=== PATIENT | female | born 1935 | race Caucasian/White ===

== ENCOUNTER 2018-10-29 18:55 | Observation (INO) | payer MEDICARE, OTHER, MEDICAID ==
[2018-10-29 19:37] LABS: #Basophils 0.2 thou/uL (0.0-0.2); #Eosinphils 0.7 thou/uL (0.0-0.7); #Lymphocytes 4.6 thou/uL (1.20-3.40); #Monocytes 0.5 thou/uL (0.11-0.59); #Neutrophils 4.2 thou/uL (1.40-6.50); %Basophils 2.2 % (0.0-1.0); %Eosinophils 6.6 % (0.0-10.0); %Monocytes 5.3 % (0.0-10.0); %Neutrophils 40.9 % (42.0-75.0); Hemoglobin 13.7 g/dL (12.0-16.0); Mean Corpuscular HGB CONC 32.5 g/dL (32.0-36.0); Mean Corpuscular Volume 92.5 fL (78.0-98.0); Mean Platelet Volume 7.1 fL (7.4-10.4); Platelet Count 265 thou/uL (130-400); RBC Distribution Width 13.8 % (11.5-14.5); Red Blood Cell (RBC) Count 4.57 mill/uL (4.20-5.40); White Blood Cell (WBC) Count 10.2 thou/uL (4.8-10.8)
--- NOTE | 2018-10-29 19:53 | RAD ---
PORTABLE CHEST: 10/29/18 HISTORY: Chest pain. Cough. Heart size is within normal limits. There are atherosclerotic changes of the aorta. Chronic lung alfaro ges are seen. No acute process demonstrated. IMPRESSION: No active intrathoracic disease. POS: [facility]
[2018-10-29 19:59] LABS: ALT (SGPT) 10 U/L (8-55); AST (SGOT) 16 U/L (5-34); Albumin 4.5 g/dL (3.4-4.8); Alkaline Phosphatase 120 U/L (40-150); Anion Gap 14 mmol/L (10-20); BUN (Urea Nitrogen) 16 mg/dL (9.8-20.1); Bilirubin, Total 0.3 mg/dL (0.2-1.2); Calc. Creatinine Clearance 0 mL/min (70-130); Calcium 11.2 mg/dL (7.8-10.44); Carbon Dioxide 29 mmol/L (23-31); Chloride 100 mmol/L (98-107); Estimated GFR-MDRD 41; Globulin 2.3 g/dL (2.4-3.5); Glucose 102 mg/dL (83-110); Lipase 25 U/L (8-78); Potassium 4.7 mmol/L (3.5-5.1); Protein, Total 6.8 g/dL (6.0-8.3); Sodium 138 mmol/L (136-145)
[2018-10-29] MEDS ORDERED: Aspirin Chewable 81 MG TAB ONE (20:58)
[2018-10-29] MEDS ORDERED: HYDROcodone/Acetaminophen 5/325 mg Tablet ONE (20:58)
[2018-10-29] MEDS ORDERED: Aspirin 325 MG TAB ONE (20:59)
[2018-10-29 23:04] VITALS: BMI 19.8
[2018-10-29] MEDS ORDERED: Acetaminophen 325 MG TAB PO PRN (23:04)
[2018-10-29 23:12] LABS: Troponin I Less than 0.010 ng/mL (< 0.028)
[2018-10-29] MEDS ORDERED: Nitroglycerin 0.4 MG TAB (25 Tab Bottle) PO PRN (23:47)
[2018-10-30] MEDS: levETIRAcetam 500 MG TAB PO SCH ×3 (00:11→20:34)
[2018-10-30] MEDS: diphenhydrAMINE 25 MG CAP PO SCH ×2 (00:11→20:32)
--- NOTE | 2018-10-30 00:42 | HP ---
PRIMARY CARE PHYSICIAN: Dr. Polk. CHIEF COMPLAINT: Chest pain. HISTORY OF PRESENT ILLNESS: Ms. Wilkerson is a pleasant 83-year-old female with past medical history significant for hypertension, hyperlipidemia, atrial flutter, status post CTI ablation with Dr. Morataya last year, and COPD with ongoing tobacco abuse, who presented to the hospital today with complaints of chest discomfort. She describes the discomfort as a pressure. It lasted for about 30 minutes and came on while she was watching TV. She denies any associated symptoms with the discomfort, however, states that she has had intermittent chest discomfort feeling like pressure over the past month or so. On arrival to the ER, workup included an EKG, which shows sinus rhythm with a right bundle-branch block. Her serial troponin has been negative x2. Her chest pain had resolved prior to her arrival at the ER, and she is currently chest pain free. The patient was seen by Dr. Morataya in June of 2017 at this facility, and the patient had ablation of left atrial atypical flutter. To her knowledge, she has had no recurrence of arrhythmia. She was advised to follow up with Cardiology outpatient, however, did not ever see them as an outpatient. REVIEW OF SYSTEMS: A 12-point review of systems performed and is negative except that stated above. She has been in her usual state of health and denies any fever or chills. She has some chronic issues involving her COPD and has a productive cough from time to time, and does suffer from occasional falls and uses a walker. ALLERGIES: AZITHROMYCIN, LEVOFLOXACIN, PENICILLINS, AND SULFA. CURRENT MEDICATIONS: 1. Tylenol No.4 one tablet p.o. b.i.d. 2. Enablex 15 mg p.o. at bedtime. 3. Diltiazem 30 mg p.o. t.i.d. 4. Benadryl 25 mg p.o. at bedtime. 5. Lexapro 20 mg p.o. daily. 6. Mucinex 600 mg p.o. b.i.d. 7. Keppra 500 mg p.o. b.i.d. 8. Losartan 100 mg p.o. daily. 9. Myrbetriq 25 mg p.o. daily. 10. Movantik 25 mg p.o. daily. PAST MEDICAL HISTORY: 1. Hypertension. 2. COPD/chronic respiratory failure requiring intermittent oxygen use with continued tobacco usage. 3. Chronic pain. 4. Anxiety disorder. 5. Seizure disorder, well controlled on Keppra. 6. Hyperlipidemia. 7. Incontinence. 8. Chronic constipation secondary to pain medications. PAST SURGICAL HISTORY: 1. EP study and CTI ablation of left atrial flutter in June 2017. 2. . SOCIAL HISTORY: The patient lives with family. She has smoked one pack per day for many years. She did briefly try to quit with E-cigarettes, but is currently back to smoking. No alcohol or illicit drug use. FAMILY HISTORY: Significant for MIs in her brother, sister, and father. Family history also significant for diabetes mellitus. PHYSICAL EXAMINATION: VITAL SIGNS: Blood pressure 161/86, O2 saturation 98% on 2 L nasal cannula, pulse 81, temperature 97.7. GENERAL: This is a well-nourished elderly female, resting comfortably in bed, in no acute distress. HEENT: Head is atraumatic and normocephalic. Mucous membranes are moist. NECK: Trachea is midline. No JVD. CV: S1 and S2. Regular rate and rhythm. No appreciable murmurs, rubs, or gallops. LUNGS: Regular respiratory rate and pattern, overall decreased vesicular breath sounds throughout. ABDOMEN: Positive bowel sounds. Soft, nontender. EXTREMITIES: No edema, warm, well perfused. NEUROLOGICAL: Cranial nerves 2 through 12 grossly intact. The patient is nonfocal. LABORATORY DATA: White blood cell count 10.2, hemoglobin 13.7, hematocrit 42.2, platelets are 265. Sodium 137, potassium 4.7, carbon dioxide 29, creatinine 1.25, glucose 102, calcium 11.2. Troponin negative x2. ASSESSMENT: 1. Intermittent chest pain, atypical and typical features in a patient with multiple risk factors, acute coronary syndrome ruled out. 2. Abnormal EKG/right bundle branch block. 3. Atrial flutter status post CTI ablation with Dr. Morataya, currently in normal sinus rhythm, CHADS-VASc equals 4. 4. Chronic obstructive pulmonary disease with ongoing tobacco abuse. 5. Hypertension. 6. Hyperlipidemia. 7. Seizure disorder, controlled with Keppra. 8. Elevated creatinine, no history of chronic kidney disease. 9. Chronic constipation. PLAN: Given the patient's risk factors and complaints, we will further risk stratify with nuclear stress test tomorrow morning. We will continue telemetry monitoring. We will get a fasting lipid panel in the morning. We will start 81 mg aspirin daily. Regarding her elevated Cr, the patient was given IV fluids in the ER, and we will recheck a chemistry in the morning. Further recommendations based on findings of noninvasive testing. Job ID: [id number] MTDD
[2018-10-30 01:59] LABS: Cardiac Risk 2.6 (Less than 4.5)
[2018-10-30 02:03] LABS: Anion Gap 14 mmol/L (10-20); BUN (Urea Nitrogen) 15 mg/dL (9.8-20.1); Calc. Creatinine Clearance 36 mL/min (70-130); Calcium 10.2 mg/dL (7.8-10.44); Carbon Dioxide 21 mmol/L (23-31); Chloride 105 mmol/L (98-107); Estimated GFR-MDRD 48; Glucose 102 mg/dL (83-110); Potassium 4.3 mmol/L (3.5-5.1); Sodium 136 mmol/L (136-145)
[2018-10-30 02:09] LABS: Troponin I Less than 0.010 ng/mL (< 0.028)
[2018-10-30] MEDS: Acetaminophen/Codeine 30-300mg Tablet PO SCH ×2 (08:21→20:33)
[2018-10-30] MEDS: guaiFENesin ER 600 MG TAB PO SCH ×2 (08:22→20:33)
[2018-10-30] MEDS: Aspirin 81 mg Enteric Coated Tablet PO SCH (08:22)
[2018-10-30] MEDS: Losartan 25 MG TAB PO SCH (12:55)
[2018-10-30] MEDS: Escitalopram Oxalate 20 mg Tablet PO SCH (12:56)
--- NOTE | 2018-10-30 14:24 | NM ---
MYOCARDIAL PERFUSION SCAN: The patient was given 10 mCi of technetium sestamibi for rest imaging and 30 mCi for stress imaging. Patient was stressed according to Lexiscan protocol. Left ventricle was imaged with SPECT imaging pro jected in three planes. Attenuation correction images obtained. INDICATION: Chest pain. FINDINGS: Decreased activity in the inferior wall corrects with attenuation correction. However, there is persi stent loss of activity in the lateral wall on stress images which appears to be reverse on rest imagi ng. Wall motion appears normal. Ejection fraction is recorded at over 70%. IMPRESSION: Evidence of reversible ischemia in the lateral wall. POS: OFF
[2018-10-30] MEDS ORDERED: Regadenoson 0.4 MG/5 ML SYRINGE ONE (16:55)
--- NOTE | 2018-10-30 18:10 | PDOC.HOSPP ---
- Subjective Encounter Date: 10/30/18 Encounter Time: 18:00 Subjective: f/u for chest pain with abnormal OPTICAL DISPENSER showing lateral wall reversibility. No new CP. - Objective Vital Signs & Weight: Vital Signs (12 hours) Temp Pulse Resp BP Pulse Ox 10/30/18 16:26 97.7 F 77 20 138/66 99 10/30/18 12:50 97.6 F 80 18 151/70 H 100 10/30/18 07:38 98.1 F 94 20 123/71 92 L Weight Weight 123 lb 1.6 oz I&O: 10/29/18 10/30/18 10/31/18 06:59 06:59 06:59 Intake Total 360 Output Total 250 Balance 110 Result Diagrams: 10/29/18 19:30 10/30/18 01:30 Additional Labs: Laboratory Tests 10/30/18 01:37 Triglycerides 73 Cholesterol 179 LDL Cholesterol, Calc 96 HDL Cholesterol 68 Radiology Reviewed by me: Yes (OPTICAL DISPENSER - reversible ischemia lat wall) EKG Reviewed by me: Yes (Tele - SR) Hospitalist ROS - Medication Medications: Active Medications Generic Name Dose Route Start Last Admin Trade Name Freq PRN Reason Stop Dose Admin Acetaminophen/Codeine Phosphate 1 tab 10/30/18 09:00 10/30/18 08:21 Tylenol #3 PO 1 tab BID NICKIE Administration Aspirin 81 mg 10/30/18 09:00 10/30/18 08:22 Ecotrin PO 81 mg DAILY NICKIE Administration Diltiazem HCl 30 mg 10/30/18 09:00 10/30/18 12:55 Cardizem PO 30 mg TID NICKIE Administration Diphenhydramine HCl 25 mg 10/29/18 23:45 10/30/18 00:11 Benadryl PO 10/31/18 01:00 25 mg NOW NICKIE Administration Escitalopram Oxalate 20 mg 10/30/18 09:00 10/30/18 12:56 Lexapro PO 20 mg DAILY NICKIE Administration Guaifenesin 600 mg 10/30/18 09:00 10/30/18 08:22 Mucinex PO 600 mg BID NICKIE Administration Levetiracetam 500 mg 10/30/18 09:00 10/30/18 08:22 Keppra PO 500 mg BID NICKIE Administration Levetiracetam 500 mg 10/29/18 23:45 09/14/19 00:11 Keppra PO 10/31/18 01:00 500 mg NOW NICKIE Administration Losartan Potassium 100 mg 10/30/18 09:00 10/30/18 12:55 Cozaar PO 100 mg DAILY NICKIE Administration Mirabegron 25 mg 10/30/18 09:00 10/30/18 12:56 Myrbetriq Er PO 25 mg DAILY NICKIE Administration Miscellaneous Medication 25 mg 10/30/18 09:00 10/30/18 12:56 Movantik PO Not Given DAILY NICKIE - Exam General Appearance: NAD, awake alert Eye: PERRL, anicteric sclera ENT: normocephalic atraumatic, no oropharyngeal lesions Neck: supple, symmetric, no JVD, no thyromegaly, no lymphadenopathy Heart: RRR, no murmur, no gallops, no rubs, normal peripheral pulses Respiratory: CTAB, no wheezes, no rales, no ronchi Gastrointestinal: soft, non-tender, non-distended, normal bowel sounds, no palpable masses Extremities: no cyanosis, no clubbing, no edema Skin: normal turgor, no lesions Neurological: cranial nerve grossly intact, no focal deficits, no new deficit Musculoskeletal: normal tone, normal strength Psychiatric: A&O x 3 Hosp A/P (1) Chest pain Code(s): R07.9 - CHEST PAIN, UNSPECIFIED Status: Acute Plan: Suspicious for angina with reversible ischemia noted on OPTICAL DISPENSER, consult Cardiology , continue ASA (2) Myocardial ischemia Code(s): I25.9 - CHRONIC ISCHEMIC HEART DISEASE, UNSPECIFIED Status: Acute Plan: Suspected given OPTICAL DISPENSER findings, see above (3) Tobacco abuse Code(s): Z72.0 - TOBACCO USE Status: Chronic Plan: Tobacco cessation resources (4) Chest mass Code(s): R22.2 - LOCALIZED SWELLING, MASS AND LUMP, TRUNK Status: Acute Plan: Suspected given findings on OPTICAL DISPENSER, check CT chest for better visualization - Plan plan discussed w/ family Consult Cardiology Continue ASA CT chest with contrast for ? chest mass Tobacco cessation resources IV NS @ 75ml/h
[2018-10-30] MEDS ORDERED: DARIFENACIN HYDROBROMIDE 15 MG PO SCH (21:00)
[2018-10-30] MEDS: Sodium Chloride 0.9% 1,000 ML IV SCH (21:29)
[2018-10-31] MEDS: diphenhydrAMINE 25 MG CAP PO SCH ×2 (02:02→20:29)
[2018-10-31] MEDS: levETIRAcetam 500 MG TAB PO SCH ×3 (02:03→20:30)
[2018-10-31] MEDS: Acetaminophen/Codeine 30-300mg Tablet PO SCH ×2 (09:04→20:29)
[2018-10-31] MEDS: guaiFENesin ER 600 MG TAB PO SCH ×2 (09:05→20:30)
[2018-10-31] MEDS: Losartan 25 MG TAB PO SCH (09:05)
[2018-10-31] MEDS: Escitalopram Oxalate 20 mg Tablet PO SCH (09:05)
[2018-10-31] MEDS: Aspirin 81 mg Enteric Coated Tablet PO SCH (09:05)
[2018-10-31] MEDS: Sodium Chloride 0.9% 1,000 ML IV SCH ×2 (10:26→11:39)
--- NOTE | 2018-10-31 13:02 | CT ---
CHEST CT WITH CONTRAST: HISTORY: Evaluate for possible mediastinal mass. Tobacco abuse. COMPARISON: None. FINDINGS: MEDIASTINUM: No mass, lymphadenopathy, or hematoma. HEART: Normal heart size. No significant pericardial fluid. There is atherosclerosis of a nonaneurysmal aorta. UPPER ABDOMEN: Visualized upper solid abdominal viscera is grossly unremarkable. TRACHEA AND CENTRAL BRONCHI: Patent. No pleural effusion or pneumothorax. Linear opacities scattered throughout the lung parenchyma likely represent areas of scar and atelecta sis. Emphysematous changes are noted with evidence of hyperinflation. RIGHT LUNG: Scarring in the upper lobe, middle lobe, and lower lobe. Calcified nodule in the lower l obe measuring 1 cm. There is a linear opacity with a nodular component involving the anterior superi or aspect of the right lower lobe. This lesion measures 1.8 cm in the maximum dimension. The nodula r component which is best demonstrated on the coronal reformatted images measures 0.7 cm in the crani ocaudal dimension. This lesion is amenable to PET imaging. LEFT LUNG: Linear opacities in the upper lobe and lower lobe likely representing areas of scarring. There is an irregular marginated opacity in the superior segment of the left lower lobe measuring 0.9 x 0.9 x 0.9 cm. Irregular marginated mass/nodule versus focal area of scarring is a consideration. Based on the size of the lesion, PET imaging is recommended, rather than performing a biopsy which w ill be technically difficult as the lesion abuts the major fissure and is located along the central a spect of the lung. OSSEOUS STRUCTURES: No lytic or blastic lesions. IMPRESSION: Irregular marginated opacities involving the left and right lower lobe which may represent irregular masses versus areas of scarring. Further evaluation with PET imaging is recommended. POS: OFF
[2018-10-31] MEDS ORDERED: Communication Order-Pharmacy FS SCH (13:15)
--- NOTE | 2018-10-31 14:06 | PDOC.HOSPP ---
- Subjective Encounter Date: 10/31/18 Encounter Time: 14:00 Subjective: f/u for CP and abnormal LABORER CHEESEMAKING with suggestion of reversible ischemia of lateral wall. Plan for [facility] 11/01/18. - Objective Vital Signs & Weight: Vital Signs (12 hours) Temp Pulse Resp BP BP Pulse Ox 10/31/18 12:15 97.8 F 72 20 148/68 H 98 10/31/18 07:48 98 F 84 20 142/73 H 97 10/31/18 04:03 75 18 133/65 98 Weight Weight 123 lb 1.6 oz I&O: 10/30/18 10/31/18 11/01/18 06:59 06:59 06:59 Intake Total 1200 1094 Output Total 250 Balance 950 1094 Result Diagrams: 10/29/18 19:30 10/30/18 01:30 Additional Labs: Laboratory Tests 10/30/18 01:37 Triglycerides 73 Cholesterol 179 LDL Cholesterol, Calc 96 HDL Cholesterol 68 Radiology Reviewed by me: Yes (CT chest - ? scarring in bilat bases, no dominant mass) EKG Reviewed by me: Yes (Tele - SR) Hospitalist ROS - Medication Medications: Active Medications Generic Name Dose Route Start Last Admin Trade Name Freq PRN Reason Stop Dose Admin Acetaminophen/Codeine Phosphate 1 tab 10/30/18 09:00 10/31/18 09:04 Tylenol #3 PO 1 tab BID NICKIE Administration Aspirin 81 mg 10/30/18 09:00 10/31/18 09:05 Ecotrin PO 81 mg DAILY NICKIE Administration Diltiazem HCl 30 mg 10/30/18 09:00 10/31/18 09:05 Cardizem PO 30 mg TID NICKIE Administration Diphenhydramine HCl 25 mg 10/30/18 21:00 10/30/18 20:32 Benadryl PO 25 mg HS NICKIE Administration Escitalopram Oxalate 20 mg 10/30/18 09:00 10/31/18 09:05 Lexapro PO 20 mg DAILY NICKIE Administration Guaifenesin 600 mg 10/30/18 09:00 10/31/18 09:05 Mucinex PO 600 mg BID NICKIE Administration Sodium Chloride 1,000 mls @ 75 mls/hr 10/30/18 19:45 10/31/18 11:39 Normal Saline 0.9% IV 1,000 mls .[id number] NICKIE Administration Levetiracetam 500 mg 10/30/18 09:00 10/31/18 09:05 Keppra PO 500 mg BID NICKIE Administration Losartan Potassium 100 mg 10/30/18 09:00 10/31/18 09:05 Cozaar PO 100 mg DAILY NICKIE Administration Mirabegron 25 mg 10/30/18 09:00 10/31/18 09:05 Myrbetriq Er PO 25 mg DAILY NICKIE Administration Miscellaneous Medication 25 mg 10/30/18 09:00 10/31/18 09:05 Movantik PO Not Given DAILY NICKIE - Exam General Appearance: NAD, awake alert Eye: PERRL, anicteric sclera ENT: normocephalic atraumatic, no oropharyngeal lesions Neck: supple, symmetric, no JVD, no thyromegaly, no lymphadenopathy Heart: RRR, no murmur, no gallops, no rubs, normal peripheral pulses Respiratory: CTAB, no wheezes, no rales, no ronchi Gastrointestinal: soft, non-tender, non-distended, normal bowel sounds Extremities: no cyanosis, no clubbing, no edema Skin: normal turgor, no lesions Neurological: cranial nerve grossly intact, no focal deficits, no new deficit Musculoskeletal: normal tone Psychiatric: normal affect, A&O x 3 Hosp A/P (1) Chest pain Code(s): R07.9 - CHEST PAIN, UNSPECIFIED Status: Acute Plan: Concern for angina and suggestion of reversible ischemia on LABORER CHEESEMAKING, plan for [facility] , continue ASA (2) Myocardial ischemia Code(s): I25.9 - CHRONIC ISCHEMIC HEART DISEASE, UNSPECIFIED Status: Acute Plan: See above, Nitrates prn (3) Tobacco abuse Code(s): Z72.0 - TOBACCO USE Status: Chronic Plan: Tobacco cessation resources (4) Chest mass Code(s): R22.2 - LOCALIZED SWELLING, MASS AND LUMP, TRUNK Status: Chronic Plan: Likely scarrring in bilat bases, recommend outpt PET scan on non-emergent basis - Plan plan discussed w/ family, social services counselor, out of bed/ambulate Cardiology consult appreciated Continue ASA Outpt PET scan recommended on non-emergent basis Tobacco cessation resources IV NS @ 100ml/h NPO after MN Plan for [facility] 11/01/18
[2018-11-01] MEDS: Aspirin 81 mg Enteric Coated Tablet PO SCH (05:43)
[2018-11-01] MEDS: Losartan 25 MG TAB PO SCH (05:44)
[2018-11-01] MEDS ORDERED: Sodium Chloride 0.9% 1,000 ML IV SCH (06:00)
[2018-11-01] MEDS ORDERED: Lidocaine 1% (PF) 30 ML VIAL ONE (06:33)
--- NOTE | 2018-11-01 07:21 | CON ---
DATE OF CONSULTATION: REASON FOR CONSULTATION: Chest pain. PRIMARY JEWELRY SETTER: Dr. Ja Olvera. HISTORY OF PRESENT ILLNESS: Ms. Wilkerson is a pleasant 83-year-old woman, who states she has had chest pain over the last month. The pain has been intermittent. The pain is occurring at rest. No other ameliorating, exacerbating, or precipitating factors. She recently underwent a noninvasive stress test that it was felt to be positive for ischemia along the lateral wall. PAST MEDICAL HISTORY: Atrial flutter, status post ablation; hypertension; COPD; anxiety disorder; seizure disorder; hyperlipidemia, incontinence, . SOCIAL HISTORY: Positive tobacco use. HOME MEDICATIONS: Included; 1. Tylenol. 2. Enablex. 3. Diltiazem. 4. Benadryl. 5. Lexapro. 6. Mucinex. 7. Keppra. 8. Losartan. 9. Myrbetriq. 10. Movantik. REVIEW OF SYSTEMS: Reviewed and negative. PHYSICAL EXAMINATION: VITAL SIGNS: Blood pressure 148/68, pulse 72, and temp 97.8. GENERAL: The patient does appear older than stated age and thin. LABORATORY DATA: CK troponin negative. Hemoglobin 13.7, creatinine 1.09. Stress test and myocardial perfusion study as described above. CT scan pending for abnormal uptake on the radiotracer from the stress study. IMPRESSION: 1. Recurrent chest pain. 2. Risk factor for coronary artery disease including tobacco abuse. 3. Abnormal stress study. RECOMMENDATION: Discussed several options with Ms. Wilkerson including medical therapy versus proceeding with coronary angiography. I am concerned that her symptoms have started within the last month with little exertion. The patient has opted for proceeding with coronary angiography, discussed the full detail. Ms. Wilkerson risks included, but not limited to the following: , stroke, [place], need for emergency surgery, loss of limb, bleeding, and infection, as well as a reaction to the dye causing kidney failure and needing long-term dialysis. I also discussed the risks of PCI to include all of the above including coronary dissection and perforation in addition to acute stent thrombosis and restenosis. All questions about the procedure were answered. Given the above, the patient agreed to proceed with procedure. All questions were answered. Also discussed drug-coated versus non-drug coated stent placement. If there is no contraindication, we will proceed with the above procedure. CT results pending. Job ID: [id number]
[2018-11-01] MEDS ORDERED: Heparin 10,000 UNITS/1 ML VIAL ONE (07:24)
[2018-11-01] MEDS ORDERED: Nitroglycerin 100MG/250ML BOT 0 ML ONE (07:24)
[2018-11-01] MEDS ORDERED: Verapamil 5 MG/2 ML VIAL ONE (07:24)
[2018-11-01] MEDS ORDERED: Iopamidol 370 76% 100 ML VIAL ONE (09:43)
[2018-11-01] MEDS ORDERED: Fentanyl 100 MCG/2 ML VIAL ONE (09:56)
[2018-11-01] MEDS ORDERED: Midazolam HCl 2 mg/2 ml Vial ONE (09:56)
[2018-11-01] MEDS ORDERED: Sodium Chloride 0.9% 200 ML IV PRN (10:13)
[2018-11-01] MEDS ORDERED: Sodium Chloride 0.9% 500 ML IV SCH (10:15)
[2018-11-01] MEDS: Acetaminophen/Codeine 30-300mg Tablet PO SCH (11:29)
[2018-11-01] MEDS: Escitalopram Oxalate 20 mg Tablet PO SCH (11:30)
[2018-11-01] MEDS: levETIRAcetam 500 MG TAB PO SCH (11:30)
[2018-11-01] MEDS: guaiFENesin ER 600 MG TAB PO SCH (11:30)
[2018-11-01 16:18] VITALS: BP 149/67; TEMP 98.1
--- NOTE | 2018-11-02 00:32 | DIS ---
DATE OF ADMISSION: 10/29/2018 DATE OF DISCHARGE: 11/01/2018 DISCHARGE DIAGNOSES: 1. Coronary artery disease, mild. Medical management. 2. Chest pain secondary to #1, improved. 3. Tobacco abuse, chronic. 4. Dyslipidemia. 5. Lung nodule versus scarring. CONSULTATIONS: Dr. Woodward and Dr. Olvera with Cardiology Service. PERTINENT LABORATORY AND X-RAY FINDINGS: Creatinine ranged between 1.09 to 1.25. Estimated GFR ranged between 41 to 48. Troponin I negative x3. Total cholesterol 179, triglyceride 73, HDL 68, LDL 96, lipase 25. CBC within normal limits. Portable chest x-ray dated 10/29/2018, showed no acute cardiopulmonary process. Cardiolite stress test dated 10/30/2018, showed reversible ischemia in the lateral wall with calculated ejection fraction of 70%. Cardiac catheterization dated 11/01/2018, showed severe ostial disease 70% involving small vessel. No significant coronary artery disease otherwise noted. Ejection fraction preserved. CT of the chest dated 10/31/2018, showed irregular marginated opacities of the left and right lower lobe, questionable mass versus scarring. Recommending outpatient nonemergent PET scan imaging. HOSPITAL COURSE: The patient was initially admitted after presenting with chest pain with multiple risk factors to include dyslipidemia and tobacco abuse. The patient underwent serial cardiac biomarkers, which were negative x3 proceeding to Cardiolite stress testing showing evidence of reversible ischemia in the lateral wall with preserved ejection fraction of 70%. Cardiology consultation was obtained, at which point, the patient underwent cardiac catheterization on 11/01/2018, showing limited coronary disease of small vessel with ostial lesion in the intermediate ramus with recommendations for medical management. The patient continued on aspirin 81 mg daily with additional Lipitor 40 mg daily. Telemetry monitoring showed sinus mechanism without evidence of acute arrhythmia or dysrhythmia. The patient also underwent evaluation for questionable lung mass including CT of the chest showing irregular areas of opacities in bilateral lung flanagan, potentially representing scar. Current recommendations are for outpatient nonemergent PET scan imaging. Overall, the patient did remain clinically stable during the hospital course. I have examined the patient at time of discharge and discussed followup instructions. The patient verbalized understanding and in agreement, and ready for discharge on 11/01/2018. DISCHARGE MEDICATIONS: 1. Enteric-coated aspirin 81 mg p.o. daily. 2. Isosorbide mononitrate 30 mg p.o. daily. 3. Lipitor 40 mg p.o. daily. 4. Movantik 25 mg p.o. daily. 5. Myrbetriq 25 mg p.o. daily. 6. Losartan 100 mg p.o. daily. 7. Keppra 500 mg p.o. b.i.d. 8. Mucinex ER 600 mg p.o. b.i.d. p.r.n. 9. Lexapro 20 mg p.o. daily. 10. Benadryl 25 mg p.o. at bedtime. 11. Diltiazem 30 mg p.o. t.i.d. 12. Darifenacin hydrobromide 15 mg p.o. at bedtime. 13. Tylenol mg 1 tablet p.o. b.i.d. FOLLOWUP: The patient may follow up with her primary care provider, Dr. Polk within 7 days of discharge. CONDITION ON DISCHARGE: Stable. ACTIVITY: Ad-minal. DIET: Heart healthy. CODE STATUS: Full. DISPOSITION: Home on 11/01/2018. TIME SPENT: Total time preparing and coordinating discharge, 33 minutes. Job ID: [id number]
[2018-11-02] MEDS ORDERED: Isosorbide Mononitrate (ER) 30 MG TAB PO SCH (09:00)
== END 2018-11-01 18:28 | disposition home or self-care (01) ==
LOC: ERS 18:55 → 2SW 20:51 → ERS 22:47
PROVIDERS: ADMIT Internal Medicine; ATTEND Internal Medicine
PROC: 4A023N7 Measurement of Cardiac Sampling and Pressure, Left Heart, Percutaneous Approach (ICD-10-PCS; principal; 2018-10-29)
PROC: B2051ZZ Plain Radiography of Left Heart using Low Osmolar Contrast (ICD-10-PCS; 2018-10-29)
DX: I25.10 Atherosclerotic heart disease of native coronary artery without angina pectoris (principal); E78.5 Hyperlipidemia, unspecified; I10 Essential (primary) hypertension; J44.9 Chronic obstructive pulmonary disease, unspecified; G40.909 Epilepsy, unspecified, not intractable, without status epilepticus; F41.9 Anxiety disorder, unspecified; K59.09 Other constipation; F17.210 Nicotine dependence, cigarettes, uncomplicated; Z79.899 Other long term (current) drug therapy; Z88.0 Allergy status to penicillin; Z88.1 Allergy status to other antibiotic agents; Z88.2 Allergy status to sulfonamides
CPT/HCPCS: 71045; 71260; 78452; 80048; 80053; 80061; 83690; 84484 ×3; 85025; 93005; 93017; 93458; 94760 ×4; 96360; 96361 ×3; 99285; A9500; C1769; G0378 ×5; 36415; 99152; J1644; J2001; J2250; J2785; J3010; Q0163; Q9967

== ENCOUNTER 2019-02-28 14:18 | Observation (INO) | payer MEDICARE, OTHER, MEDICAID ==
--- NOTE | 2019-02-28 14:47 | RAD ---
RADIOGRAPH CHEST 1 VIEW: Date: 02/28/2019 Time: 1443 HOURS HISTORY: 84-year-old female with sudden onset of cough and chest pain. COMPARISON: 10/29/2018. FINDINGS: New finding of silhouetting of the lateral aspect of the left hemidiaphragm with adjacent faint, subt le small area of slightly increased attenuation at the left lateral lung base. No cardiomegaly or pul monary edema. No consolidation. Chronic right apical stranding. IMPRESSION: Subtle new mild change at left lateral lung base. Uncertain whether chronic or acute. Recommend follo w-up with 2 view radiograph in a few days. JN [] POS: OFF
[2019-02-28 14:57] LABS: #Basophils 0.1 thou/uL (0.0-0.2); #Lymphocytes 3.5 thou/uL (1.20-3.40); %Basophils 1.1 % (0.0-1.0); %Eosinophils 0.3 % (0.0-10.0); %Lymphocytes 32.5 % (21.0-51.0); %Monocytes 9.7 % (0.0-10.0); %Neutrophils 56.3 % (42.0-75.0); Hemoglobin 13.2 g/dL (12.0-16.0); Mean Corpuscular HGB CONC 30.8 g/dL (32.0-36.0); Mean Corpuscular Hemoglobin 28.1 pg (27.0-31.0); Mean Corpuscular Volume 91.4 fL (78.0-98.0); Mean Platelet Volume 7.8 fL (7.4-10.4); Platelet Count 271 thou/uL (130-400); RBC Distribution Width 14.5 % (11.5-14.5); Red Blood Cell (RBC) Count 4.71 mill/uL (4.20-5.40); White Blood Cell (WBC) Count 10.7 thou/uL (4.8-10.8)
[2019-02-28 15:03] LABS: ALT (SGPT) 13 U/L (8-55); AST (SGOT) 13 U/L (5-34); Albumin 4.3 g/dL (3.4-4.8); Alkaline Phosphatase 122 U/L (40-110); Anion Gap 10 mmol/L (10-20); BUN (Urea Nitrogen) 29 mg/dL (9.8-20.1); Bilirubin, Total 0.5 mg/dL (0.2-1.2); CK (CPK) 25 U/L (29-168); Calc. Creatinine Clearance 0 mL/min (70-130); Calcium 11.1 mg/dL (7.8-10.44); Carbon Dioxide 32 mmol/L (23-31); Chloride 99 mmol/L (98-107); Estimated GFR-MDRD 49; Globulin 2.7 g/dL (2.4-3.5); Glucose 97 mg/dL (83-110); Potassium 3.8 mmol/L (3.5-5.1); Sodium 137 mmol/L (136-145)
[2019-02-28 18:10] LABS: Troponin I 0.027 ng/mL (< 0.028)
[2019-02-28] MEDS ORDERED: Ondansetron ODT 4 MG TAB SL PRN (18:15)
[2019-02-28] MEDS ORDERED: Acetaminophen 325 MG TAB PO PRN (18:15)
[2019-02-28] MEDS ORDERED: Ondansetron PF 4 MG/2 ML Vial IVP PRN (18:15)
[2019-02-28 18:28] VITALS: BMI 17.2
[2019-02-28] MEDS ORDERED: ADVIL PM PO PRN (19:16)
[2019-02-28] MEDS: Trospium 20 MG TAB PO SCH (19:57)
[2019-02-28] MEDS: guaiFENesin ER 600 MG TAB PO SCH (19:57)
[2019-02-28] MEDS: levETIRAcetam 500 MG TAB PO SCH (19:57)
[2019-02-28] MEDS ORDERED: TYLENOL #4 PATIENT'S HOME MEDICATION PO SCH (21:00)
[2019-02-28] MEDS ORDERED: Atorvastatin Calcium 40 MG TAB PO SCH (21:00)
[2019-02-28] MEDS ORDERED: diphenhydrAMINE 25 MG CAP PO SCH (21:00)
[2019-02-28 21:05] LABS: Troponin I 0.026 ng/mL (< 0.028)
[2019-03-01] MEDS: levETIRAcetam 500 MG TAB PO SCH (08:32)
[2019-03-01] MEDS: guaiFENesin ER 600 MG TAB PO SCH (08:33)
[2019-03-01] MEDS: Trospium 20 MG TAB PO SCH ×2 (08:41→08:43)
[2019-03-01] MEDS ORDERED: Losartan 25 MG TAB PO SCH (09:00)
[2019-03-01] MEDS ORDERED: Loratadine 10 MG TAB PO SCH (09:00)
[2019-03-01] MEDS ORDERED: Isosorbide Mononitrate (ER) 30 MG TAB PO SCH ×2 (09:00→12:45)
[2019-03-01] MEDS ORDERED: Escitalopram Oxalate 20 mg Tablet PO SCH (09:00)
--- NOTE | 2019-03-01 10:26 | HP ---
CHIEF COMPLAINT: Chest pain. HISTORY OF PRESENT ILLNESS: Ms. Wilkerson is an 84-year-old female with past medical history of hypertension, COPD, mild CAD, came because of onset of chest pain in the morning. The patient states she had a sharp pain in the chest, lasted only just few minutes and not associated with any diaphoresis. No nausea or vomiting. No shortness of breath. No dizziness. The pain went away after few minutes, but came back, so it was on and off, lasted only just 2 to 3 minutes. It does not radiate, stays in the chest. It is the substernal area. She does have some cough, but not productive. No fever. The patient decided to come to the hospital because of this pain. By the time she came to the ER, her pain has gone and in the ER the patient was evaluated and found to have normal cardiac enzymes and a normal EKG. She is being admitted to rule out [place] in view of her risk factors. PAST MEDICAL HISTORY: 1. COPD. 2. Hypertension. 3. Chronic back pain. 4. Anxiety disorder. 5. Seizure disorder. 6. Urinary incontinence. 7. Hyperlipidemia. PAST SURGICAL HISTORY: Status post . CURRENT MEDICATIONS: 1. Diltiazem 30 mg t.i.d. 2. Lipitor 40 mg at bedtime. 3. Lexapro 20 mg daily. 4. Mucinex 600 b.i.d. 5. Imdur 30 mg daily. 6. Keppra 500 b.i.d. 7. Claritin 10 mg daily. 8. Losartan 100 mg daily. 9. Myrbetriq 25 mg daily. 10. Movantik 25 mg daily p.r.n. 11. Tylenol No. 4 q.i.d. t.i.d. p.r.n. ALLERGIES: AZITHROMYCIN, LEVOFLOXACIN, PENICILLIN, SULFA. FAMILY HISTORY: Nothing contributory. SOCIAL HISTORY: The patient lives with family. No history of alcohol, continues to smoke half a pack a day. REVIEW OF SYSTEMS: CARDIOVASCULAR: Has chest pain. No shortness of breath. RESPIRATORY: No fever, has some cough. GASTROINTESTINAL: No nausea or vomiting, no abdominal pain. CENTRAL NERVOUS SYSTEM: No headache, no dizziness. PHYSICAL EXAMINATION: GENERAL: The patient is alert, awake, oriented x3. VITAL SIGNS: Temperature 98, pulse 82, respirations 20, blood pressure 170/80. HEENT: Head is normocephalic, atraumatic. Pupils are equal and reactive. Nasopharynx is pale and dry. NECK: Supple. No JVD. LUNGS: Bilateral air entry present. No rales, no rhonchi. HEART: S1 and S2, regular. ABDOMEN: Soft. No distention. No tenderness. No abnormal bowel sounds. RECTAL: Deferred. CENTRAL NERVOUS SYSTEMS: No focal deficits. LABORATORY DATA: CBC shows WBC 10, hemoglobin 13, hematocrit 43, platelets 271. Metabolic panel: Sodium 137, potassium 3.8, chloride 99, CO2 of 32, BUN 29, creatinine 1, glucose 97. Troponin I 0.026. Alkaline phosphatase 122. EKG shows sinus tachycardia with heart rate of 81, no acute ST-T changes seen. ASSESSMENT: 1. Chest pain, atypical, rule out myocardial infarction. 2. Recent coronary angiogram showed mild coronary artery disease in October 2018. 3. Hypertension. 4. Chronic obstructive pulmonary disease. 5. Hyperlipidemia. 6. Chronic back pain. 7. Urinary incontinence. PLAN: 1. Vital signs q.4 hours. 2. Activities, as tolerated. 3. Allergies, azithromycin, sulfa, Levaquin. 4. Hep-Lock. 5. Troponin I q.6 hours x2. 6. Continue home medications. 7. DuoNeb q.i.d. p.r.n. 8. Cardiology consult. Job ID: [id number]
--- NOTE | 2019-03-01 13:15 | CON ---
DATE OF CONSULTATION: 03/01/2019 REASON FOR CONSULTATION: Chest pain. HISTORY OF PRESENT ILLNESS: Mrs. Wilkerson is a pleasant 84-year-old white female who comes to the hospital for chest pain. She was seen in the hospital back in October. She had a stress test and eventually underwent heart catheterization that showed severe intermediate ramus disease, too small for any intervention and she was treated medically for this. She was started on Imdur and sent home. She comes back today as she states that she has had a different type of pain, which is worse when she takes a deep breath. She otherwise denies pain that she has had in the past. She denies any shortness of breath. She continues to smoke almost a pack a day. PAST MEDICAL HISTORY: 1. History of atrial flutter, status post ablation. 2. Hypertension. 3. COPD. 4. Anxiety disorder. 5. Seizure disorder. 6. Hyperlipidemia. 7. Incontinence. 8. . SOCIAL HISTORY: Positive for tobacco use pack a day. FAMILY HISTORY: Noncontributory. OUTPATIENT MEDICATIONS: 1. Tylenol. 2. Advil. 3. Zyrtec. 4. Movantik. 5. Imdur 30 mg a day. 6. Lipitor 40 at bedtime. 7. Lexapro. 8. Keppra. 9. Mucinex. 10. Benadryl. 11. Losartan 100 mg a day. 12. Enablex. 13. Diltiazem 30 mg t.i.d. 14. Myrbetriq. ALLERGIES: AZITHROMYCIN, LEVOFLOXACIN, PENICILLINS, AND SULFA DRUGS. REVIEW OF SYSTEMS: A 12-point review of systems was done and was all negative unless stated in the history of present illness. PHYSICAL EXAMINATION: VITAL SIGNS: Temperature 98.4, pulse 89, respiratory rate 18, saturating 96% on 2 L, and blood pressure 155/76. GENERAL: Awake, alert, and oriented x3, in no distress. HEENT: Normocephalic and atraumatic. NECK: Supple. LUNGS: Clear. CARDIOVASCULAR: S1 and S2. No S3 or S4. No murmurs. ABDOMEN: Soft. Positive bowel sounds. EXTREMITIES: No edema. SKIN: Warm and dry. LABORATORY DATA: Laboratory work was reviewed. CBC unremarkable. Chemistries unremarkable. Troponin is negative x3. BNP was 74. ASSESSMENT AND PLAN: 1. Chest pain, likely noncardiac in nature. Looking back, she had a CAT scan of her chest back in October, which showed an irregular marginated opacity involving the left and right lower lobe, which was thought to be either irregular masses versus areas of scarring. Further evaluation with PET imaging was recommended, I am not sure if this has happened. I would probably either repeat the CT with contrast to make sure these are stable before sending her out. 2. We will increase her Imdur to 60 mg daily to control her blood pressure better and hopefully if there is any component of angina, this will also improved with this. Thank you for letting us to participate in the care of your patient. We will follow. Job ID: [id number]
[2019-03-01] MEDS ORDERED: Iopamidol 370 76% 100 ML VIAL ONE (13:34)
--- NOTE | 2019-03-01 13:43 | CT ---
EXAM: CT of the chest with contrast HISTORY: Chest pain with possible intrathoracic mass COMPARISON: CT chest 10/31/2018 and chest x-ray 02/28/2019 TECHNIQUE: Multiple contiguous axial images were obtained in a CT the chest with contrast. Coronal an d sagittal reformats were performed. FINDINGS: HEART: Normal in size without focal cardiac abnormality MEDIASTINUM: No hilar or mediastinal lymphadenopathy. LUNGS: Atelectasis is seen in the left lower lobe. No central mass is seen. Bronchiectasis is seen in the right middle lobe. Emphysematous changes are seen throughout the lungs. A calcified granuloma is seen in the right lung base. PLEURAL SPACE: No pneumothorax or pleural effusion. CHEST WALL SOFT TISSUES: Unremarkable OSSEOUS STRUCTURES: Degenerative changes in the spine. VISUALIZED SUBDIAPHRAGMATIC STRUCTURES: Cysts in the left kidney. IMPRESSION: Left basilar atelectasis
[2019-03-01 15:27] VITALS: BP 147/67; TEMP 97.8
[2019-03-02] MEDS ORDERED: Isosorbide Mononitrate (ER) 30 MG TAB PO SCH (09:00)
--- NOTE | 2019-03-02 12:57 | DIS ---
DATE OF ADMISSION: 02/28/2019 DATE OF DISCHARGE: 03/01/2019 ADMITTING DIAGNOSES: 1. Chest pain, atypical, rule out myocardial infarction. 2. Recent coronary angiogram showed mild coronary artery disease. 3. Hypertension. 4. Chronic obstructive pulmonary disease. 5. Hyperlipidemia. 6. Chronic back pain. 7. Urinary incontinence. FINAL DIAGNOSES: 1. Chest pain, atypical. No evidence of acute myocardial infarction. 2. Hypertension. 3. Chronic obstructive pulmonary disease. 4. Hyperlipidemia. 5. Chronic back pain. BRIEF SUMMARY OF HOSPITAL COURSE: Ms. Wilkerson is an 84-year-old female admitted because of chest pain, which is atypical, sharp in nature, not associated with any diaphoresis. No nausea or vomiting. No shortness of breath. Pain does not radiate and the patient admitted to rule out myocardial infarction in view of risk factors. Serial cardiac enzymes were done. The second troponin I was 0.27, next troponin I was 0.26. The patient did not have any more chest pain. The patient had an angiogram done few months ago. So, in view of improvement, the patient is discharged home. At the time of discharge, she was stable. Her vital signs are stable. Lungs, clear, heart sounds regular. Abdomen is soft and nontender. Bowel sounds present. DISCHARGE MEDICATIONS: Include, 1. Tylenol with codeine No.4 q.i.d. 2. Movantik 25 mg daily. 3. Myrbetriq 25 mg daily. 4. Losartan 100 mg daily. 5. Enablex 15 mg daily. 6. Mucinex 600 b.i.d. 7. Lexapro 20 mg daily. 8. Diltiazem 30 mg t.i.d. 9. Benadryl 25 mg at bedtime. 10. Keppra 500 b.i.d. 11. Isosorbide mononitrate (Imdur) increased to 60 mg daily. FOLLOWUP: The patient will come for followup in 2 weeks. Job ID: [id number]
--- NOTE | 2019-03-05 14:20 | EKG ---
Test Reason : Blood Pressure : / mmHG Vent. Rate : 081 BPM Atrial Rate : 081 BPM P-R Int : 184 ms QRS Dur : 136 ms QT Int : 418 ms P-R-T Axes : 078 066 074 degrees QTc Int : 485 ms Sinus rhythm with marked sinus arrhythmia Right bundle branch block Abnormal ECG Confirmed by JOSELUIS SEGUNDO DO ([id number]), editorial clerk ALISHA MALIK ([id number]) on 03/05/2019 2:20:35 PM Referred By: Confirmed By:JOSELUIS SEGUNDO DO
== END 2019-03-01 19:13 | disposition home or self-care (01) ==
LOC: ERS 14:18 → 2SW 17:10
PROVIDERS: ADMIT Internal Medicine; ATTEND Internal Medicine
DX: R07.89 Other chest pain (principal); J44.9 Chronic obstructive pulmonary disease, unspecified; I10 Essential (primary) hypertension; I25.10 Atherosclerotic heart disease of native coronary artery without angina pectoris; E78.5 Hyperlipidemia, unspecified; F41.9 Anxiety disorder, unspecified; G40.909 Epilepsy, unspecified, not intractable, without status epilepticus; G89.29 Other chronic pain; M54.9 Dorsalgia, unspecified; F17.210 Nicotine dependence, cigarettes, uncomplicated; R32 Unspecified urinary incontinence; Z79.899 Other long term (current) drug therapy; Z88.0 Allergy status to penicillin; Z88.1 Allergy status to other antibiotic agents; Z88.2 Allergy status to sulfonamides
CPT/HCPCS: 71045; 71260; 80053; 82550; 83880; 84484 ×2; 85025; 93005; 94760; 99285; G0378 ×3; 36415; Q0163; Q9967

== ENCOUNTER 2019-04-19 15:31 | Emergency (ER) | payer MEDICARE, OTHER, MEDICAID ==
--- NOTE | 2019-04-19 16:16 | RAD ---
FRONTAL RADIOGRAPH CHEST: 04/19/19 COMPARISON: 02/28/19 HISTORY: Shortness of breath with left lower quadrant hernia and dental pain/dyspnea. FINDINGS: There is atherosclerotic calcification of the aortic arch. No pneumothorax or pleural fluid is seen a nd there is no focal consolidation or alveolar edema. There is mild increased linear density in the l sheri bases which suggests scar and/or volume loss. No lobar consolidation or alveolar edema. IMPRESSION: Chronic findings as detailed above. No focal consolidation or alveolar edema. If symptoms persists, t wo view examination of the chest may be beneficial. POS: EMELY
[2019-04-19 16:38] LABS: #Basophils 0.1 thou/uL (0.0-0.2); #Eosinphils 0.4 thou/uL (0.0-0.7); #Lymphocytes 2.1 thou/uL (1.20-3.40); #Monocytes 0.8 thou/uL (0.11-0.59); #Neutrophils 11.3 thou/uL (1.40-6.50); %Basophils 0.7 % (0.0-1.0); %Eosinophils 2.5 % (0.0-10.0); %Lymphocytes 14.4 % (21.0-51.0); %Monocytes 5.7 % (0.0-10.0); %Neutrophils 76.7 % (42.0-75.0); Hemoglobin 13.3 g/dL (12.0-16.0); Mean Corpuscular HGB CONC 32.9 g/dL (32.0-36.0); Mean Corpuscular Hemoglobin 29.7 pg (27.0-31.0); Mean Corpuscular Volume 90.5 fL (78.0-98.0); Mean Platelet Volume 6.7 fL (7.4-10.4); Platelet Count 360 thou/uL (130-400); RBC Distribution Width 14.6 % (11.5-14.5); Red Blood Cell (RBC) Count 4.48 mill/uL (4.20-5.40); White Blood Cell (WBC) Count 14.8 thou/uL (4.8-10.8)
[2019-04-19 17:06] LABS: ALT (SGPT) 8 U/L (8-55); AST (SGOT) 19 U/L (5-34); Albumin 3.7 g/dL (3.4-4.8); Alkaline Phosphatase 130 U/L (40-110); Anion Gap 13 mmol/L (10-20); BUN (Urea Nitrogen) 16 mg/dL (9.8-20.1); Bilirubin, Total 0.3 mg/dL (0.2-1.2); Calc. Creatinine Clearance 0 mL/min (70-130); Calcium 10.7 mg/dL (7.8-10.44); Carbon Dioxide 25 mmol/L (23-31); Chloride 98 mmol/L (98-107); Estimated GFR-MDRD 46; Globulin 3.6 g/dL (2.4-3.5); Glucose 109 mg/dL (83-110); Lipase 20 U/L (8-78); Potassium 5.3 mmol/L (3.5-5.1); Protein, Total 7.3 g/dL (6.0-8.3); Sodium 131 mmol/L (136-145)
[2019-04-19] MEDS ORDERED: predniSONE 20 MG TAB ONE ×2 (19:34)
== END 2019-04-19 21:08 | disposition home or self-care (01) ==
LOC: ERS 15:31
DX: J44.1 Chronic obstructive pulmonary disease with (acute) exacerbation (principal); K40.90 Unilateral inguinal hernia, without obstruction or gangrene, not specified as recurrent; I10 Essential (primary) hypertension; I48.91 Unspecified atrial fibrillation; F32.9 Major depressive disorder, single episode, unspecified; F17.210 Nicotine dependence, cigarettes, uncomplicated
CPT/HCPCS: 36415; 71045; 80053; 83605; 83690; 83880; 84484; 85025; 87040; 93005; 94640; 94760; J7512; J7620

== ENCOUNTER 2019-05-02 13:09 | Inpatient (IN) | payer MEDICARE, OTHER, MEDICAID ==
[2019-05-02 14:22] LABS: Bacteria/HPF 2+ HPF (None Seen); Bilirubin Negative (Negative); Blood, Urine 1+ (Negative); Clarity Clear (Clear); Glucose, Urine (Dipstick) Normal (Negative); Leukocyte 500 Leu/uL (Negative); Nitrite 2+ (Negative); Protein, Urine (Dipstick) Negative (Neg-Trace); Squamous Epithelial None Seen HPF (0-3); Urobilinogen Normal mg/dL (Less than 2); WBC/HPF 21-50 HPF (0-3)
[2019-05-02 15:10] LABS: #Basophils 0.1 thou/uL (0.0-0.2); #Eosinphils 0.5 thou/uL (0.0-0.7); #Lymphocytes 1.5 thou/uL (1.20-3.40); #Monocytes 0.6 thou/uL (0.11-0.59); #Neutrophils 16.5 thou/uL (1.40-6.50); %Basophils 0.5 % (0.0-1.0); %Eosinophils 2.8 % (0.0-10.0); %Lymphocytes 7.8 % (21.0-51.0); %Neutrophils 85.9 % (42.0-75.0); Hemoglobin 12.2 g/dL (12.0-16.0); Mean Corpuscular HGB CONC 32.5 g/dL (32.0-36.0); Mean Corpuscular Hemoglobin 29.9 pg (27.0-31.0); Mean Corpuscular Volume 91.9 fL (78.0-98.0); Mean Platelet Volume 6.2 fL (7.4-10.4); Platelet Count 398 thou/uL (130-400); RBC Distribution Width 15.2 % (11.5-14.5); Red Blood Cell (RBC) Count 4.09 mill/uL (4.20-5.40); White Blood Cell (WBC) Count 19.2 thou/uL (4.8-10.8)
[2019-05-02] MEDS ORDERED: cefTRIAXone\\ROCEPHIN 1 GM VIAL ONE (15:10)
[2019-05-02 15:31] LABS: ALT (SGPT) 10 U/L (8-55); AST (SGOT) 12 U/L (5-34); Albumin 3.7 g/dL (3.4-4.8); Alkaline Phosphatase 115 U/L (40-110); Anion Gap 11 mmol/L (10-20); BUN (Urea Nitrogen) 24 mg/dL (9.8-20.1); Bilirubin, Total 0.5 mg/dL (0.2-1.2); Calc. Creatinine Clearance 0 mL/min (70-130); Calcium 10.2 mg/dL (7.8-10.44); Carbon Dioxide 26 mmol/L (23-31); Chloride 102 mmol/L (98-107); Estimated GFR-MDRD 47; Globulin 2.5 g/dL (2.4-3.5); Glucose 80 mg/dL (83-110); Potassium 4.8 mmol/L (3.5-5.1); Protein, Total 6.2 g/dL (6.0-8.3); Sodium 134 mmol/L (136-145)
--- NOTE | 2019-05-02 15:39 | ULT ---
At pelvic sonogram transabdominal and transvaginal imaging HISTORY: Pelvic pain. FINDINGS: Urinary bladder is decompressed. No free fluid is apparent within the pelvis. Uterus is atr ophied with a heterogeneous echotexture. 5.9 cm length. No endometrial thickening is evident. Right ovary shows no focal abnormalities. Left ovary not visualized. No fluid collections or masses evident. IMPRESSION: No abnormalities are demonstrated.
[2019-05-02] MEDS ORDERED: Ondansetron ODT 4 MG TAB SL PRN (18:08)
[2019-05-02] MEDS ORDERED: Ondansetron PF 4 MG/2 ML Vial IVP PRN (18:08)
[2019-05-02] MEDS ORDERED: Acetaminophen 325 MG TAB PO PRN (18:08)
[2019-05-02] MEDS ORDERED: Sodium Chloride 0.9% 1,000 ML IV SCH (18:15)
[2019-05-02 18:24] VITALS: BMI 18.0
[2019-05-02] MEDS ORDERED: ADVIL PM PO PRN (18:50)
[2019-05-02] MEDS ORDERED: TYLENOL WITH CODEINE PO SCH (21:00)
[2019-05-02] MEDS: Acetaminophen/Codeine 30-300mg Tablet PO PRN (21:13)
[2019-05-02] MEDS: guaiFENesin ER 600 MG TAB PO SCH (21:14)
[2019-05-02] MEDS: Atorvastatin Calcium 40 MG TAB PO SCH (21:14)
[2019-05-02] MEDS: Trospium 20 MG TAB PO SCH (21:14)
[2019-05-02] MEDS: levETIRAcetam 500 MG TAB PO SCH (21:14)
[2019-05-02] MEDS: diphenhydrAMINE 25 MG CAP PO SCH (21:14)
--- NOTE | 2019-05-02 21:15 | HP ---
REASON FOR ADMISSION/CHIEF COMPLAINT: Vaginal bleeding. HISTORY OF PRESENT ILLNESS: Ms. Wilkerson is an 84-year-old female with past medical history of COPD, hypertension, urinary incontinence, came because of sudden acute onset of vaginal bleeding last night. The patient had cramping of her abdomen for a few days prior to that and noticed bleeding. She had this problem few years ago, but could not see the clinical cytogenetics director back. The patient was recently seen in the ER, found to have COPD exacerbation, was given steroids and antibiotics, which she just finished a week ago. The patient did not have any chest pain or shortness of breath. No nausea or vomiting. No fever. In the ER, the patient was evaluated and found to have urinary tract infection as well, so the patient is admitted for further evaluation of vaginal bleeding. PAST MEDICAL HISTORY: 1. Hypertension. 2. End-stage COPD. 3. Hyperlipidemia. 4. Chronic back pain. 5. Anxiety disorder. 6. Seizure disorder. 7. Urinary incontinence. PAST SURGICAL HISTORY: Status post . CURRENT MEDICATIONS: The patient is on: 1. Diltiazem 30 mg t.i.d. 2. Lipitor 40 mg at bedtime. 3. Lexapro 20 mg daily. 4. Mucinex 600 b.i.d. 5. Imdur 30 mg daily. 6. Keppra 500 b.i.d. 7. Claritin 10 mg daily. 8. Losartan 100 mg daily. 9. Myrbetriq 25 mg daily. 10. Movantik 25 mg daily. 11. Tylenol No.4 q.i.d. p.r.n. ALLERGIES: 1. AZITHROMYCIN. 2. LEVOFLOXACIN. 3. PENICILLIN. 4. SULFA. FAMILY HISTORY: Nothing contributory. SOCIAL HISTORY: The patient lives with family. No history of alcohol. Continues to smoke half a pack a day. REVIEW OF SYSTEMS: CARDIOVASCULAR: No chest pain. No shortness of breath. RESPIRATORY: No fever or cough. GASTROINTESTINAL: No nausea or vomiting. Has abdominal pain, cramping. CENTRAL NERVOUS SYSTEM: No headache. No dizziness. GENITOURINARY: Has vaginal bleeding. PHYSICAL EXAMINATION: GENERAL: The patient is alert, awake, oriented x3. VITAL SIGNS: Temperature 98, pulse 73, respirations 20, blood pressure 120/60. HEENT: Head is normocephalic, atraumatic. Pupils equal and reactive. Nasopharynx is pale and dry. NECK: Supple. No JVD. LUNGS: Breath sounds diminished bilaterally. No rales. No rhonchi. HEART: S1 and S2, regular. ABDOMEN: Soft. No distention. No tenderness. No organomegaly. Bowel sounds present. RECTAL: Deferred. CENTRAL NERVOUS SYSTEM: Nonfocal. LABORATORY DATA: CBC shows WBC 19, hemoglobin 12, hematocrit 37, platelets 398. Metabolic panel; sodium 134, potassium 4.8, chloride 102, CO2 26, urine nitrogen 24, creatinine 1.1, glucose 80. Urinalysis revealed wbc 21-50, bacteria 2+. Ultrasound of the pelvis unremarkable. ASSESSMENT: 1. Vaginal bleeding. 2. Urinary tract infection. 3. Chronic obstructive pulmonary disease. 4. Hypertension. 5. Urinary incontinence. 6. Chronic pain. 7. Seizure disorder. PLAN: 1. Vital signs q.4 hours. 2. Activity, as tolerated. 3. Allergies, multiple. 4. Hep-Lock. 5. Rocephin 2 g IV piggyback daily. 6. INTERPRETIVE PROGRAM COORDINATOR consult for vaginal bleeding. 7. Leukocytosis. 8. Continue her home medications. 9. We will repeat labs. Job ID: [id number]
[2019-05-03] MEDS: Acetaminophen/Codeine 30-300mg Tablet PO PRN ×3 (05:05→21:07)
[2019-05-03 06:16] LABS: #Basophils 0.1 thou/uL (0.0-0.2); #Eosinphils 0.2 thou/uL (0.0-0.7); #Lymphocytes 1.1 thou/uL (1.20-3.40); #Monocytes 0.9 thou/uL (0.11-0.59); #Neutrophils 11.8 thou/uL (1.40-6.50); %Basophils 0.5 % (0.0-1.0); %Eosinophils 1.1 % (0.0-10.0); %Lymphocytes 7.8 % (21.0-51.0); %Monocytes 6.2 % (0.0-10.0); %Neutrophils 84.4 % (42.0-75.0); Hemoglobin 11.3 g/dL (12.0-16.0); Mean Corpuscular HGB CONC 32.1 g/dL (32.0-36.0); Mean Corpuscular Hemoglobin 29.2 pg (27.0-31.0); Mean Platelet Volume 6.6 fL (7.4-10.4); Platelet Count 319 thou/uL (130-400); RBC Distribution Width 15.1 % (11.5-14.5); Red Blood Cell (RBC) Count 3.86 mill/uL (4.20-5.40)
[2019-05-03 06:27] LABS: ALT (SGPT) Less than 7 U/L (8-55); AST (SGOT) 12 U/L (5-34); Albumin 3.4 g/dL (3.4-4.8); Alkaline Phosphatase 108 U/L (40-110); Anion Gap 13 mmol/L (10-20); BUN (Urea Nitrogen) 20 mg/dL (9.8-20.1); Bilirubin, Total 0.4 mg/dL (0.2-1.2); Calc. Creatinine Clearance 41 mL/min (70-130); Calcium 10.1 mg/dL (7.8-10.44); Carbon Dioxide 23 mmol/L (23-31); Chloride 101 mmol/L (98-107); Estimated GFR-MDRD 62; Globulin 2.5 g/dL (2.4-3.5); Glucose 93 mg/dL (83-110); Potassium 4.7 mmol/L (3.5-5.1); Protein, Total 5.9 g/dL (6.0-8.3); Sodium 132 mmol/L (136-145)
[2019-05-03] MEDS: Loratadine 10 MG TAB PO SCH (08:36)
[2019-05-03] MEDS: Trospium 20 MG TAB PO SCH ×2 (08:36→21:01)
[2019-05-03] MEDS: guaiFENesin ER 600 MG TAB PO SCH ×2 (08:36→21:01)
[2019-05-03] MEDS: Escitalopram Oxalate 20 mg Tablet PO SCH (08:36)
[2019-05-03] MEDS: Losartan 25 MG TAB PO SCH (08:36)
[2019-05-03] MEDS: Isosorbide Mononitrate (ER) 30 MG TAB PO SCH (08:36)
[2019-05-03] MEDS: levETIRAcetam 500 MG TAB PO SCH ×2 (08:36→21:01)
--- NOTE | 2019-05-03 12:54 | CON ---
DATE OF CONSULTATION: 05/03/2019 REQUESTING PHYSICIAN: Dr. Polk. EVALUATING PHYSICIAN: Manuel Carrion MD. REASON FOR CONSULTATION: Suspected vaginal bleeding. HISTORY OF PRESENT ILLNESS: Ms. Wilkerson is an 84-year-old white female, who was admitted overnight with a complaint of vaginal bleeding. She states that she has noticed this over the last 24 to 48 hours. She states that she had a similar problem years ago, but did not see a canal lock tender chief operator. Consultation was requested for evaluation. PAST MEDICAL HISTORY: Includes hypertension, COPD, hyperlipidemia, seizure disorder, and anxiety. PAST SURGICAL HISTORY: History of section. CURRENT MEDICATIONS: Multiple and are listed in her chart. ALLERGIES: AZITHROMYCIN, LEVAQUIN, PENICILLIN, AND SULFA. FAMILY HISTORY: Denies gynecologic malignancy. SOCIAL HISTORY: She denies alcohol use, but smokes half a package of cigarettes per day. REVIEW OF SYSTEMS: Denies pelvic pain. She does believe the bleeding is coming from the vagina. She also reports dark colored stools over the last several weeks. PHYSICAL EXAMINATION: VITAL SIGNS: Blood pressure 133/67, pulse 77, respirations 22, O2 saturation 96 % on nasal cannula, and temperature is 98.2. GENERAL: She is pleasant and is easily able to be communicated with. ABDOMEN: Soft and nontender. PELVIC: Externally, there are no lesions. Speculum exam of the vagina shows no blood or significant discharge. The cervix is small and shows no lesions. Bimanual exam shows the uterus to be small and there are no adnexal masses. Rectovaginal exam confirms and there is no gross blood on my glove with rectal exam. IMAGING: Ultrasound of the pelvis done yesterday afternoon demonstrates a small uterus with an endometrial thickness of 0.2 cm. ASSESSMENT: 1. No evidence of postmenopausal bleeding. 2. History suspicious for rectal bleeding. PLAN: At this point, I would recommend GI consultation for potential GI source. We will sign off at this time. Job ID: [id number] MTDD
[2019-05-03] MEDS: cefTRIAXone\\ROCEPHIN 2 GM in Sodium Chloride 0.9% 100 ML IVPB SCH (15:48)
[2019-05-03] MEDS ORDERED: GoLYTELY 4,000 ml Bottle PO SCH (17:30)
--- NOTE | 2019-05-03 19:03 | CON ---
DATE OF CONSULTATION: 05/03/2019 CHIEF COMPLAINT: Blood in the toilet. HISTORY OF PRESENT ILLNESS: Ms. Wilkerson is an 84-year-old woman who two evenings ago sat down on the toilet and passed a significant amount of red blood and turn the water red. She thought this was coming from the vagina. She had passed black mushy stools earlier in the day and normally passes black mushy stools 2 or 3 times a day at baseline for months. She has a history of chronic opioid induced constipation and takes Movantik daily and MiraLAX daily. She does get some urgency and sometimes trouble making it to the bathroom on time. She has had no nausea or vomiting or abdominal pain. No other visible red blood in the stool. She was hospitalized back in 2018 with fecal impaction at that time and required disimpaction. Her last colonoscopy was in [address] Omalley, which was normal. PAST MEDICAL HISTORY: Hypertension, COPD, hyperlipidemia, chronic back pain, seizure disorder, and hyponatremia. PAST SURGICAL HISTORY: and colonoscopy. FAMILY HISTORY: Negative for GI malignancies. SOCIAL HISTORY: She smokes half a pack a day still. No alcohol. No drugs. ALLERGIES: MULTIPLE INCLUDED AZITHROMYCIN, LEVOFLOXACIN, PENICILLIN, AND SULFA. CURRENT MEDICATIONS: Include: 1. Tylenol No. 3. 2. Ceftriaxone. 3. Atorvastatin. 4. Diltiazem. 5. Celexa. 6. Lexapro. 7. Isosorbide mononitrate. 8. Levetiracetam. 9. Loratadine. 10. Losartan. 11. Mirabegron. 12. Trospium. REVIEW OF SYSTEMS: Negative x10 systems reviewed except as stated in history of present illness. PHYSICAL EXAMINATION: VITAL SIGNS: Temperature 98.2, pulse 77, and blood pressure 133/67. GENERAL: She is in no acute distress. Alert and oriented x3. HEENT: Eyes, have no scleral icterus. Oropharynx is clear without lesions. No cervical or supraclavicular lymphadenopathy. LUNGS: Clear to auscultation bilaterally. HEART: Regular rate and rhythm without murmur. ABDOMEN: Soft, nontender, and nondistended. Bowel sounds are present. EXTREMITIES: No lower extremity edema. RECTAL: Reveals a scant amount of light brown stool in the rectal vault and no fecal impaction at this time. EXTREMITIES: No lower extremity edema. IMPRESSION: 1. Hematochezia. She passed blood into the toilet and is unclear if this came from the vagina or from the rectum. She has had no further evidence of overt gastrointestinal bleeding. This could have been hemorrhoidal. She had gynecologic exam today by Dr. Carrion and no evidence of uterine or vaginal bleeding was seen. Her last colonoscopy was in [address] Omalley and was normal. 2. Chronic opioid induced constipation, which she has been on Movantik and MiraLAX. She has had loose stools 2 or 3 times per day sometimes with urgency and possibly loss of continence. It would be reasonable to back her MiraLAX to one half dose daily instead. RECOMMENDATIONS: 1. Colonoscopy. We will plan a clear liquid diet now and bowel prep tomorrow for colonoscopy on . She has had regular diet all day today. 2. Continue Movantik. 3. She should be able to reduce her MiraLAX to one half dose daily at baseline and then this can be adjusted based on response as an outpatient. Job ID: [id number]
[2019-05-03] MEDS: diphenhydrAMINE 25 MG CAP PO SCH (21:01)
[2019-05-03] MEDS: Atorvastatin Calcium 40 MG TAB PO SCH (21:01)
[2019-05-04] MEDS: Trospium 20 MG TAB PO SCH ×2 (08:20→19:49)
[2019-05-04] MEDS: Escitalopram Oxalate 20 mg Tablet PO SCH (08:20)
[2019-05-04] MEDS: Losartan 25 MG TAB PO SCH (08:20)
[2019-05-04] MEDS: levETIRAcetam 500 MG TAB PO SCH ×2 (08:20→19:50)
[2019-05-04] MEDS: Loratadine 10 MG TAB PO SCH (08:20)
[2019-05-04] MEDS: guaiFENesin ER 600 MG TAB PO SCH ×2 (08:20→19:50)
[2019-05-04] MEDS: Isosorbide Mononitrate (ER) 30 MG TAB PO SCH (08:20)
[2019-05-04] MEDS: Acetaminophen/Codeine 30-300mg Tablet PO PRN ×2 (08:26→21:49)
[2019-05-04] MEDS ORDERED: GoLYTELY 4,000 ml Bottle PO SCH (13:00)
[2019-05-04] MEDS: cefTRIAXone\\ROCEPHIN 2 GM in Sodium Chloride 0.9% 100 ML IVPB SCH (15:45)
--- NOTE | 2019-05-04 16:11 | PQF ---
HOLLAND GUZMAN, SHAKEEL Galicia MD [phone] [id number] CLINICAL DOCUMENTATION IMPROVEMENT CLARIFICATION FORM: ICD-10 Updated PLEASE DO AN ADDENDUM TO THE PROGRESS NOTE WITH ANY DOCUMENTATION UPDATES OR ADDITIONS AND CARRY THROUGH TO DC SUMMARY. THANK YOU. Date: 05/04/2019 ATTN: DR. Aba ZENG Please exercise your independent, professional judgment in responding to the clarification form. Clinical indicators are provided on the bottom of this form for your review. Please check appropriate box(s): [y ] Protein Calorie Malnutrition: [ ] Mild [ y] Moderate [ ] Severe [ ] Other Malnutrition (please specify) __ [ ] Cachexia [ ] Other diagnosis [ ] Unable to determine In addition, please specify: Present on Admission (POA): [y ] Yes [ ] No [ ] Unable to determine CLINICAL INDICATORS - SIGNS / SYMPTOMS / LABS / RESULTS AND LOCATION IN MR 05/01 H&P ([facility]) :THE PATIENT HAS CRAMPING OF HER ABDOMEN FOR A FEW DAYS PRIOR TO THAT AND NOTICED BLEEDING. 05/02 ASSESSMENT -- BMI 18.0 -- PER PT, NEEDING TO HAVE LOWER TEETH REMOVED SOON, SO SHE STRUGGLES TO CHEW HARDER FOODS. -- EVIDENCE OF MODERATE ORBITAL AND BUCCAL FAT LOSS, MODERATE DORSAL INTEROSSEOUS MUSCLE WASTING SUGGESTING SEVERE MALNUTRITION. RISK: ADVANCED AGE (84), HX COPD, DX UTI (H&P/[facility]) 05/01 TREATMENTS: DIETARY CONSULT (05/02) CHET CHU Moderate Malnutrition (in acute illness) Energy Intake: <75% of estimated energy requirement for > 7 days Weight Loss: 1-2%/1 week; 5%/ 1 month; 7.5%/3 months Other: mild body fat loss; mild muscle mass loss; mild fluid accumulation; Severe Malnutrition (in acute illness) Energy Intake: < 50% of estimated energy requirement for > 5 days Weight Loss: >1-2%/1 week; >5%/1 month; >7.5%/3 months Other: moderate body fat loss; moderate muscle mass loss; moderate- severe fluid accumulation; measurably reduced quality assurance group leader strength Moderate Malnutrition (in chronic illness) Energy Intake: <75% of estimated energy requirement for >1 month Weight Loss: 5%/1 month; 7.5%/3 months; 10%/6 months; 20%/1 year Other: mild body fat loss; mild muscle mass loss; mild fluid accumulation Severe Malnutrition (in chronic illness) Energy Intake: <75% of estimated energy requirement for >1 month Weight Loss: >5%/1 month; >7.5%/3 months; >10%/6 months; >20%/1 year Other: severe body fat loss; severe muscle mass loss; severe fluid accumulation ; measurably reduced quality assurance group leader strength THANK YOU! JEREMY (This form is maintained as a part of the permanent medical record) 2015 [employer] All Rights Reserved [email or web address] [phone] MTDD
--- NOTE | 2019-05-04 17:33 | PRG ---
DATE OF SERVICE: 05/04/2019 SUBJECTIVE: Ms. Wilkerson is working on drinking her bowel prep today. She has had no bowel movement so far, it is not quite alf through it yet. OBJECTIVE: VITAL SIGNS: Temperature is 98.1, pulse 88, blood pressure 154/74. GENERAL: She is in no acute distress. Alert and oriented x3. LUNGS: Clear to auscultation bilaterally. HEART: Regular rate and rhythm without murmur. ABDOMEN: Soft, nontender, mildly distended as she has been taking a bowel prep. Bowel sounds are present. EXTREMITIES: No lower extremity edema. IMPRESSION: 1. Hematochezia. 2. Opioid-induced constipation. RECOMMENDATIONS: 1. Colonoscopy tomorrow. 2. Movantik. 3. She has had runny stools lately, and after the colonoscopy, if she restarts her MiraLAX, it can be restarted at a lower dose. Job ID: [id number]
[2019-05-04] MEDS: methylPREDNISolone Sod Succ 40 MG VIAL IVP SCH ×3 (19:46→23:56)
[2019-05-04] MEDS: diphenhydrAMINE 25 MG CAP PO SCH (19:49)
[2019-05-04] MEDS: Atorvastatin Calcium 40 MG TAB PO SCH (19:50)
[2019-05-04] MEDS: Guaifenesin DM 100-10/5 ML UDCUP PO SCH (19:50)
[2019-05-05] MEDS: methylPREDNISolone Sod Succ 40 MG VIAL IVP SCH ×4 (06:04→23:38)
[2019-05-05] MEDS ORDERED: Ketamine 50 MG/ML (10ML VIAL) ONE (08:31)
[2019-05-05] MEDS: Guaifenesin DM 100-10/5 ML UDCUP PO SCH ×4 (10:48→20:09)
[2019-05-05] MEDS: Escitalopram Oxalate 20 mg Tablet PO SCH (10:49)
[2019-05-05] MEDS: Trospium 20 MG TAB PO SCH ×2 (10:49→20:09)
[2019-05-05] MEDS: Isosorbide Mononitrate (ER) 30 MG TAB PO SCH (10:49)
[2019-05-05] MEDS: levETIRAcetam 500 MG TAB PO SCH ×2 (10:49→20:09)
[2019-05-05] MEDS: Loratadine 10 MG TAB PO SCH (10:49)
[2019-05-05] MEDS: guaiFENesin ER 600 MG TAB PO SCH ×2 (10:49→20:08)
[2019-05-05] MEDS ORDERED: Glycopyrrolate 0.2 MG/ML 5 ML SYRINGE ONE ×2 (10:53→10:56)
[2019-05-05] MEDS ORDERED: Esmolol 100 MG/10 ML VIAL ONE ×2 (10:55→10:56)
[2019-05-05] MEDS ORDERED: PROPOFOL 200 MG/20 ML VIAL ONE (10:56)
--- NOTE | 2019-05-05 11:16 | OP ---
DATE OF PROCEDURE: 05/05/2019 PROCEDURE PERFORMED: Colonoscopy with polypectomy, incomplete colonoscopy. INDICATION: hematochezia. DESCRIPTION OF PROCEDURE: After the risks and benefits of the procedure were explained to the patient including risks of bleeding, infection, perforation, reactions to anesthesia, aspiration and/or pain, informed consent was obtained. The patient was then taken to the endoscopy suite, where deep sedation was administered via propofol and anesthesia support. Once adequate sedation was achieved, a digital rectal examination was performed followed by introduction of the standard colonoscope, which was then advanced to the distal ascending colon with further progress impeded due to significant tortuosity of the colon, looping of the scope, and diverticular disease in the left colon that was not amenable to abdominal pressure and reduction of the scope to facilitate passage of the scope. The quality of the prep was fair. The patient tolerated the procedure well with no immediate perioperative complications. Upon conclusion of the procedure, all equipment was removed from the patient and she was transferred to PACU in satisfactory condition. FINDINGS: Digital rectal exam; medium to large external hemorrhoids were seen on external examination, one of which had a small blood clot contained within the hemorrhoid itself. Otherwise, normal sphincter tone and no masses palpated. Colon findings: Initially the colon had a significant amount of retained semi- solid liquid stool that was amenable to aggressive irrigation and suctioning and converted to a good prep with adequate visualization. However, the colon exhibited significant tortuosity and dilation of the colon and diverticular disease on the left colon making it difficult to achieve cecal intubation despite reduction of the colonoscope and application of abdominal pressure, cecal intubation could not be achieved. The maximum extent for progress was approximately the distal ascending colon of the mucosa seen, scattered diverticula were seen in the transverse, descending, and sigmoid colon with a higher degree of concentration in the sigmoid colon; however, there was no evidence of surrounding mucosal erythema, colonic narrowing, or evidence of active/recent bleeding from any of the diverticula. Otherwise, normal-appearing mucosa was seen in the distal ascending and transverse colons. In the mid descending colon, an 8 mm polyp was seen and completely removed with snare cautery polypectomy; however, the polyp was unable to be retrieved. Normal-appearing mucosa was then seen in the sigmoid colon and rectum with non-bleeding internal hemorrhoids seen on rectal retroflexion. IMPRESSION: 1. Incomplete colonoscopy due to significant tortuosity of the colon, looping of the colonoscope, and severe left-sided diverticular disease with maximum extent of progression to the distal ascending colon. 2. Severe diverticular disease seen in the transverse, descending, and sigmoid colon. 3. 8 mm descending colon polyp status post snare cautery polypectomy, but unable to be retrieved. 4. Small internal hemorrhoids. 5. Medium to large inch external hemorrhoids with evidence of recent bleed (more likely source of the patient's recent hematochezia). RECOMMENDATIONS: 1. Would continue to trend the patient's hemoglobin and hematocrit and transfuse as necessary to maintain an hemoglobin and hematocrit of 7/21. 2. Continue to monitor clinically for signs of active GI bleeding. 3. Recommend a higher fiber diet given the presence of internal and external hemorrhoids in addition to diverticular disease. 4. We will consider obtaining an air-contrast barium enema for evaluation of the right colon and ruling out any possible neoplasm in the region of the colon. 5. Would recommend a repeat colonoscopy based on the polyp removed today within the next 3 years. Given the patient's relatively stable hemoglobin and hematocrit, lack of iron deficiency anemia findings on labs and relatively negative colonoscopy today. The patient could be potentially discharged to home with air-contrast barium enema performed as an outpatient for completion colonoscopy for screening purposes. We will sign off at this time. Please call with any questions. Job ID: [id number] [facility]ITALJeronimo
[2019-05-05] MEDS: Losartan 25 MG TAB PO SCH (12:34)
[2019-05-05] MEDS: cefTRIAXone\\ROCEPHIN 2 GM in Sodium Chloride 0.9% 100 ML IVPB SCH (15:32)
[2019-05-05] MEDS: diphenhydrAMINE 25 MG CAP PO SCH (20:09)
[2019-05-05] MEDS: Atorvastatin Calcium 40 MG TAB PO SCH (20:09)
[2019-05-06 05:23] LABS: #Lymphocytes 0.8 thou/uL (1.20-3.40); #Monocytes 0.1 thou/uL (0.11-0.59); #Neutrophils 14.6 thou/uL (1.40-6.50); %Basophils 0.2 % (0.0-1.0); %Eosinophils 0.1 % (0.0-10.0); %Lymphocytes 5.2 % (21.0-51.0); %Monocytes 0.9 % (0.0-10.0); %Neutrophils 93.6 % (42.0-75.0); Hemoglobin 10.9 g/dL (12.0-16.0); Mean Corpuscular HGB CONC 32.2 g/dL (32.0-36.0); Mean Corpuscular Hemoglobin 28.9 pg (27.0-31.0); Mean Corpuscular Volume 89.7 fL (78.0-98.0); Mean Platelet Volume 6.9 fL (7.4-10.4); Platelet Count 256 thou/uL (130-400); RBC Distribution Width 14.9 % (11.5-14.5); Red Blood Cell (RBC) Count 3.78 mill/uL (4.20-5.40); White Blood Cell (WBC) Count 15.6 thou/uL (4.8-10.8)
[2019-05-06 05:44] LABS: Anion Gap 10 mmol/L (10-20); BUN (Urea Nitrogen) 24 mg/dL (9.8-20.1); Calc. Creatinine Clearance 41 mL/min (70-130); Calcium 10.2 mg/dL (7.8-10.44); Carbon Dioxide 31 mmol/L (23-31); Chloride 96 mmol/L (98-107); Estimated GFR-MDRD 62; Glucose 177 mg/dL (83-110); Potassium 3.9 mmol/L (3.5-5.1); Sodium 133 mmol/L (136-145)
[2019-05-06] MEDS: methylPREDNISolone Sod Succ 40 MG VIAL IVP SCH ×4 (05:49→23:27)
[2019-05-06] MEDS: Guaifenesin DM 100-10/5 ML UDCUP PO SCH ×4 (08:46→19:57)
[2019-05-06] MEDS: levETIRAcetam 500 MG TAB PO SCH ×2 (08:46→19:58)
[2019-05-06] MEDS: guaiFENesin ER 600 MG TAB PO SCH ×2 (08:46→19:57)
[2019-05-06] MEDS: Escitalopram Oxalate 20 mg Tablet PO SCH (08:46)
[2019-05-06] MEDS: Loratadine 10 MG TAB PO SCH (08:46)
[2019-05-06] MEDS: Trospium 20 MG TAB PO SCH ×2 (08:46→19:58)
[2019-05-06] MEDS: Isosorbide Mononitrate (ER) 30 MG TAB PO SCH (08:46)
[2019-05-06] MEDS: Losartan 25 MG TAB PO SCH (08:54)
[2019-05-06] MEDS: cefTRIAXone\\ROCEPHIN 2 GM in Sodium Chloride 0.9% 100 ML IVPB SCH (16:17)
[2019-05-06] MEDS: Atorvastatin Calcium 40 MG TAB PO SCH (19:57)
[2019-05-06] MEDS: diphenhydrAMINE 25 MG CAP PO SCH (19:57)
[2019-05-06] MEDS: Acetaminophen/Codeine 30-300mg Tablet PO PRN (23:21)
[2019-05-07] MEDS: methylPREDNISolone Sod Succ 40 MG VIAL IVP SCH (05:55)
[2019-05-07] MEDS: Guaifenesin DM 100-10/5 ML UDCUP PO SCH ×4 (07:49→22:00)
[2019-05-07] MEDS: Isosorbide Mononitrate (ER) 30 MG TAB PO SCH (07:49)
[2019-05-07] MEDS: guaiFENesin ER 600 MG TAB PO SCH ×2 (07:49→22:01)
[2019-05-07] MEDS: levETIRAcetam 500 MG TAB PO SCH ×2 (07:49→22:01)
[2019-05-07] MEDS: Loratadine 10 MG TAB PO SCH (07:49)
[2019-05-07] MEDS: Trospium 20 MG TAB PO SCH ×2 (07:49→22:01)
[2019-05-07] MEDS: Losartan 25 MG TAB PO SCH (07:50)
[2019-05-07] MEDS: Escitalopram Oxalate 20 mg Tablet PO SCH (07:50)
[2019-05-07] MEDS: predniSONE 20 MG TAB PO SCH (07:50)
[2019-05-07] MEDS: Acetaminophen/Codeine 30-300mg Tablet PO PRN ×2 (07:54→17:41)
[2019-05-07] MEDS: cefTRIAXone\\ROCEPHIN 2 GM in Sodium Chloride 0.9% 100 ML IVPB SCH (16:21)
[2019-05-07] MEDS: Atorvastatin Calcium 40 MG TAB PO SCH (22:01)
[2019-05-07] MEDS: diphenhydrAMINE 25 MG CAP PO SCH (22:01)
[2019-05-08] MEDS: Guaifenesin DM 100-10/5 ML UDCUP PO SCH (09:45)
[2019-05-08] MEDS: Losartan 25 MG TAB PO SCH (09:45)
[2019-05-08] MEDS: guaiFENesin ER 600 MG TAB PO SCH (09:46)
[2019-05-08] MEDS: Isosorbide Mononitrate (ER) 30 MG TAB PO SCH (09:47)
[2019-05-08] MEDS: Loratadine 10 MG TAB PO SCH (09:48)
[2019-05-08] MEDS: predniSONE 20 MG TAB PO SCH (09:48)
[2019-05-08] MEDS: levETIRAcetam 500 MG TAB PO SCH (09:53)
[2019-05-08] MEDS: Trospium 20 MG TAB PO SCH (09:58)
[2019-05-08] MEDS: Escitalopram Oxalate 20 mg Tablet PO SCH (09:59)
[2019-05-08 18:15] VITALS: BP 143/82; TEMP 97.5
--- NOTE | 2019-05-09 08:08 | PQF ---
SAP Logger Driving Horses Crystal Reports Winform Viewer HOLLAND GUZMAN JASMIN ELVIN [id number] [id number] CLINICAL DOCUMENTATION CLARIFICATION FORM: POST DISCHARGE Addendum to original discharge summary date: ____ Late entry note date: __ DATE: 05/09/19 ATTN: Elvin Newton Please exercise your independent, professional judgment in responding to the clarification form. Clinical indicators are provided on the bottom of this form for your review Can you please further clarify the etiology of hematochezia? Please check appropriate box(s): [ ] Internal Hemorrhoids [ X ] External Hemorrhoids [ ] Diverticular Disease [ ] Opioid induced constipation [ ] Other diagnosis please specify [ ] Unable to determine As per the operative note dated 05/05/19, there were no intraluminal abnormalities that would contribute to her hematochezia. However, there were hemorrhoids with "evidence of recent bleed" making this the most likely etiology for her bleeding. In addition, please specify: Present on Admission (POA): [ X ] Yes [ ] No [ ] Unable to determine For continuity of documentation, please document condition throughout progress notes and discharge summary. Thank You. CLINICAL INDICATORS - SIGNS / SYMPTOMS / LABS ED Provide pg.3- UTI, GI Bleed leukocytosis H and P pg.1- vaginal bleeding Consult pg.2- no evidence of postmenopausal bleeding OP report pg.1- hematochezia OP Report pg.2- external hemorrhoids with evidence of recent bleed (more likely source of the patient's recent hematochezia Consult pg.2 Dr. Francois- this could have been hemorrhoidal RISK FACTORS 84 years old- H ad P pg.1 UTI- H and P pg.2 WBC 19H- H and P pg.2 Chronic opioid constipation- Consult Dr. Francois pg.1 Internal and external hemorrhoids- OP report pg.2 Diverticular disease- OP report pg.2 TREATMENTS: Urology Consult Dr. Carrion 05/02 Pelvic/transvag US Colonoscopy with polypectomy-OP report pg.[address] Alessandro Laurent- APR (This form is maintained as a part of the permanent medical record) 2014 [employer]. All Rights Reserved [email or web address]
--- NOTE | 2019-05-09 13:48 | DIS ---
DATE OF ADMISSION: 05/02/2019 DATE OF DISCHARGE: 05/08/2019 ADMITTING DIAGNOSES: 1. Vaginal bleeding. 2. Urinary tract infection. 3. Chronic obstructive pulmonary disease. 4. Hypertension. 5. Urine incontinence. 6. Chronic pain. 7. Seizure disorder. FINAL DIAGNOSES: 1. Gastrointestinal bleeding, status post colonoscopy, gastrointestinal bleeding possibly due to her hemorrhoids. 2. Anemia, stable. 3. Chronic obstructive pulmonary disease with acute exacerbation, improved. 4. Wwwbb-hl-rdfxbta respiratory failure, improved. 5. Urinary tract infection. 6. Hypertension. 7. Urinary incontinence. 8. Chronic pain. 9. Seizure disorder. BRIEF SUMMARY OF HOSPITAL COURSE: Ms. Wilkerson is an 84-year-old female with past medical history of COPD, hypertension, came because of sudden onset of vaginal bleeding. That is what the patient thought and the ER physician felt too.. A consultation was done with set up and lay out inspector. The patient wasseen by Dr. Carrion. He felt after examination, the patient does not have any vaginal bleeding, most likely patient has rectal bleeding. Her ultrasound of the abdomen was also normal. A GI consult was done. The patient was seen by Dr. Francois. He felt the patient possibly has hematochezia and chronic opioid-induced constipation, suggested colonoscopy. The patient was prepared and the patient underwent colonoscopy on the 04 of May. Colonoscopy revealed severe diverticular disease in the transverse, descending and sigmoid colon. Also there was a polyp in the descending colon. Also noticed a xjfobh-rm-dkzha size external hemorrhoids with evidence of recent bleed, which is probably likely source of the patient recent hematochezia. The patient was started on high fiber diet and monitored. Her H and H remained stable around 10.9. The patient was also in COPD exacerbation, chest wheezing and shortness of breath. She was started on nebulizer and continue nebulizer treatments, started on IV steroid and her shortness of breath improved. Her cough improved. The patient was started on diet and she has tolerated diet very well. In view of improvement, the patient is being discharged home. At the time of discharge, she was stable. Her vital signs stable. Lungs clear. Heart sounds regular. Abdomen is soft and nontender. Bowel sounds present. DISCHARGE MEDICATIONS: Include: 1. Tylenol with Codeine No. 4 t.i.d. 2. Movantik 25 mg daily. 3. Myrbetriq 25 mg daily. 4. Losartan 100 mg daily. 5. Enablex 15 mg daily. 6. Mucinex 600 b.i.d. 7. Lexapro 20 mg daily. 8. Diltiazem 30 mg t.i.d. 9. Benadryl 25 mg at bedtime. 10. Keppra 500 mg b.i.d. 11. Lipitor 40 mg daily. 12. Vasotec 10 mg daily. 13. Isosorbide mononitrate 60 mg daily. 14. DuoNeb q.i.d. 15. Prednisone tapering dose. The patient will come for followup in 2 weeks. Job ID: [id number] MTDD
== END 2019-05-08 12:47 | disposition home or self-care (01) | DRG 393 ==
LOC: ERS 13:09 → T4-B 16:00
PROVIDERS: ADMIT Internal Medicine; ATTEND Internal Medicine
PROC: 0DBM8ZZ Excision of Descending Colon, Via Natural or Artificial Opening Endoscopic (ICD-10-PCS; principal; 2019-05-05)
DX: K64.4 Residual hemorrhoidal skin tags (principal); J96.20 Acute and chronic respiratory failure, unspecified whether with hypoxia or hypercapnia; J44.1 Chronic obstructive pulmonary disease with (acute) exacerbation; K92.1 Melena; N39.0 Urinary tract infection, site not specified; K51.90 Ulcerative colitis, unspecified, without complications; E44.0 Moderate protein-calorie malnutrition; Z68.1 Body mass index [BMI] 19.9 or less, adult; K59.03 Drug induced constipation; I10 Essential (primary) hypertension; I48.91 Unspecified atrial fibrillation; M48.00 Spinal stenosis, site unspecified; R32 Unspecified urinary incontinence; F32.9 Major depressive disorder, single episode, unspecified; E78.5 Hyperlipidemia, unspecified; M54.5 Low back pain; G89.29 Other chronic pain; F41.9 Anxiety disorder, unspecified; G40.909 Epilepsy, unspecified, not intractable, without status epilepticus; F17.210 Nicotine dependence, cigarettes, uncomplicated; T40.2X5A Adverse effect of other opioids, initial encounter; K64.8 Other hemorrhoids; K57.30 Diverticulosis of large intestine without perforation or abscess without bleeding; K63.5 Polyp of colon; Z88.8 Allergy status to other drugs, medicaments and biological substances; Z88.0 Allergy status to penicillin; Z88.2 Allergy status to sulfonamides; Z88.1 Allergy status to other antibiotic agents; Z79.899 Other long term (current) drug therapy
CPT/HCPCS: 36415; 51701; 76856; 80048; 80053; 81003; 81015; 85025; 86850; 86900; 86901; 94640; 96365; 96366; A4353; J0696; J2704; J2920; J3490; J7512; J7620; Q0163

== ENCOUNTER 2019-06-01 12:54 | Emergency (ER) | payer MEDICARE, OTHER, MEDICAID ==
[2019-06-01 13:35] LABS: #Basophils 0.1 thou/uL (0.0-0.2); #Eosinphils 0.1 thou/uL (0.0-0.7); #Lymphocytes 2.4 thou/uL (1.20-3.40); #Monocytes 0.9 thou/uL (0.11-0.59); #Neutrophils 4.9 thou/uL (1.40-6.50); %Basophils 1.4 % (0.0-1.0); %Eosinophils 1.7 % (0.0-10.0); %Lymphocytes 27.9 % (21.0-51.0); %Monocytes 10.4 % (0.0-10.0); %Neutrophils 58.6 % (42.0-75.0); Hemoglobin 12.2 g/dL (12.0-16.0); Mean Corpuscular HGB CONC 32.4 g/dL (32.0-36.0); Mean Corpuscular Volume 92.4 fL (78.0-98.0); Mean Platelet Volume 6.5 fL (7.4-10.4); Platelet Count 310 thou/uL (130-400); RBC Distribution Width 15.2 % (11.5-14.5); Red Blood Cell (RBC) Count 4.07 mill/uL (4.20-5.40); White Blood Cell (WBC) Count 8.4 thou/uL (4.8-10.8)
[2019-06-01 13:58] LABS: ALT (SGPT) 11 U/L (8-55); AST (SGOT) 12 U/L (5-34); Albumin 3.9 g/dL (3.4-4.8); Alkaline Phosphatase 136 U/L (40-110); Anion Gap 10 mmol/L (10-20); BUN (Urea Nitrogen) 17 mg/dL (9.8-20.1); Bilirubin, Total 0.4 mg/dL (0.2-1.2); Calc. Creatinine Clearance 0 mL/min (70-130); Calcium 10.7 mg/dL (7.8-10.44); Carbon Dioxide 27 mmol/L (23-31); Chloride 97 mmol/L (98-107); Estimated GFR-MDRD 58; Globulin 2.3 g/dL (2.4-3.5); Glucose 91 mg/dL (83-110); Potassium 4.8 mmol/L (3.5-5.1); Protein, Total 6.2 g/dL (6.0-8.3); Sodium 129 mmol/L (136-145)
--- NOTE | 2019-06-01 14:22 | RAD ---
PORTABLE CHEST 1 VIEW: Date: 06/01/2019 Time: 1328 hours HISTORY: Cough. COMPARISON: 04/19/2019. FINDINGS: The heart size is borderline. The aorta is tortuous. The lungs are expanded without lobar consolidati on, pneumothoraces, or pleural effusions. Mild chronic changes are again seen. IMPRESSION: No radiographic evidence of acute cardiopulmonary process. POS: MZA
[2019-06-01] MEDS ORDERED: Cefepime 2 GM VIAL ONE (14:25)
[2019-06-01 15:42] LABS: Bilirubin Negative (Negative); Blood, Urine Trace (Negative); Clarity Turbid (Clear); Glucose, Urine (Dipstick) Normal (Negative); Leukocyte 500 Leu/uL (Negative); Nitrite 2+ (Negative); Protein, Urine (Dipstick) Negative (Neg-Trace); Squamous Epithelial 0-3 HPF (0-3); Urobilinogen Normal mg/dL (Less than 2); WBC/HPF Greater than 50 HPF (0-3)
[2019-06-01 15:43] LABS: Bacteria/HPF 2+ HPF (None Seen)
== END 2019-06-01 17:15 | disposition home or self-care (01) ==
LOC: ERS 12:54
DX: N39.0 Urinary tract infection, site not specified (principal); J44.9 Chronic obstructive pulmonary disease, unspecified; I10 Essential (primary) hypertension; G40.909 Epilepsy, unspecified, not intractable, without status epilepticus; I48.91 Unspecified atrial fibrillation; F32.9 Major depressive disorder, single episode, unspecified; F17.210 Nicotine dependence, cigarettes, uncomplicated; Z79.899 Other long term (current) drug therapy
CPT/HCPCS: 71045; 80053; 85025; 87077; 87086; 87186; 96365; 99283; J0692; 36415; 81003; 81015

== ENCOUNTER 2019-08-05 09:17 | Outpatient (CLI) | payer MEDICARE, OTHER, MEDICAID ==
[2019-08-05] MEDS ORDERED: Iopamidol 370 76% 100 ML VIAL ONE (09:28)
[2019-08-05] MEDS ORDERED: Iopamidol 370 76% 50 ML VIAL FS ONE (09:28)
--- NOTE | 2019-08-05 14:27 | CT ---
EXAM: CT ABDOMEN AND PELVIS HISTORY: Left-sided hernia. Pancreatic cyst. COMPARISON: None. Procedure: Multiple contiguous axial images were obtained and a CT of the abdomen and pelvis with IV contrast. C oronal reformats were performed. FINDINGS: Lower Chest: Presumed chronic changes in the lung bases. Calcified granuloma in the right lower lobe. Vessels: Scattered atherosclerosis of a nonaneurysmal aorta. Heart: Normal heart size. No significant pericardial fluid. Abdomen: Portal vein:Patent. Gallbladder: No calcified gallstones. Normal caliber wall. Liver: within normal limits. Pancreas: within normal limits. Spleen: within normal limits. Adrenals: within normal limits. Kidneys: Symmetric enhancement of the kidneys. No obstructive uropathy. There are bilateral subcentim eter renal cortical hypodensities which cannot be further characterize. There is an exophytic hypodensity in the mid left renal cortex measuring 1.8 x 2.0 cm, incompletely characterized. Peritoneum: No ascites or free air, no fluid collection. Bowel: Limited evaluation due to the lack of oral contrast administration. No evidence of bowel obstr uction. Ileocecal junction is unremarkable. Normal caliber appendix. Scattered fecal material in a nondistended, nondilated colon. Oral contrast opacifies the majority the colon, down to the level of the rectum. Mesentery and Retroperitoneum: No enlarged mesenteric or retroperitoneal lymph nodes. Abdominal Wall: within normal limits. Pelvis: Reproductive Organs: No acute abnormality. Pelvis: No mass, lymphadenopathy, free air or free fluid. There is a left inguinal hernia containing a segment of distal descending colon/proximal sigmoid colon which extends through the defect. No associated bowel incarceration or obstruction. The neck of the hernia measures approximately 2.4 cm. Urinary bladder: No mucosal abnormality. Bones: No acute abnormality. Incidental hemangioma at the L3 level. IMPRESSION: 1. Left inguinal hernia containing a segment of left colon extending through the defect. There is no associated bowel incarceration or obstruction. 2. Chronic changes in the lung bases. 3. Normal caliber appendix. 4. No evidence of a pancreatic cyst or pseudocyst. There are no inflammatory changes at the level of the pancreas. 5. Indeterminate left renal mass. Follow-up renal ultrasound is recommended. CODE T Transcribed Date/Time: 08/05/2019 2:53 PM
--- NOTE | 2019-08-05 14:31 | RAD ---
Radiograph abdomen one view: 08/05/2019 HISTORY: 84-year-old female with K 64.8 internal hemorrhoid and K 41.90, left femoral hernia without obstructi on or gangrene FINDINGS: There is a large amount of dense oral contrast material throughout nondilated small intestine and non dilated colon from CT performed several minutes ago. There is herniation of a partially contrast-filled loop of bowel into the left groin. This is probably a loop of large intestine. There is a large amount of bowel gas throughout the colon. No evidence of small bowel obstruction. IMPRESSION: Herniation of a loop of colon into left inguinal hernia.
== END 2019-08-05 09:18 | disposition home or self-care (01) ==
LOC: RAD 09:17
PROVIDERS: ATTEND Specialist
DX: K41.90 Unilateral femoral hernia, without obstruction or gangrene, not specified as recurrent (principal); K64.8 Other hemorrhoids; N28.89 Other specified disorders of kidney and ureter; K40.90 Unilateral inguinal hernia, without obstruction or gangrene, not specified as recurrent
CPT/HCPCS: 74018; 74177; 82565; Q9967

== ENCOUNTER 2019-08-16 08:45 | Outpatient (CLI) | payer MEDICARE, OTHER, MEDICAID ==
--- NOTE | 2019-08-16 11:00 | RAD ---
BARIUM ENEMA WITH AIR CONTRAST: HISTORY: Tortuous colon. Incomplete colonoscopy. COMPARISON: None. FINDINGS: Initial metal work duct installer radiograph demonstrates a nonspecific bowel gas pattern. Colon was opacified in a retrograde fashion. Contrast was drained and insufflation was performed. Extensive diverticula involving the left hemicolon. No evidence of obstruction. No obvious mucosal ba sed mass or abnormality. Contrast opacifies the left hemicolon but does not reflux into the appendix or distal ileum. Visualized colon does not demonstrate any acute abnormality. On the posteva cuation images, residual contrast is noted. No obvious abnormality in the rectum. IMPRESSION: Diverticulosis. No evidence of obstruction or intraluminal mass. Transcribed Date/Time: 08/16/2019 11:12 AM
== END 2019-08-16 08:46 | disposition home or self-care (01) ==
LOC: RAD 08:45
PROVIDERS: ATTEND Specialist
DX: K64.8 Other hemorrhoids (principal); K57.50 Diverticulosis of both small and large intestine without perforation or abscess without bleeding
CPT/HCPCS: 74280

== ENCOUNTER 2019-08-19 13:55 | Emergency (ER) | payer MEDICARE, OTHER, MEDICAID ==
[2019-08-19 15:00] LABS: Bacteria/HPF 4+ HPF (None Seen); Bilirubin Negative (Negative); Blood, Urine Negative (Negative); Clarity Clear (Clear); Glucose, Urine (Dipstick) Normal (Negative); Ketone, Urine Negative (Negative); Leukocyte 500 Leu/uL (Negative); Nitrite Negative (Negative); Protein, Urine (Dipstick) Negative (Neg-Trace); RBC/HPF 0-3 HPF (0-3); Squamous Epithelial 0-3 HPF (0-3); Urobilinogen Normal mg/dL (Less than 2); WBC/HPF Greater than 50 HPF (0-3); pH, Urine 6.5 (5.0-9.0)
--- NOTE | 2019-08-19 15:28 | RAD ---
KUB: 08/19/19 PROVIDED CLINICAL HISTORY: Constipation. FINDINGS: Comparison 08/05/19. Contrast material is seen throughout the colon from recent barium enema. The abdominal bowel gas araceli mono is nonspecific. There is no evidence for pneumoperitoneum. The visualized lung bases appear clear . No radiographically apparent urinary tract calculi. IMPRESSION: Nonspecific bowel gas pattern. POS: TANA
== END 2019-08-19 17:30 | disposition home or self-care (01) ==
LOC: ERS 13:55
DX: N39.0 Urinary tract infection, site not specified (principal); J44.9 Chronic obstructive pulmonary disease, unspecified; I10 Essential (primary) hypertension; G40.909 Epilepsy, unspecified, not intractable, without status epilepticus; I48.91 Unspecified atrial fibrillation; F32.9 Major depressive disorder, single episode, unspecified; F17.210 Nicotine dependence, cigarettes, uncomplicated; Z79.899 Other long term (current) drug therapy
CPT/HCPCS: 74018; 81003; 81015; 87077; 87086; 87186

== ENCOUNTER 2019-09-16 05:18 | Outpatient (CLI) | payer MEDICARE, OTHER ==
--- NOTE | 2019-09-16 09:58 | RAD ---
EXAM: Chest PA and lateral: HISTORY: Preoperative exam. COMPARISON: 06/01/2019 FINDINGS: Heart: Normal cardiac silhouette Aorta: Atherosclerosis Pulmonary vessels: Normal Costophrenic angles: Costophrenic angles are clear. Lungs: Hyperinflation. Chronic lung parenchymal changes. Chronic calcified granuloma in the right low er lobe. Pneumothorax: No pneumothorax Osseous structures: No osseous abnormalities IMPRESSION: No acute cardiopulmonary process.
[2019-09-16 11:27] LABS: #Basophils 0.1 thou/uL (0.0-0.2); #Eosinphils 0.6 thou/uL (0.0-0.7); #Lymphocytes 2.6 thou/uL (1.20-3.40); #Monocytes 0.7 thou/uL (0.11-0.59); #Neutrophils 6.2 thou/uL (1.40-6.50); %Basophils 0.8 % (0.0-1.0); %Eosinophils 6.1 % (0.0-10.0); %Lymphocytes 25.8 % (21.0-51.0); %Monocytes 6.5 % (0.0-10.0); %Neutrophils 60.8 % (42.0-75.0); Hemoglobin 13.1 g/dL (12.0-16.0); Mean Corpuscular Hemoglobin 29.4 pg (27.0-31.0); Mean Corpuscular Volume 94.7 fL (78.0-98.0); Mean Platelet Volume 7.3 fL (7.4-10.4); Platelet Count 268 thou/uL (130-400); Red Blood Cell (RBC) Count 4.45 mill/uL (4.20-5.40); White Blood Cell (WBC) Count 10.1 thou/uL (4.8-10.8)
[2019-09-16 12:27] LABS: Anion Gap 17 mmol/L (10-20); BUN (Urea Nitrogen) 17 mg/dL (9.8-20.1); Calc. Creatinine Clearance 0 mL/min (70-130); Calcium 11.1 mg/dL (7.8-10.44); Carbon Dioxide 21 mmol/L (23-31); Chloride 102 mmol/L (98-107); Estimated GFR-MDRD 44; Glucose 100 mg/dL (83-110); Potassium 5.3 mmol/L (3.5-5.1); Sodium 135 mmol/L (136-145)
[2019-09-16 17:20] LABS: SARS-CoV-2 MS2 Positive; SARS-CoV-2 N Gene Negative; SARS-CoV-2 S Gene Negative; SARS-CoV-2 by NAA Not Detected (NotDetected); SARS-CoV-2 orf1ab Negative
== END 2019-09-16 05:19 | disposition home or self-care (01) ==
LOC: LABBT 05:18 → SCSLAB 05:19
PROVIDERS: ATTEND Specialist
DX: Z01.818 Encounter for other preprocedural examination (principal); Z11.59 Encounter for screening for other viral diseases; K41.90 Unilateral femoral hernia, without obstruction or gangrene, not specified as recurrent; K64.4 Residual hemorrhoidal skin tags; K64.8 Other hemorrhoids
CPT/HCPCS: 71046; 80048; 85025; 87635; 93005; 93010; U0003

== ENCOUNTER → 2019-09-20 | Day surgery (SDC) | payer MEDICARE, OTHER ==
[2019-09-14 09:20] VITALS: BMI 17.7
[~2019-09-20] MED LIST: Acetaminophen 500 MG TAB ONE; Bupivacaine 0.25% HCL 30 ML VIAL ONE; Ketorolac Tromethamine 30 MG/ML VIAL ONE; Lidocaine 1% w/Epinephrine 1:100K 20 ML VIAL ONE; Lidocaine 2% Jelly 5 ML TUBE ONE
--- NOTE | 2019-09-21 02:59 | TCOM ---
DATE OF STUDY: 09/20/2019 Ms. Wilkerson is an 84-year-old white female who was scheduled to have a bulging femoral hernia repaired today along with a stapled hemorrhoidectomy. She had been hospitalized in early August with a Klebsiella urinary tract infection, which had resolved. I saw her back in my office a couple of weeks ago. She was without symptoms and was scheduled for surgery. Unbeknownst to me, a week ago today, she presented to the emergency room for a uterine/vaginal prolapse. At that time, she tells me that she was without urinary symptoms; however, urinalysis was obtained. This revealed turbid urine with 50 white blood cells per field and culture revealing over 100,000 E coli. She received no antibiotics at that time and has received none since. I was not aware of this until today, shortly before her surgery when she mentioned this to me. When I reviewed her records and discern that she did in fact have an untreated urinary tract infection, I canceled her surgery. I explained that implantation of mesh with a peripheral/nearby infection is not contraindicated and told her that we would need to treat her urinary tract infection and do her surgery when this was resolved. She was initially given a prescription for Suprax. I was later called and told her this was not covered by her insurance and her prescription was then changed to Ceftin. She will be treated for 10 days. I will see her back in 2 weeks. If she is without symptoms and apparently has resolved infection at that time, then I would plan on go and ahead with the same surgery. She is discharged home today without surgery. Job ID: [id number]
== END ==
LOC: SDC 06:58
PROVIDERS: ATTEND Specialist
DX: K41.90 Unilateral femoral hernia, without obstruction or gangrene, not specified as recurrent (principal); K64.4 Residual hemorrhoidal skin tags; K64.8 Other hemorrhoids; N39.0 Urinary tract infection, site not specified; B96.20 Unspecified Escherichia coli [E. coli] as the cause of diseases classified elsewhere; K57.50 Diverticulosis of both small and large intestine without perforation or abscess without bleeding; K86.2 Cyst of pancreas; I10 Essential (primary) hypertension; J44.9 Chronic obstructive pulmonary disease, unspecified; F32.9 Major depressive disorder, single episode, unspecified; G40.909 Epilepsy, unspecified, not intractable, without status epilepticus; Z53.8 Procedure and treatment not carried out for other reasons; Z87.891 Personal history of nicotine dependence; Z79.899 Other long term (current) drug therapy; Z88.0 Allergy status to penicillin; Z88.1 Allergy status to other antibiotic agents; Z88.2 Allergy status to sulfonamides; Z88.8 Allergy status to other drugs, medicaments and biological substances
CPT/HCPCS: 94640; J0694; J1885; J7620; S0020

== ENCOUNTER 2019-10-07 07:34 | Outpatient (CLI) | payer MEDICARE, OTHER ==
--- NOTE | 2019-10-07 13:41 | RAD ---
EXAM: Two views chest PROVIDED CLINICAL HISTORY: Preoperative evaluation. Atrial fibrillation. Leaking bowel. COMPARISON: 09/16/2019 FINDINGS: Cardiac silhouette and pulmonary vasculature are within normal limits. . Scattered linear densities are seen greater in the left lung base with slightly greater patchy density seen on lateral view likely within the region of the lingula. Reticulonodular densities were seen at the lung bases bilate rally on recent CT abdomen on 08/05/2019, and findings may be related to residual densities at each lung base suggesting infectious or inflammatory process. There is no consolidation or pleural fluid s een. Calcified granuloma is seen at the right lung base. Symmetric biapical pleural thickening is present. Vascular calcifications are seen in the thoracic aorta. No other interval change. IMPRESSION: Interstitial densities at each lung base with slightly greater patchy density at the left lung base. CT scan abdomen on 08/05/2019 demonstrated reticulonodular and patchy parenchymal densities at each lung base. Findings may be related to residual infectious or inflammatory process. Atypical infectiou s process is a possibility.
[2019-10-07 16:29] LABS: #Basophils 0.1 thou/uL (0.0-0.2); #Eosinphils 0.3 thou/uL (0.0-0.7); #Lymphocytes 1.3 thou/uL (1.20-3.40); #Monocytes 0.5 thou/uL (0.11-0.59); #Neutrophils 7.1 thou/uL (1.40-6.50); %Eosinophils 2.7 % (0.0-10.0); %Lymphocytes 13.8 % (21.0-51.0); %Monocytes 5.5 % (0.0-10.0); Hemoglobin 11.9 g/dL (12.0-16.0); Mean Corpuscular HGB CONC 30.8 g/dL (32.0-36.0); Mean Corpuscular Hemoglobin 28.8 pg (27.0-31.0); Mean Corpuscular Volume 93.4 fL (78.0-98.0); Mean Platelet Volume 6.9 fL (7.4-10.4); Platelet Count 379 thou/uL (130-400); RBC Distribution Width 14.2 % (11.5-14.5); Red Blood Cell (RBC) Count 4.14 mill/uL (4.20-5.40); White Blood Cell (WBC) Count 9.2 thou/uL (4.8-10.8)
--- NOTE | 2019-10-07 16:49 | EKG ---
Test Reason : SURGERY Blood Pressure : / mmHG Vent. Rate : 074 BPM Atrial Rate : 074 BPM P-R Int : 202 ms QRS Dur : 124 ms QT Int : 390 ms P-R-T Axes : 084 071 070 degrees QTc Int : 432 ms Normal sinus rhythm Possible Left atrial enlargement RSR' or QR pattern in V1 suggests right ventricular conduction delay Borderline ECG Confirmed by DR. Salinas RUVALCABA ([id number]) on 10/07/2019 4:48:53 PM Referred By: axel Confirmed By:DR. Salinas RUVALCABA
[2019-10-07 17:33] LABS: Anion Gap 13 mmol/L (10-20); BUN (Urea Nitrogen) 20 mg/dL (9.8-20.1); Calc. Creatinine Clearance 0 mL/min (70-130); Calcium 10.8 mg/dL (7.8-10.44); Carbon Dioxide 23 mmol/L (23-31); Chloride 96 mmol/L (98-107); Estimated GFR-MDRD 55; Glucose 117 mg/dL (83-110); Potassium 5.2 mmol/L (3.5-5.1); Sodium 127 mmol/L (136-145)
[2019-10-08 14:02] LABS: SARS-CoV-2 MS2 Positive; SARS-CoV-2 N Gene Negative; SARS-CoV-2 S Gene Negative; SARS-CoV-2 by NAA Not Detected (NotDetected); SARS-CoV-2 orf1ab Negative
== END 2019-10-07 07:35 | disposition home or self-care (01) ==
LOC: LABBT 07:34 → SCSRAD 07:35
PROVIDERS: ATTEND Specialist
DX: Z01.818 Encounter for other preprocedural examination (principal); Z20.828 Contact with and (suspected) exposure to other viral communicable diseases; K41.90 Unilateral femoral hernia, without obstruction or gangrene, not specified as recurrent; K64.4 Residual hemorrhoidal skin tags; K64.8 Other hemorrhoids
CPT/HCPCS: 71046; 80048; 85025; 87635; 93005; 93010; U0003

== ENCOUNTER 2020-02-04 16:54 | Inpatient (IN) | payer MEDICARE, OTHER ==
[2020-02-04] MEDS ORDERED: Magnesium 2 GM/50 ML BAG (IN WATER) ONE (17:23)
[2020-02-04] MEDS ORDERED: methylPREDNISolone Sod Succ/PF 125 MG/2 ML VIAL ONE (17:23)
[2020-02-04 17:29] LABS: #Basophils 0.1 thou/uL (0.0-0.2); #Eosinphils 0.1 thou/uL (0.0-0.7); #Lymphocytes 1.3 thou/uL (1.20-3.40); #Monocytes 0.8 thou/uL (0.11-0.59); #Neutrophils 10.1 thou/uL (1.40-6.50); %Basophils 0.5 % (0.0-1.0); %Eosinophils 1.1 % (0.0-10.0); %Lymphocytes 10.8 % (21.0-51.0); %Monocytes 6.2 % (0.0-10.0); %Neutrophils 81.4 % (42.0-75.0); Hemoglobin 13.1 g/dL (12.0-16.0); Mean Corpuscular HGB CONC 32.6 g/dL (32.0-36.0); Mean Corpuscular Hemoglobin 30.1 pg (27.0-31.0); Mean Corpuscular Volume 92.3 fL (78.0-98.0); Mean Platelet Volume 8.3 fL (7.4-10.4); Platelet Count 204 thou/uL (130-400); RBC Distribution Width 14.2 % (11.5-14.5); Red Blood Cell (RBC) Count 4.36 mill/uL (4.20-5.40); White Blood Cell (WBC) Count 12.4 thou/uL (4.8-10.8)
[2020-02-04 17:50] LABS: ALT (SGPT) 15 U/L (8-55); AST (SGOT) 22 U/L (5-34); Albumin 3.8 g/dL (3.4-4.8); Alkaline Phosphatase 112 U/L (40-110); Anion Gap 16 mmol/L (10-20); BUN (Urea Nitrogen) 22 mg/dL (9.8-20.1); Bilirubin, Total 0.4 mg/dL (0.2-1.2); Calc. Creatinine Clearance 0 mL/min (70-130); Calcium 11.1 mg/dL (7.8-10.44); Carbon Dioxide 26 mmol/L (23-31); Chloride 95 mmol/L (98-107); Globulin 3.7 g/dL (2.4-3.5); Glucose 93 mg/dL (83-110); Lipase 15 U/L (8-78); Protein, Total 7.5 g/dL (6.0-8.3); Sodium 132 mmol/L (136-145)
--- NOTE | 2020-02-04 18:31 | RAD ---
CHEST ONE VIEW: History: Chest pain Comparison: 10-07-2019 FINDINGS: There are new peripheral opacities in the lungs. Background and hyperinflation. Heart size is mildly enlarged. No pneumothorax. IMPRESSION: Peripheral opacities may reflect scar or atypical infectious process. POS: HOME
[2020-02-04] MEDS ORDERED: Albuterol 200 PUFF (6.7GM INHALER) ONE (19:15)
--- NOTE | 2020-02-04 20:40 | CT ---
CT ANGIOGRAM THORAX WITH IV CONTRAST AND 3-D RECONSTRUCTIONS CLINICAL INDICATION: Chest pain. Hypoxia. COMPARISON: CT thorax on 02/04/2020 FINDINGS: Pulmonary arteries: No filling defects are seen in the pulmonary arteries to suggest a pulmonary embo magno. Aorta: Vascular calcifications are seen in thoracic aorta. Thoracic aorta is normal in caliber withou t evidence of an aortic dissection. Lungs: Consolidation left lower lobe persists. There is been interval increase in reticular nodular d ensities in the right lower lobe with interval development of reticulonodular densities in the right upper lobe and right middle lobe compared to prior study. Findings are worrisome for infectious process and possibly atypical infectious process. Filling defects are seen in a few left lower lobe bronchioles. Remainder of the visualized large airw ays do appear patent. Mild emphysematous changes are seen in the lungs with scattered areas of scarring including areas of scarring at each lung apex and anteromedial right upper lobe. Nodular density in the right lower lobe near the major fissure is again seen and unchanged. There is a new pleural-based nodular density lateral aspect right lower lobe measuring 1.2 cm. The large coarse calcification and adjacent parenchymal density posterior right lung base is again present. Mediastinum: Soft tissue density is seen in each hilar region more prominent on the left which measur es 1.6 cm in short axis dimension. Findings may related to reactive lymphadenopathy Thyroid gland: Not well assessed on this exam. Osseous structures: Degenerative changes seen in the spine. There is trace retrolisthesis of T11 on T 12. Chest wall: No abnormality visualized. Upper abdomen: There is nonspecific inflammatory stranding seen adjacent to the superior pole of each kidney. IMPRESSION: 1. Persistent consolidation in the left lower lobe now with reticulonodular densities within the lung s bilaterally which have increased compared to prior exam. Findings are worrisome for infectious process and possibly atypical infectious process. Follow-up to resolution is recommended. 2. Nodular densities in the right lower lobe. This could also be secondary to infectious process and follow-up evaluation is recommended. 3. Filling defects are seen in a few left lower lobe bronchi which could be related to either aspirat ion or mucous plugging. 4. Probable reactive bilateral hilar lymphadenopathy. 5. No CT evidence of a pulmonary embolus. 6. Nonspecific stranding adjacent to superior pole of each kidney.
[2020-02-04 21:04] LABS: SARS-CoV-2 NAA Rapid Test Not Detected (NotDetected)
[2020-02-04] MEDS ORDERED: metroNIDAZOLE 500 MG/100 ML BAG ONE (22:01)
[2020-02-04] MEDS ORDERED: Aspirin Chewable 81 MG TAB ONE (22:47)
[2020-02-04] MEDS ORDERED: Ondansetron PF 4 MG/2 ML Vial IVP PRN (23:47)
[2020-02-04] MEDS ORDERED: Ondansetron ODT 4 MG TAB PO PRN (23:47)
--- NOTE | 2020-02-05 01:57 | PDOC.HHP ---
Hospitalist HPI - History of Present Illness Shortness of breath History of Present Illness: This is an 85-year-old female patient with a history of COPD on 2 L home oxygen, Hypertension, ulcerative colitis, epilepsy and spinal stenosis who presents with worsening shortness of breath and cough for over a week. She notes having had symptoms for a while now and has been on antibiotics however she cannot recollect the names. Due to worsening shortness of breath, EMS was activated, she was noted to be hyp oxic in the 80s. On presentation her blood pressures were 110/62, respiratory rate 20, temperature 98.0 with saturation at 96 on 2 L to 4 L oxygen. She had a leukocytosis of 12.4, neutrophils 81.4 no bands. Chemistry showed mild hyponatremia of 132, otherwise generally within normal limits. Covid PCR and influenza a and B RNA were negative. Chest x-ray showed peripheral opacities concerning for atypical infectious process and CTA noted persistent consolidation in left lower lobe concerning for infection. Concerns for nodular densities in right lobe also concerning for infection. Filling defect was noted in the left liver bronchi concerning for possible aspiration or mucous plugging. She has multiple antibiotic allergiesrestriction choice of antibiotics. She was started on doxycycline and Flagyl. Hospitalist team consulted for admission. Hospitalist ROS - Medication Medications: Refer to ambulatory order list for medications Allergy: multi antibiotic allergies Hospitalist History - Past Medical History Cardiac: reports: HTN Pulmonary: reports: COPD Renal/: reports: UTI - Past Surgical History Past Surgical History: reports: - Family History Family History: reports: no pertinent history - Social History Smoking Status: Never smoker Alcohol: reports: None Drugs: reports: none Living Situation: With Family - Exam General Appearance: awake alert Eye: PERRL, anicteric sclera ENT: normocephalic atraumatic, no oropharyngeal lesions Neck: supple, symmetric, no JVD, no thyromegaly Heart: RRR, no murmur, no gallops, no rubs Respiratory - other findings: Reduced air entry bilaterally, scattered wheeze. Gastrointestinal: soft, non-tender, non-distended, normal bowel sounds Extremities: no cyanosis, no clubbing, no edema Neurological: cranial nerve grossly intact, no focal deficits Psychiatric: normal affect, A&O x 3 Hospitalist Results - Labs Result Diagrams: 02/05/20 03:55 02/05/20 03:55 Lab results: WBC 12.4 thou/uL (4.8-10.8) H 02/04/20 16:40 Hgb 13.1 g/dL (12.0-16.0) 02/04/20 16:40 Hct 40.3 % (36.0-47.0) 02/04/20 16:40 MCV 92.3 fL (78.0-98.0) 02/04/20 16:40 Plt Count 204 thou/uL (130-400) 02/04/20 16:40 Neutrophils % 81.4 % (42.0-75.0) H 02/04/20 16:40 Sodium 132 mmol/L (136-145) L 02/04/20 16:40 Potassium 5.0 mmol/L (3.5-5.1) 02/04/20 16:40 Chloride 95 mmol/L (98-107) L 02/04/20 16:40 Carbon Dioxide 26 mmol/L (23-31) 02/04/20 16:40 BUN 22 mg/dL (9.8-20.1) H 02/04/20 16:40 Creatinine 1.00 mg/dL (0.6-1.1) 02/04/20 16:40 Glucose 93 mg/dL (83-110) 02/04/20 16:40 Lactic Acid 0.9 mmol/L (0.5-2.2) 02/04/20 17:31 Calcium 11.1 mg/dL (7.8-10.44) H 02/04/20 16:40 Total Bilirubin 0.4 mg/dL (0.2-1.2) 02/04/20 16:40 AST 22 U/L (5-34) 02/04/20 16:40 ALT 15 U/L (8-55) 02/04/20 16:40 Alkaline Phosphatase 112 U/L (40-110) H 02/04/20 16:40 Troponin I 0.012 ng/mL (< 0.028) 02/04/20 21:20 B-Natriuretic Peptide 36.3 pg/mL (0-100) 02/04/20 16:40 Serum Total Protein 7.5 g/dL (6.0-8.3) 02/04/20 16:40 Albumin 3.8 g/dL (3.4-4.8) 02/04/20 16:40 Lipase 15 U/L (8-78) 02/04/20 16:40 Hospitalist H&P A/P - Plan Plan: This is a 85-year-old female patient history of COPD on home oxygen, CAD, hypertension spinal stenosis presented on account of worsening shortness of breath for the past couple of weeks. Acute hypoxic respiratory failure In the setting of pneumonia/COPD exacerbation Covid test pending Continue oxygen therapy Pulmonary consult if deteriorates Bilateral pneumonia Possibly atypical versus aspiration Started on doxycycline and metronidazolehas multiple antibiotic allergies. We will continue duo nebs Swallow screen/dysphagia evaluation given concerns for aspirationspeech therapy to evaluate if indicated Follow-up blood cultures Possible COPD exacerbation Continue steroids antibiotics as above Oxygen therapy/DuoNeb as needed. Hypertension Blood pressure is currently controlled Resume home meds once verified. Chronic back pain As needed Tylenol Lidocaine patch as needed VT prophylaxisLovenox CODE STATUSfull code
[2020-02-05 02:00] LABS: Troponin I 0.015 ng/mL (< 0.028)
[2020-02-05 04:40] LABS: #Lymphocytes 0.4 thou/uL (1.20-3.40); #Monocytes 0.1 thou/uL (0.11-0.59); #Neutrophils 6.4 thou/uL (1.40-6.50); %Basophils 0.1 % (0.0-1.0); %Eosinophils 0.1 % (0.0-10.0); %Lymphocytes 6.5 % (21.0-51.0); %Monocytes 0.8 % (0.0-10.0); %Neutrophils 92.5 % (42.0-75.0); Hemoglobin 11.8 g/dL (12.0-16.0); Mean Corpuscular HGB CONC 31.9 g/dL (32.0-36.0); Mean Corpuscular Volume 94.1 fL (78.0-98.0); Mean Platelet Volume 8.1 fL (7.4-10.4); Platelet Count 196 thou/uL (130-400); RBC Distribution Width 13.9 % (11.5-14.5); Red Blood Cell (RBC) Count 3.94 mill/uL (4.20-5.40); White Blood Cell (WBC) Count 6.9 thou/uL (4.8-10.8)
[2020-02-05 04:57] LABS: Anion Gap 13 mmol/L (10-20); BUN (Urea Nitrogen) 27 mg/dL (9.8-20.1); Calc. Creatinine Clearance 26 mL/min (70-130); Calcium 10.3 mg/dL (7.8-10.44); Carbon Dioxide 26 mmol/L (23-31); Chloride 100 mmol/L (98-107); Glucose 239 mg/dL (83-110); Potassium 4.9 mmol/L (3.5-5.1); Sodium 134 mmol/L (136-145)
[2020-02-05 05:01] LABS: Troponin I 0.011 ng/mL (< 0.028)
[2020-02-05] MEDS: metroNIDAZOLE 500 MG in Premix Bag 1 BAG IVPB SCH ×3 (05:33→21:52)
[2020-02-05] MEDS: Lidocaine 5% Patch TD SCH (09:00)
[2020-02-05] MEDS ORDERED: methylPREDNISolone Sod Succ 40 MG VIAL IVP SCH (09:00)
[2020-02-05] MEDS ORDERED: Doxycycline 100 MG in Syringe 0 ML IVPB SCH (09:00)
[2020-02-05] MEDS ORDERED: Enoxaparin Sodium 40 MG/0.4 ML SYRINGE SC SCH (09:00)
--- NOTE | 2020-02-05 16:21 | PDOC.HOSPP ---
- Subjective Encounter Date: 02/05/20 Encounter Time: 14:00 Subjective: F/u: pneumonia THe patient states she feels much better. She had left sided back pain which has completely resolved now. She is still coughing a lot, states that it is mildly productive and occasionally juanjo in color. She has no chest pain. She is on 2L nasal cannula at home. The patient ambulated with the nurse who felt she was very unsteady and the patient almost fell. She does use a walker at home - Objective Vital Signs & Weight: Vital Signs (12 hours) Temp Pulse Resp BP Pulse Ox 02/05/20 16:00 98.6 F 102 H 19 172/59 H 95 02/05/20 14:25 108 H 16 02/05/20 12:00 98.6 F 102 H 18 168/74 H 94 L 02/05/20 10:45 109 H 19 02/05/20 08:18 84 18 02/05/20 08:00 96.1 F L 80 17 171/74 H 96 Weight Weight 94 lb 12.78 oz I&O: 02/04/20 02/05/20 02/06/20 06:59 06:59 06:59 Intake Total 30 Output Total 0 Balance 30 Result Diagrams: 02/05/20 03:55 02/05/20 03:55 Hospitalist ROS - Review of Systems Constitutional: denies: fever, chills - Medication Medications: Active Medications Generic Name Dose Route Start Last Admin Trade Name Freq PRN Reason Stop Dose Admin Albuterol/Ipratropium 3 ml 02/05/20 02:30 02/05/20 14:25 Ipratropium/Albuterol Sulfate 3 Ml Neb NEB 3 ml [id number] NICKIE Administration Metronidazole 500 mg/ Device 100 mls @ 100 mls/hr 02/05/20 06:00 02/05/20 14:31 IVPB 100 mls Q8HR NICKIE Administration Lidocaine 1 patch 02/05/20 09:00 02/05/20 09:00 Lidocaine 5% Patch TD 1 patch DAILY NICKIE Administration Methylprednisolone Sodium Succinate 40 mg 02/05/20 09:00 02/05/20 09:00 Methylprednisolone Sod Succ 40 Mg Vial IVP 40 mg DAILY NICKIE Administration - Exam General Appearance: NAD, awake alert General - other findings: significant cough noted at the bedside Eye: PERRL, anicteric sclera ENT: normocephalic atraumatic, no oropharyngeal lesions Neck: no JVD Heart: RRR, no murmur, no gallops, no rubs Respiratory: CTAB, no wheezes, no rales, no ronchi Gastrointestinal: soft, non-tender, non-distended, normal bowel sounds Extremities: no cyanosis, no clubbing, no edema Skin: normal turgor, no lesions, no rashes Neurological: cranial nerve grossly intact, normal sensation to touch, no weakness Musculoskeletal: normal tone, normal strength, no muscle wasting Psychiatric: normal affect, normal behavior, A&O x 3, oriented to person Hosp A/P - Plan CTA chest: LLL consolidation with reticulonodular densities in lungs bilaterally. Nodular densities right lower lobe. Filling defects left lower lobe bronchi aspiration or mucous plugging. Bilateral hilar adenopathy This is an 85 year old female who presented with left sided chest pain and was incidentally found to have a pneumonia #Acute bilateral pneumonia #Chronic respiratory failure - CTA shows LLL consolidation and nodular densities in the right lower lobe and reticulonodular densities bilaterally. The patient was started on IV doxycycline and flagyl. She is on her baseline oxygen. Her WBC has resolved - will add tessalon pearls for cough. Switch IV steroids to oral and give one dose of pepcid in case reflux is aggravating her cough - continue duonebs Weakness - patient very unsteady with walking. PT evaluation pending Chest pain - resolved - appeared to be pleuritic with coughing. Troponins negative -
[2020-02-05] MEDS ORDERED: Famotidine/PF 20 mg/2ml Vial SLOW IVP SCH (16:30)
[2020-02-05] MEDS: guaiFENesin ER 600 MG TAB PO SCH (17:35)
[2020-02-05] MEDS ORDERED: Venlafaxine HCl XR 75 MG CAP PO SCH (18:25)
[2020-02-05] MEDS ORDERED: Venlafaxine XR 37.5 MG CAP PO SCH (18:30)
[2020-02-05] MEDS: Venlafaxine XR 37.5 MG CAP PO SCH (18:42)
[2020-02-05] MEDS: Venlafaxine HCl XR 75 MG CAP PO SCH (18:42)
[2020-02-05] MEDS: Acetaminophen 325 MG TAB PO PRN (19:30)
[2020-02-05] MEDS: Lidocaine Patch Removal 1 EACH TOP SCH (21:51)
[2020-02-05] MEDS ORDERED: Non-Formulary Item 1 EACH (Acetaminophen With Codeine [Acetaminophen/Codeine #4] 300 MG/6 PO PRN (22:43)
[2020-02-05] MEDS ORDERED: levETIRAcetam 500 MG TAB PO SCH (23:00)
[2020-02-06] MEDS: Acetaminophen 325 MG TAB PO PRN (00:09)
[2020-02-06 04:00] LABS: #Lymphocytes 0.5 thou/uL (1.20-3.40); #Monocytes 0.5 thou/uL (0.11-0.59); #Neutrophils 16.2 thou/uL (1.40-6.50); %Basophils 0.1 % (0.0-1.0); %Eosinophils 0.1 % (0.0-10.0); %Lymphocytes 3.1 % (21.0-51.0); %Neutrophils 93.8 % (42.0-75.0); Hemoglobin 12.1 g/dL (12.0-16.0); Mean Corpuscular HGB CONC 32.6 g/dL (32.0-36.0); Mean Corpuscular Hemoglobin 30.3 pg (27.0-31.0); Mean Corpuscular Volume 93.1 fL (78.0-98.0); Platelet Count 205 thou/uL (130-400); RBC Distribution Width 13.9 % (11.5-14.5); Red Blood Cell (RBC) Count 3.99 mill/uL (4.20-5.40); White Blood Cell (WBC) Count 17.2 thou/uL (4.8-10.8)
[2020-02-06 04:14] LABS: Anion Gap 14 mmol/L (10-20); BUN (Urea Nitrogen) 33 mg/dL (9.8-20.1); Calc. Creatinine Clearance 26 mL/min (70-130); Calcium 10.3 mg/dL (7.8-10.44); Carbon Dioxide 25 mmol/L (23-31); Chloride 101 mmol/L (98-107); Glucose 129 mg/dL (83-110); Potassium 4.2 mmol/L (3.5-5.1); Sodium 136 mmol/L (136-145)
--- NOTE | 2020-02-06 06:12 | PDOC.BPN ---
- Brief Progress Note Encounter Date: 02/06/20 My attention to patient being allergy to doxycycline. She has not received since admission. Cephalic been on metronidazole Decided to discontinue metronidazole and doxycycline Start on clindamycin for more general broad coverage This can be further reviewed by day team/ID if necessary.
[2020-02-06] MEDS: Acetaminophen/Codeine 30-300mg Tablet PO PRN ×2 (06:22→20:25)
[2020-02-06] MEDS: guaiFENesin ER 600 MG TAB PO SCH ×2 (06:22→16:36)
[2020-02-06] MEDS: metroNIDAZOLE 500 MG in Premix Bag 1 BAG IVPB SCH (06:25)
[2020-02-06] MEDS ORDERED: Clindamycin/D5W 600 MG in Premix Bag 1 BAG IVPB SCH (08:00)
[2020-02-06] MEDS: levETIRAcetam 500 MG TAB PO SCH ×2 (09:10→20:25)
[2020-02-06] MEDS: Venlafaxine XR 37.5 MG CAP PO SCH (09:11)
[2020-02-06] MEDS: Enoxaparin Sodium 30 MG/0.3 ML SYRINGE SC SCH (09:11)
[2020-02-06] MEDS: Venlafaxine HCl XR 75 MG CAP PO SCH (09:11)
[2020-02-06] MEDS: Lidocaine 5% Patch TD SCH (09:12)
[2020-02-06] MEDS: Losartan 25 MG TAB PO SCH (09:12)
[2020-02-06] MEDS ORDERED: predniSONE 20 MG TAB PO SCH (10:15)
[2020-02-06] MEDS ORDERED: Doxycycline 100 MG in Syringe 0 ML IVPB SCH (13:40)
[2020-02-06] MEDS ORDERED: metroNIDAZOLE 500 MG TAB PO SCH (15:00)
[2020-02-06] MEDS ORDERED: Vancomycin 1 GM in Premix Bag 1 BAG IVPB SCH (15:00)
--- NOTE | 2020-02-06 16:12 | PDOC.HOSPP ---
- Subjective Encounter Date: 02/06/20 Encounter Time: 16:10 Subjective: F/u: pneumonia The patient says she still has an excessive amount of coughing. On chart review, she only received flagyl and never received any other antibiotic due to concern for allergy. Discussed with the patient and her [id number] who are agreeable to trying one of her antibiotics she is supposedly allergic to to monitor for any reactions Patient states she had seizures with cipro and levaquin. She repots hives with penicillin. She states clindamycin she tolerated at first, but then after a few days she had to stop it and doesn't remember why. Doxycycline she can't remember what her reaction was. Her PCP was Dr. Polk who is retired so unable to reach, however daughter in law states records were transferred to Dr. Kenney at [facility] - Objective Vital Signs & Weight: Vital Signs (12 hours) Temp Pulse Pulse Pulse Pulse Resp BP 02/06/20 14:58 98 20 02/06/20 11:49 98.4 F 92 20 02/06/20 10:44 88 20 02/06/20 09:20 85 86 89 174/77 H 02/06/20 08:50 97.4 F L 87 21 H 02/06/20 06:51 02/06/20 06:48 83 20 BP BP BP Pulse Ox Pulse Ox Pulse Ox 02/06/20 14:58 96 02/06/20 11:49 172/75 H 96 02/06/20 10:44 98 02/06/20 09:20 207/93 H 176/77 H 97 98 02/06/20 08:50 155/70 H 96 02/06/20 06:51 98 02/06/20 06:48 98 Weight Admit Weight 94 lb 12.78 oz Weight 94 lb 12.78 oz I&O: 02/05/20 02/06/20 02/07/20 06:59 06:59 06:59 Intake Total 30 1160 Output Total 0 1000 Balance 30 160 Result Diagrams: 02/06/20 03:32 02/06/20 03:32 Hospitalist ROS - Review of Systems Constitutional: denies: fever, chills - Medication Medications: Active Medications Generic Name Dose Route Start Last Admin Trade Name Freq PRN Reason Stop Dose Admin Acetaminophen 650 mg 02/04/20 23:47 02/06/20 00:09 Acetaminophen 325 Mg Tab PO 650 mg Q4H PRN Administration Headache/Fever/Mild Pain (1-3) Acetaminophen/Codeine Phosphate 1 tab 02/05/20 23:06 02/06/20 06:22 Acetaminophen/Codeine 30-300mg Tablet PO 1 tab Q6H PRN Administration Moderate Pain (4-6) Albuterol/Ipratropium 3 ml 02/05/20 02:30 02/06/20 14:58 Ipratropium/Albuterol Sulfate 3 Ml Neb NEB 3 ml [id number] NICKIE Administration Enoxaparin Sodium 30 mg 02/06/20 09:00 02/06/20 09:11 Enoxaparin Sodium 30 Mg/0.3 Ml Syringe SC 30 mg 0900 NICKIE Administration Guaifenesin 600 mg 02/05/20 18:00 02/06/20 06:22 Guaifenesin Er 600 Mg Tab PO 600 mg 0600,1800 NICKIE Administration Vancomycin HCl 1 gm/ Device 200 mls @ 200 mls/hr 02/06/20 15:00 02/06/20 15:06 IVPB 02/06/20 17:00 200 mls 1500 NICKIE Administration Levetiracetam 500 mg 02/06/20 09:00 02/06/20 09:10 Levetiracetam 500 Mg Tab PO 500 mg BID NICKIE Administration Lidocaine 1 patch 02/05/20 09:00 02/06/20 09:12 Lidocaine 5% Patch TD 1 patch DAILY NICKIE Administration Losartan Potassium 100 mg 02/06/20 09:00 02/06/20 09:12 Losartan 25 Mg Tab PO 100 mg DAILY NICKIE Administration Mirabegron 50 mg 02/06/20 09:00 02/06/20 09:13 Mirabegron Er 25 Mg Tab PO 50 mg DAILY NICKIE Administration Miscellaneous Medication 1 each 02/05/20 21:00 02/05/20 21:51 Lidocaine Patch Removal 1 Each TOP 1 each 2099 NICKIE Administration Quetiapine Fumarate 25 mg 02/05/20 21:00 02/05/20 21:51 Quetiapine Fumarate 25 Mg Tab PO 25 mg HS NICKIE Administration Ranolazine 500 mg 02/05/20 21:00 02/06/20 09:10 Ranolazine 500 Mg Tab PO 500 mg BID NICKIE Administration Sodium Chloride 10 ml 02/06/20 09:00 02/06/20 09:12 Flush - Normal Saline 10 Ml Syringe IVF 10 ml Q12HR NICKIE Administration Venlafaxine HCl 37.5 mg 02/05/20 09:00 02/06/20 09:11 Venlafaxine Xr 37.5 Mg Cap PO 37.5 mg DAILY NICKIE Administration Venlafaxine HCl 75 mg 02/05/20 09:00 02/06/20 09:11 Venlafaxine Hcl Xr 75 Mg Cap PO 75 mg DAILY NICKIE Administration - Exam General Appearance: NAD, awake alert, ill appearing General - other findings: very cachectic and malnourished Eye: PERRL, anicteric sclera ENT: normocephalic atraumatic, no oropharyngeal lesions Neck: no JVD Heart: RRR, no murmur, no gallops, no rubs Respiratory: CTAB, no wheezes, no rales, no ronchi Gastrointestinal: soft, non-tender, non-distended, normal bowel sounds Extremities: no cyanosis, no clubbing, no edema Skin: normal turgor, no lesions, no rashes Neurological: cranial nerve grossly intact, normal sensation to touch, no weakness, no focal deficits Hosp A/P - Plan CTA chest: LLL consolidation with reticulonodular densities in lungs bilaterally. Nodular densities right lower lobe. Filling defects left lower lobe bronchi aspiration or mucous plugging. Bilateral hilar adenopathy This is an 85 year old female who presented with left sided chest pain and was incidentally found to have a pneumonia #Acute bilateral pneumonia #Chronic respiratory failure - CTA shows LLL consolidation and nodular densities in the right lower lobe and reticulonodular densities bilaterally. The patient was only received IV flagyl due to patient's concerns for antibiotic allegies - WBC is up to 17. Patient is in agreement to starting IV vancomycin and cefepime and will monitor for any adverse reactions - continue tessalon pearls and duonebs Weakness - patient very unsteady with walking. PT evaluation is recommending home with home health. Case management has been consulted Chest pain - resolved - appeared to be pleuritic with coughing. Troponins negative -
[2020-02-06] MEDS: Cefepime 2 GM in Sodium Chloride 0.9% 100 ML IVPB SCH (16:36)
[2020-02-06] MEDS: Lidocaine Patch Removal 1 EACH TOP SCH (20:26)
[2020-02-07] MEDS: Cefepime 2 GM in Sodium Chloride 0.9% 100 ML IVPB SCH ×3 (01:19→17:33)
[2020-02-07] MEDS: guaiFENesin ER 600 MG TAB PO SCH ×2 (05:22→17:34)
[2020-02-07 06:46] LABS: #Lymphocytes 0.8 thou/uL (1.20-3.40); #Neutrophils 15.6 thou/uL (1.40-6.50); %Eosinophils 0.1 % (0.0-10.0); %Lymphocytes 4.4 % (21.0-51.0); %Monocytes 5.5 % (0.0-10.0); Hemoglobin 11.4 g/dL (12.0-16.0); Mean Corpuscular Hemoglobin 30.7 pg (27.0-31.0); Mean Platelet Volume 7.6 fL (7.4-10.4); Platelet Count 262 thou/uL (130-400); RBC Distribution Width 14.2 % (11.5-14.5); Red Blood Cell (RBC) Count 3.72 mill/uL (4.20-5.40); White Blood Cell (WBC) Count 17.4 thou/uL (4.8-10.8)
[2020-02-07 06:57] LABS: Anion Gap 13 mmol/L (10-20); BUN (Urea Nitrogen) 31 mg/dL (9.8-20.1); Calc. Creatinine Clearance 31 mL/min (70-130); Calcium 10.3 mg/dL (7.8-10.44); Carbon Dioxide 28 mmol/L (23-31); Chloride 99 mmol/L (98-107); Glucose 123 mg/dL (83-110); Potassium 4.3 mmol/L (3.5-5.1); Sodium 136 mmol/L (136-145)
[2020-02-07] MEDS: levETIRAcetam 500 MG TAB PO SCH ×2 (08:39→20:04)
[2020-02-07] MEDS: Venlafaxine HCl XR 75 MG CAP PO SCH (08:39)
[2020-02-07] MEDS: Venlafaxine XR 37.5 MG CAP PO SCH (08:39)
[2020-02-07] MEDS: Losartan 25 MG TAB PO SCH (08:39)
[2020-02-07] MEDS: Enoxaparin Sodium 30 MG/0.3 ML SYRINGE SC SCH (08:40)
[2020-02-07] MEDS: Lidocaine 5% Patch TD SCH (08:40)
[2020-02-07] MEDS: Acetaminophen/Codeine 30-300mg Tablet PO PRN ×2 (11:46→17:33)
--- NOTE | 2020-02-07 14:37 | PDOC.HOSPP ---
- Subjective Encounter Date: 02/07/20 Encounter Time: 09:00 Subjective: F/u; pneumonia The patient says her cough has significantly improved. She is still very weak and not able to get up. Yesterday PT only stood her up because her blood pressure went up to 200 while standing. Home antihypertensives were then resumed. She has not had any rashes with the current antibiotics - Objective Vital Signs & Weight: Vital Signs (12 hours) Temp Pulse Resp BP Pulse Ox 02/07/20 11:39 97.6 F 86 18 188/89 H 94 L 02/07/20 10:31 79 20 93 L 02/07/20 07:40 97.9 F 80 18 178/89 H 95 02/07/20 07:22 97 02/07/20 07:21 88 16 97 02/07/20 05:25 166/77 H 02/07/20 04:00 97.4 F L 74 18 189/85 H 99 Weight Admit Weight 94 lb 12.78 oz Weight 94 lb 12.78 oz I&O: 02/06/20 02/07/20 02/08/20 06:59 06:59 06:59 Intake Total 1160 1880 Output Total 1000 525 Balance 160 1355 Result Diagrams: 02/07/20 06:16 02/07/20 06:16 Hospitalist ROS - Review of Systems Constitutional: denies: fever, chills - Medication Medications: Active Medications Generic Name Dose Route Start Last Admin Trade Name Freq PRN Reason Stop Dose Admin Acetaminophen 650 mg 02/04/20 23:47 02/06/20 00:09 Acetaminophen 325 Mg Tab PO 650 mg Q4H PRN Administration Headache/Fever/Mild Pain (1-3) Acetaminophen/Codeine Phosphate 1 tab 02/05/20 23:06 02/07/20 11:46 Acetaminophen/Codeine 30-300mg Tablet PO 1 tab Q6H PRN Administration Moderate Pain (4-6) Albuterol/Ipratropium 3 ml 02/05/20 02:30 02/07/20 10:31 Ipratropium/Albuterol Sulfate 3 Ml Neb NEB 3 ml [id number] NICKIE Administration Enoxaparin Sodium 30 mg 02/06/20 09:00 02/07/20 08:40 Enoxaparin Sodium 30 Mg/0.3 Ml Syringe SC 30 mg 0900 NICKIE Administration Guaifenesin 600 mg 02/05/20 18:00 02/07/20 05:22 Guaifenesin Er 600 Mg Tab PO 600 mg 0600,1800 NICKIE Administration Cefepime HCl 2 gm/ Sodium 100 mls @ 200 mls/hr 02/06/20 17:00 02/07/20 08:38 Chloride IVPB 100 mls 0100,0900,1700 NICKIE Administration Isosorbide Mononitrate 60 mg 02/07/20 09:00 02/07/20 08:39 Isosorbide Mononitrate Er 60 Mg Tab PO 60 mg QAM NICKIE Administration Levetiracetam 500 mg 02/06/20 09:00 02/07/20 08:39 Levetiracetam 500 Mg Tab PO 500 mg BID NICKIE Administration Lidocaine 1 patch 02/05/20 09:00 02/07/20 08:40 Lidocaine 5% Patch TD 1 patch DAILY NICKIE Administration Losartan Potassium 100 mg 02/06/20 09:00 02/07/20 08:39 Losartan 25 Mg Tab PO 100 mg DAILY NICKIE Administration Mirabegron 50 mg 02/06/20 09:00 02/07/20 08:39 Mirabegron Er 25 Mg Tab PO 50 mg DAILY NICKIE Administration Miscellaneous Medication 1 each 02/05/20 21:00 02/06/20 20:26 Lidocaine Patch Removal 1 Each TOP 1 each 2100 NICKIE Administration Quetiapine Fumarate 25 mg 02/05/20 21:00 02/06/20 20:25 Quetiapine Fumarate 25 Mg Tab PO 25 mg HS NICKIE Administration Ranolazine 500 mg 02/05/20 21:00 02/07/20 08:39 Ranolazine 500 Mg Tab PO 500 mg BID NICKIE Administration Sodium Chloride 10 ml 02/06/20 09:00 02/07/20 08:40 Flush - Normal Saline 10 Ml Syringe IVF 10 ml Q12HR NICKIE Administration Sodium Chloride 10 ml 02/06/20 06:15 02/07/20 01:20 Flush - Normal Saline 10 Ml Syringe IVF 10 ml PRN PRN Administration Saline Flush Venlafaxine HCl 37.5 mg 02/05/20 09:00 02/07/20 08:39 Venlafaxine Xr 37.5 Mg Cap PO 37.5 mg DAILY NICKIE Administration Venlafaxine HCl 75 mg 02/05/20 09:00 12/22/20 08:39 Venlafaxine Hcl Xr 75 Mg Cap PO 75 mg DAILY NICKIE Administration - Exam General Appearance: NAD, awake alert Eye: PERRL, anicteric sclera ENT: normocephalic atraumatic, no oropharyngeal lesions Neck: no JVD Heart: RRR, no murmur, no gallops, no rubs Respiratory: CTAB, no wheezes, no rales, no ronchi Gastrointestinal: soft, non-tender, non-distended, normal bowel sounds Extremities: no cyanosis, no clubbing, no edema Skin: normal turgor, no lesions, no rashes Neurological: cranial nerve grossly intact, normal sensation to touch, no weakness Hosp A/P - Plan CTA chest: LLL consolidation with reticulonodular densities in lungs bilaterally. Nodular densities right lower lobe. Filling defects left lower lobe bronchi aspiration or mucous plugging. Bilateral hilar adenopathy This is an 85 year old female who presented with left sided chest pain and was incidentally found to have a pneumonia #Acute bilateral pneumonia #Chronic respiratory failure - CTA shows LLL consolidation and nodular densities in the right lower lobe and reticulonodular densities bilaterally. The patient was only received IV flagyl due to patient's concerns for antibiotic allegies - WBC is still 17.6. Continue IV vancomycin and cefepime for another day before switching to oral. - continue tessalon pearls and duonebs Hypertension - BP 188 today. Continue imdur 60 mg. Will add amlodipine 5 mg Weakness - patient very unsteady with walking. PT evaluation is recommending home with home health. Case management has been consulted Chest pain - resolved
[2020-02-07] MEDS ORDERED: Amlodipine 5 MG TAB PO SCH (14:45)
[2020-02-07 16:19] LABS: Vancomycin, Random Less than 1.1 ug/mL (See Comment)
[2020-02-07] MEDS: Vancomycin HCl 750 MG in Sodium Chloride 0.9% 250 ML 250 ML IVPB SCH (17:34)
[2020-02-07] MEDS: Benzonatate 100 MG CAP PO PRN (20:04)
[2020-02-07] MEDS: Lidocaine Patch Removal 1 EACH TOP SCH (20:05)
[2020-02-08] MEDS: Cefepime 2 GM in Sodium Chloride 0.9% 100 ML IVPB SCH ×3 (00:02→16:29)
[2020-02-08] MEDS: Acetaminophen/Codeine 30-300mg Tablet PO PRN ×2 (00:42→11:45)
[2020-02-08 04:48] LABS: Hemoglobin 12.4 g/dL (12.0-16.0); Mean Corpuscular HGB CONC 31.4 g/dL (32.0-36.0); Mean Corpuscular Hemoglobin 28.7 pg (27.0-31.0); Mean Corpuscular Volume 91.2 fL (78.0-98.0); Mean Platelet Volume 7.3 fL (7.4-10.4); Platelet Count 270 thou/uL (130-400); RBC Distribution Width 14.3 % (11.5-14.5); Red Blood Cell (RBC) Count 4.33 mill/uL (4.20-5.40); White Blood Cell (WBC) Count 21.6 thou/uL (4.8-10.8)
[2020-02-08] MEDS: guaiFENesin ER 600 MG TAB PO SCH ×2 (05:31→18:37)
[2020-02-08] MEDS: Venlafaxine XR 37.5 MG CAP PO SCH (08:30)
[2020-02-08] MEDS: Venlafaxine HCl XR 75 MG CAP PO SCH (08:30)
[2020-02-08] MEDS: levETIRAcetam 500 MG TAB PO SCH ×2 (08:30→20:45)
[2020-02-08] MEDS: Amlodipine 5 MG TAB PO SCH (08:30)
[2020-02-08] MEDS: Losartan 25 MG TAB PO SCH (08:30)
[2020-02-08] MEDS: Lidocaine 5% Patch TD SCH (08:31)
[2020-02-08] MEDS: Enoxaparin Sodium 30 MG/0.3 ML SYRINGE SC SCH (08:31)
[2020-02-08] MEDS ORDERED: diphenhydrAMINE 12.5 MG/5 ML UDCUP PO PRN (09:54)
--- NOTE | 2020-02-08 10:09 | RAD ---
EXAM: XR Chest 1 View Portable PROVIDED CLINICAL HISTORY: Leukocytosis, pneumonia COMPARISON: 02/04/2020 FINDINGS: Cardiac and mediastinal silhouette is unchanged in appearance. Vascular calcification is again seen. Emphysematous changes are redemonstrated. Bibasilar patchy parenchymal opacity appears similar. No pleural fluid or pneumothorax evident. IMPRESSION: Stable radiographic appearance of the chest.
[2020-02-08] MEDS ORDERED: hydrALAZINE 25 MG TAB PO SCH (10:30)
[2020-02-08] MEDS ORDERED: Doxycycline 100 MG CAP PO SCH (10:30)
[2020-02-08] MEDS: Lorazepam 0.5 MG TAB PO PRN ×2 (11:37→16:38)
--- NOTE | 2020-02-08 16:02 | PDOC.HOSPP ---
- Subjective Encounter Date: 02/08/20 Encounter Time: 09:00 Subjective: F/u: pneumonia The patient says her cough has significantly improved. She is still short of breath on exertion . She has not really ambulated with PT yet She reports dysuria. She says Dr. Parada prescribed her a pill and then told her she was resistant and needs IV medicine. Last urine culture was 08/19/2019, I do not see any other urine cultures She has decreased appetite still and is not sure why. The patient reports significant weight loss even with a good appetite. 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 and is concerned about a spot on her left ankle - Objective Vital Signs & Weight: Vital Signs (12 hours) Temp Pulse Pulse Pulse Resp BP BP 02/08/20 14:09 114 H 18 02/08/20 11:43 97.9 F 110 H 21 H 02/08/20 11:30 122 H 113 H 145/75 H 138/77 02/08/20 10:59 106 H 18 02/08/20 08:30 97.7 F 104 H 22 H 02/08/20 08:20 02/08/20 07:26 100 14 BP Pulse Ox 02/08/20 14:09 02/08/20 11:43 138/77 94 L 02/08/20 11:30 02/08/20 10:59 02/08/20 08:30 164/84 H 94 L 02/08/20 08:20 94 L 02/08/20 07:26 Weight Admit Weight 94 lb 12.78 oz Weight 94 lb 12.78 oz I&O: 02/07/20 02/08/20 02/09/20 06:59 06:59 06:59 Intake Total 1880 1320 Output Total 525 1060 Balance 1355 260 Result Diagrams: 02/08/20 04:26 02/07/20 06:16 Hospitalist ROS - Review of Systems Constitutional: denies: fever, chills - Medication Medications: Active Medications Generic Name Dose Route Start Last Admin Trade Name Freq PRN Reason Stop Dose Admin Acetaminophen 650 mg 02/04/20 23:47 02/06/20 00:09 Acetaminophen 325 Mg Tab PO 650 mg Q4H PRN Administration Headache/Fever/Mild Pain (1-3) Acetaminophen/Codeine Phosphate 1 tab 02/05/20 23:06 02/08/20 11:45 Acetaminophen/Codeine 30-300mg Tablet PO 1 tab Q6H PRN Administration Moderate Pain (4-6) Albuterol/Ipratropium 3 ml 02/05/20 02:30 02/08/20 14:09 Ipratropium/Albuterol Sulfate 3 Ml Neb NEB 3 ml [id number] NICKIE Administration Amlodipine Besylate 5 mg 02/08/20 09:00 02/08/20 08:30 Amlodipine 5 Mg Tab PO 5 mg DAILY NICKIE Administration Benzonatate 100 mg 02/05/20 16:22 02/07/20 20:04 Benzonatate 100 Mg Cap PO 100 mg TIDPRN PRN Administration Cough Enoxaparin Sodium 30 mg 02/06/20 09:00 02/08/20 08:31 Enoxaparin Sodium 30 Mg/0.3 Ml Syringe SC 30 mg 0900 NICKIE Administration Guaifenesin 600 mg 02/05/20 18:00 02/08/20 05:31 Guaifenesin Er 600 Mg Tab PO 600 mg 0600,1800 NICKIE Administration Cefepime HCl 2 gm/ Sodium 100 mls @ 200 mls/hr 02/06/20 17:00 02/08/20 08:31 Chloride IVPB 100 mls 0100,0900,1700 NICKIE Administration Vancomycin HCl 750 mg/ Sodium 250 mls @ 250 mls/hr 02/07/20 17:00 02/07/20 17:34 Chloride IVPB 250 mls 1700 NICKIE Administration Isosorbide Mononitrate 60 mg 02/07/20 09:00 02/08/20 08:30 Isosorbide Mononitrate Er 60 Mg Tab PO 60 mg QAM NICKIE Administration Levetiracetam 500 mg 02/06/20 09:00 02/08/20 08:30 Levetiracetam 500 Mg Tab PO 500 mg BID NICKIE Administration Lidocaine 1 patch 02/05/20 09:00 02/08/20 08:31 Lidocaine 5% Patch TD 1 patch DAILY NICKIE Administration Lorazepam 0.5 mg 02/08/20 09:45 02/08/20 11:37 Lorazepam 0.5 Mg Tab PO 0.5 mg Q4H PRN Administration Anxiety Losartan Potassium 100 mg 02/06/20 09:00 02/08/20 08:30 Losartan 25 Mg Tab PO 100 mg DAILY NICKIE Administration Mirabegron 50 mg 02/06/20 09:00 02/08/20 08:31 Mirabegron Er 25 Mg Tab PO 50 mg DAILY NICKIE Administration Miscellaneous Medication 1 each 02/05/20 21:00 02/07/20 20:05 Lidocaine Patch Removal 1 Each TOP 1 each 2100 NICKIE Administration Quetiapine Fumarate 25 mg 02/05/20 21:00 02/07/20 20:04 Quetiapine Fumarate 25 Mg Tab PO 25 mg HS NICKIE Administration Ranolazine 500 mg 02/05/20 21:00 02/08/20 08:30 Ranolazine 500 Mg Tab PO 500 mg BID NICKIE Administration Sodium Chloride 10 ml 02/06/20 09:00 02/08/20 08:31 Flush - Normal Saline 10 Ml Syringe IVF 10 ml Q12HR NICKIE Administration Sodium Chloride 10 ml 02/06/20 06:15 02/07/20 01:20 Flush - Normal Saline 10 Ml Syringe IVF 10 ml PRN PRN Administration Saline Flush Venlafaxine HCl 37.5 mg 02/05/20 09:00 02/08/20 08:30 Venlafaxine Xr 37.5 Mg Cap PO 37.5 mg DAILY NICKIE Administration Venlafaxine HCl 75 mg 02/05/20 09:00 02/08/20 08:30 Venlafaxine Hcl Xr 75 Mg Cap PO 75 mg DAILY NICKIE Administration - Exam General Appearance: NAD, awake alert General - other findings: underweight Eye: PERRL ENT: no oropharyngeal lesions Neck: supple, no JVD Heart: RRR, no murmur, no gallops, no rubs Respiratory - other findings: diminished breath sounds Gastrointestinal: soft, non-tender, non-distended, no palpable masses Extremities: no cyanosis, no clubbing, no edema Skin - other findings: dry skin noted on left ankle, no cancerous lesion noted Hosp A/P - Plan CTA chest: LLL consolidation with reticulonodular densities in lungs bilaterally. Nodular densities right lower lobe. Filling defects left lower lobe bronchi aspiration or mucous plugging. Bilateral hilar adenopathy Chest X ray 02/07: vascular calcification. Emphysema. Bibasilar patchy parenchymal opacity. This is an 85 year old female who presented with left sided chest pain and was incidentally found to have a pneumonia #Acute bilateral pneumonia #Chronic respiratory failure - CTA shows LLL consolidation and nodular densities in the right lower lobe and reticulonodular densities bilaterally. The patient was only received IV flagyl due to patient's concerns for antibiotic allergies - was started on vancomycin and cefepime on 02/05. WBC has increased to 21. Will add IV doxycycline. Repeat chest X ray shows no worsening - continue tessalon pearls and duonebs Leukocytosis - WBC increased to 21. Patient reports dysuria. Will check UA . Continue antibiotics Hypertension - BP 170, added amlodipine and hydralazine 25 mg tid with improvement Weakness - patient very unsteady with walking. PT evaluation is recommending home with home health. Case management has been consulted Chest pain - resolved
[2020-02-08] MEDS: hydrALAZINE 25 MG TAB PO SCH ×2 (16:31→20:44)
[2020-02-08] MEDS: Vancomycin HCl 750 MG in Sodium Chloride 0.9% 250 ML 250 ML IVPB SCH (16:31)
[2020-02-08 16:44] LABS: Vancomycin, Trough 1.2 ug/mL
[2020-02-08] MEDS: Doxycycline 100 MG CAP PO SCH (20:44)
[2020-02-08] MEDS: Lidocaine Patch Removal 1 EACH TOP SCH (20:46)
[2020-02-09] MEDS: Cefepime 2 GM in Sodium Chloride 0.9% 100 ML IVPB SCH ×3 (00:14→16:55)
[2020-02-09] MEDS: Vancomycin HCl 750 MG in Sodium Chloride 0.9% 250 ML 250 ML IVPB SCH ×2 (05:22→18:06)
[2020-02-09] MEDS: guaiFENesin ER 600 MG TAB PO SCH ×2 (05:28→16:56)
[2020-02-09] MEDS: Venlafaxine HCl XR 75 MG CAP PO SCH (07:59)
[2020-02-09] MEDS: Losartan 25 MG TAB PO SCH (07:59)
[2020-02-09] MEDS: Amlodipine 5 MG TAB PO SCH (07:59)
[2020-02-09] MEDS: hydrALAZINE 25 MG TAB PO SCH ×3 (08:00→20:05)
[2020-02-09] MEDS: Lidocaine 5% Patch TD SCH (08:00)
[2020-02-09] MEDS: Doxycycline 100 MG CAP PO SCH ×2 (08:00→20:03)
[2020-02-09] MEDS: Venlafaxine XR 37.5 MG CAP PO SCH (08:00)
[2020-02-09] MEDS: levETIRAcetam 500 MG TAB PO SCH ×2 (08:00→20:03)
[2020-02-09] MEDS: Enoxaparin Sodium 30 MG/0.3 ML SYRINGE SC SCH (08:01)
[2020-02-09 10:48] LABS: Hemoglobin 12.6 g/dL (12.0-16.0); Mean Corpuscular HGB CONC 32.7 g/dL (32.0-36.0); Mean Corpuscular Hemoglobin 29.5 pg (27.0-31.0); Mean Corpuscular Volume 90.1 fL (78.0-98.0); Mean Platelet Volume 7.6 fL (7.4-10.4); Platelet Count 261 thou/uL (130-400); RBC Distribution Width 14.2 % (11.5-14.5); Red Blood Cell (RBC) Count 4.28 mill/uL (4.20-5.40); White Blood Cell (WBC) Count 23.8 thou/uL (4.8-10.8)
--- NOTE | 2020-02-09 12:18 | PDOC.HOSPP ---
- Subjective Encounter Date: 02/09/20 Encounter Time: 11:00 Subjective: Pneumonia - the patient has mild intermittent cough. No shortness of breath. She is still on her baseline oxygen Leukocytosis - patient still has dysuria. UA ordered yesterday not done. Patient also reports extreme fatigue and doesn't want to do anything. She has lost significant weight. She denies night sweats. She states she had a left ankle lump for five years and was supposed to have a dermatology appointment to have it biopsied, however on exam, I do not see a significant lump and there is no tenderness. Daughter also states her bump on her left ankle is the best its looked in years The patient states she was due for an ECHO today and arterial dopplers of her legs ordered by - Objective Vital Signs & Weight: Vital Signs (12 hours) Temp Pulse Resp BP Pulse Ox 02/09/20 11:27 100 16 02/09/20 08:00 96 02/09/20 07:59 96 02/09/20 07:57 96 18 150/68 H 94 L 02/09/20 07:23 100 14 02/09/20 03:52 98.2 F 101 H 20 120/60 90 L 02/09/20 02:46 100 14 94 L Weight Admit Weight 94 lb 12.78 oz Weight 94 lb 12.78 oz I&O: 02/08/20 02/09/20 02/10/20 06:59 06:59 06:59 Intake Total 1320 1050 Output Total 1060 286 Balance 260 764 Result Diagrams: 02/09/20 10:07 02/07/20 06:16 Hospitalist ROS - Review of Systems Constitutional: denies: fever, chills - Medication Medications: Active Medications Generic Name Dose Route Start Last Admin Trade Name Freq PRN Reason Stop Dose Admin Acetaminophen 650 mg 02/04/20 23:47 02/06/20 00:09 Acetaminophen 325 Mg Tab PO 650 mg Q4H PRN Administration Headache/Fever/Mild Pain (1-3) Acetaminophen/Codeine Phosphate 1 tab 02/05/20 23:06 02/08/20 11:45 Acetaminophen/Codeine 30-300mg Tablet PO 1 tab Q6H PRN Administration Moderate Pain (4-6) Albuterol/Ipratropium 3 ml 02/05/20 02:30 02/09/20 11:27 Ipratropium/Albuterol Sulfate 3 Ml Neb NEB 3 ml [id number] NICKIE Administration Amlodipine Besylate 5 mg 02/08/20 09:00 02/09/20 07:59 Amlodipine 5 Mg Tab PO 5 mg DAILY NICKIE Administration Benzonatate 100 mg 02/05/20 16:22 02/07/20 20:04 Benzonatate 100 Mg Cap PO 100 mg TIDPRN PRN Administration Cough Doxycycline Hyclate 100 mg 02/08/20 21:00 02/09/20 08:00 Doxycycline 100 Mg Cap PO 100 mg BID NICKIE Administration Enoxaparin Sodium 30 mg 02/06/20 09:00 02/09/20 08:01 Enoxaparin Sodium 30 Mg/0.3 Ml Syringe SC 30 mg 0900 NICKIE Administration Guaifenesin 600 mg 02/05/20 18:00 02/09/20 05:28 Guaifenesin Er 600 Mg Tab PO 600 mg 0600,1800 NICKIE Administration Hydralazine HCl 25 mg 02/08/20 15:00 02/09/20 08:00 Hydralazine 25 Mg Tab PO 25 mg TID NICKIE Administration Cefepime HCl 2 gm/ Sodium 100 mls @ 200 mls/hr 02/06/20 17:00 02/09/20 08:00 Chloride IVPB 100 mls 0100,0900,1700 NICKIE Administration Vancomycin HCl 750 mg/ Sodium 250 mls @ 250 mls/hr 02/09/20 05:00 02/09/20 05:22 Chloride IVPB 250 mls 0500,1700 NICKIE Administration Isosorbide Mononitrate 60 mg 02/07/20 09:00 02/09/20 08:00 Isosorbide Mononitrate Er 60 Mg Tab PO 60 mg QAM NICKIE Administration Levetiracetam 500 mg 02/06/20 09:00 02/09/20 08:00 Levetiracetam 500 Mg Tab PO 500 mg BID NICKIE Administration Lidocaine 1 patch 02/05/20 09:00 02/09/20 08:00 Lidocaine 5% Patch TD 1 patch DAILY NICKIE Administration Lorazepam 0.5 mg 02/08/20 09:45 02/08/20 16:38 Lorazepam 0.5 Mg Tab PO 0.5 mg Q4H PRN Administration Anxiety Losartan Potassium 100 mg 02/06/20 09:00 02/09/20 07:59 Losartan 25 Mg Tab PO 100 mg DAILY NICKIE Administration Mirabegron 50 mg 02/06/20 09:00 02/09/20 07:58 Mirabegron Er 25 Mg Tab PO 50 mg DAILY NICKIE Administration Miscellaneous Medication 1 each 02/05/20 21:00 02/08/20 20:46 Lidocaine Patch Removal 1 Each TOP 1 each 2100 NICKIE Administration Quetiapine Fumarate 25 mg 02/05/20 21:00 02/08/20 20:45 Quetiapine Fumarate 25 Mg Tab PO 25 mg HS NICKIE Administration Ranolazine 500 mg 02/05/20 21:00 02/09/20 08:00 Ranolazine 500 Mg Tab PO 500 mg BID NICKIE Administration Sodium Chloride 10 ml 02/06/20 09:00 02/09/20 08:00 Flush - Normal Saline 10 Ml Syringe IVF 10 ml Q12HR NICKIE Administration Sodium Chloride 10 ml 02/06/20 06:15 02/07/20 01:20 Flush - Normal Saline 10 Ml Syringe IVF 10 ml PRN PRN Administration Saline Flush Venlafaxine HCl 37.5 mg 02/05/20 09:00 02/09/20 08:00 Venlafaxine Xr 37.5 Mg Cap PO 37.5 mg DAILY NICKIE Administration Venlafaxine HCl 75 mg 02/05/20 09:00 02/09/20 07:59 Venlafaxine Hcl Xr 75 Mg Cap PO 75 mg DAILY NICKIE Administration - Exam General Appearance: NAD, awake alert General - other findings: lost significant weight Eye: PERRL, anicteric sclera ENT: normocephalic atraumatic, no oropharyngeal lesions Neck: no JVD Heart: RRR, no murmur, no gallops, no rubs Respiratory - other findings: diminishied breath sounds, no crackles Gastrointestinal: soft, non-tender, non-distended, normal bowel sounds Extremities: no cyanosis, no clubbing, no edema Skin: normal turgor, no lesions, no rashes Hosp A/P - Plan CTA chest: LLL consolidation with reticulonodular densities in lungs bilaterally. Nodular densities right lower lobe. Filling defects left lower lobe bronchi aspiration or mucous plugging. Bilateral hilar adenopathy Chest X ray 02/07: vascular calcification. Emphysema. Bibasilar patchy parenchymal opacity. This is an 85 year old female who presented with left sided chest pain and was incidentally found to have a pneumonia #Acute bilateral pneumonia #Chronic respiratory failure - CTA shows LLL consolidation and nodular densities in the right lower lobe and reticulonodular densities bilaterally. The patient only received IV flagyl initially due to patient's concerns for antibiotic allergies. She was started on vancomycin and cefepime on 02/05. Doxycycline added 02/07 for atypical cove rage due to increasing leukocytosis - 02/08: WBC is stilll up to 23, however no new respiratory symptoms. Possibly may be non-infectious? Will consult ID Leukocytosis - WBC increased to 23. UA pending . CT abdomen will be ordered for cancer workup and X ray left ankle due to concerns previous doctors have mentioned about cancerous lesion on her ankle, although to me, skin lesion does not appear cancerous Left ankle pain - will check foot Xray. Had a mild lump which is nontender and has signifcantly shrunk in size per family members. Maybe was an abscesS? Hypertension- controlled - continue amlodipine and hydralazine Weakness - patient very unsteady with walking. PT evaluation is recommending home with home health. Case management has been consulted Chest pain - resolved
--- NOTE | 2020-02-09 12:57 | RAD ---
XR Foot Lt 3 View STANDARD INDICATION: Left foot pain COMPARISON: None. FINDINGS: Bones: There is diffuse osteopenia. No acute fracture or subluxation demonstrated. Joints: Joints spaces appear preserved. Lisfranc alignment: Lisfranc alignment appears within normal limits. Soft tissues: No soft tissue injury demonstrated. No radiographic foreign body demonstrated. IMPRESSION: No acute osseous abnormality.
[2020-02-09] MEDS ORDERED: Iopamidol-370 76% 500 ML 1 ML ONE (13:17)
[2020-02-09 13:22] LABS: Bacteria/HPF None Seen HPF (None Seen); Bilirubin Negative (Negative); Blood, Urine Negative (Negative); Clarity Clear (Clear); Glucose, Urine (Dipstick) Normal (Negative); Ketone, Urine Negative (Negative); Leukocyte 25 Leu/uL (Negative); Nitrite Negative (Negative); Protein, Urine (Dipstick) 30 mg/dL (Neg-Trace); RBC/HPF 0-3 HPF (0-3); Specific Gravity, Urine 1.023 (1.002-1.036); Squamous Epithelial 0-3 HPF (0-3); Urobilinogen Normal mg/dL (Less than 2)
[2020-02-09 13:24] LABS: Urine Culture Reflex Yes Yes
--- NOTE | 2020-02-09 16:20 | CT ---
CT OF THE ABDOMEN AND PELVIS WITH IV CONTRAST INDICATION: 85-year-old female with leukocytosis, weight loss and UTI COMPARISON: Prior CT the abdomen and pelvis with contrast dated August 05, 2019 FINDINGS: ABDOMEN: Lung bases: There are patchy airspace opacities and consolidation involving both lung bases suspiciou s for pneumonia possibly related to aspiration. Calcified granuloma the right lower lobe is stable. Liver: There is stable mild intrahepatic biliary duct dilatation. There is stable moderate extrahepat ic biliary ductal dilatation. The gallbladder is mildly distended. Gallbladder: Mildly distended Pancreas: Normal. Adrenal glands: Normal. Spleen: Normal. Kidneys and ureters: Stable bilateral renal hypodensities, incompletely characterized. No hydronephro sis. Vasculature: There are moderate vascular calcifications seen involving the visualized vasculature. Lymph nodes:No lymphadenopathy. Free fluid in abdomen:There is mild scattered free fluid. PELVIS: Small and large bowel: There is a moderate amount retained stool within the rectum and colon. The sma ll bowel is of normal caliber. Appendix:Not definitely seen Bladder: Prominent distention Rectal and perirectal soft tissues:Normal. Reproductive structures: Normal. Free fluid in pelvis: Mild free fluid Lymphadenopathy pelvis: No lymphadenopathy is evident. Osseous structures: There is diffuse osteopenia. 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 No subchondral collapse is evident. There is scattered degenerative and osteoarthritic changes. Soft tissues:Mild anasarca IMPRESSION: 1. Bibasilar pneumonia. This can be related to aspiration. 2. Nonspecific mild ascites and mild anasarca. 3. Stable incompletely characterized renal hypodensities. Follow-up renal ultrasound may be helpful f or further characterization. 4. Prominent distention of the bladder. Recommend consideration for Frazier catheter placement.
[2020-02-09] MEDS ORDERED: Polyethylene Glycol 3350 17 GM Packet PO SCH (17:30)
[2020-02-09] MEDS: Acetaminophen/Codeine 30-300mg Tablet PO PRN (18:01)
--- NOTE | 2020-02-09 18:21 | ULT ---
RENAL ULTRASOUND: 02/09/20 INDICATION: Renal hypodensity on CT. COMPARISON: Prior CT evaluation dated 02/09/20 at 4:09 p.m. FINDINGS: The right kidney measures 8.6 x 4.2 x 4.1 cm. Left kidney measures 7.4 x 3.1 x 2.8 cm. The lobulated hypodense lesion involving the lateral aspect of the left mid kidney seen on the prior CT measures 2.1 x 1.9 x 1.6 cm by ultrasound and has internal echoes present within the lesion. This is consistent with a complex cystic lesion. Small 5 mm cyst is seen involving the anterior aspect of the right mid kidney. There is an additional simple appearing cyst seen involving the superior pole of the right kidney measuring 1.2 cm. No hydr onephrosis is evident. There is prominent distention of the bladder with prevoid bladder volume of 464 mL. IMPRESSION: 1. Complex cystic lesion of the left mid kidney. Follow-up CT of the abdomen utilizing a renal m ass protocol would be helpful. This can be performed on a nonemergent basis. 2. Simple cysts of the right kidney. 3. Prominent distention of the bladder. POS: BH
[2020-02-09] MEDS: Lidocaine Patch Removal 1 EACH TOP SCH (20:14)
[2020-02-10] MEDS: Cefepime 2 GM in Sodium Chloride 0.9% 100 ML IVPB SCH ×3 (01:26→17:18)
[2020-02-10 04:37] LABS: Hemoglobin 11.4 g/dL (12.0-16.0); Mean Platelet Volume 7.6 fL (7.4-10.4); Platelet Count 268 thou/uL (130-400); RBC Distribution Width 14.1 % (11.5-14.5); White Blood Cell (WBC) Count 16.1 thou/uL (4.8-10.8)
[2020-02-10 04:57] LABS: Anion Gap 11 mmol/L (10-20); BUN (Urea Nitrogen) 30 mg/dL (9.8-20.1); Calc. Creatinine Clearance 28 mL/min (70-130); Calcium 10.1 mg/dL (7.8-10.44); Carbon Dioxide 27 mmol/L (23-31); Chloride 95 mmol/L (98-107); Glucose 106 mg/dL (83-110); Potassium 4.1 mmol/L (3.5-5.1); Sodium 129 mmol/L (136-145)
[2020-02-10] MEDS: Vancomycin HCl 750 MG in Sodium Chloride 0.9% 250 ML 250 ML IVPB SCH (05:02)
[2020-02-10] MEDS: guaiFENesin ER 600 MG TAB PO SCH ×2 (05:10→17:26)
[2020-02-10] MEDS: Lidocaine 5% Patch TD SCH (09:16)
[2020-02-10] MEDS: Losartan 25 MG TAB PO SCH (09:16)
[2020-02-10] MEDS: Doxycycline 100 MG CAP PO SCH ×2 (09:16→20:11)
[2020-02-10] MEDS: Enoxaparin Sodium 30 MG/0.3 ML SYRINGE SC SCH (09:16)
[2020-02-10] MEDS: levETIRAcetam 500 MG TAB PO SCH ×2 (09:17→20:11)
[2020-02-10] MEDS: Venlafaxine HCl XR 75 MG CAP PO SCH (09:17)
[2020-02-10] MEDS: Amlodipine 5 MG TAB PO SCH (09:17)
[2020-02-10] MEDS: Venlafaxine XR 37.5 MG CAP PO SCH (09:17)
[2020-02-10] MEDS: hydrALAZINE 25 MG TAB PO SCH ×3 (09:17→20:11)
[2020-02-10] MEDS: Lorazepam 0.5 MG TAB PO PRN (13:02)
--- NOTE | 2020-02-10 15:17 | PDOC.HOSPP ---
- Subjective Encounter Date: 02/10/20 Encounter Time: 08:00 Subjective: F/u: pneumonia, urine retention, anxiety The patient has only a mild cough. She is on her baseline oxygen, no fevers or chest pain. WBC has finally started to trend down The patient had urinary retention yesterday of over 1L. She had rosario placed yesterday. Patient states she had this problem a few weeks ago as well. Discussed with Dr. Parada who is her urologist and recommended leaving her rosario catheter in and doing voiding trial in one week . The patient reports small BM yesterday She still has diminished appetite. Her daughter yesterday says she hates the food. The patient states she still feels weak walking Anxiety - The patient also reports anxiety . She is getting her regular effexor dose, but states it is not helping. I have suggested you can use ativan prn - Objective Vital Signs & Weight: Vital Signs (12 hours) Temp Pulse Resp BP Pulse Ox 02/10/20 14:56 97 02/10/20 14:31 97 25 H 02/10/20 11:04 117 H 20 02/10/20 09:17 89 02/10/20 08:00 96.3 F L 89 17 129/60 95 02/10/20 07:58 89 20 02/10/20 07:54 96 02/10/20 03:58 98.6 F 84 16 108/57 L 92 L Weight Admit Weight 94 lb 12.78 oz Weight 94 lb 12.78 oz I&O: 02/09/20 02/10/20 02/11/20 06:59 06:59 06:59 Intake Total 1050 530 Output Total 286 2700 Balance 764 -2170 Result Diagrams: 02/10/20 04:11 02/10/20 04:11 Additional Labs: Accuchecks 02/10/20 11:01 POC Glucose 161 H Hospitalist ROS - Review of Systems Constitutional: reports: fever - Medication Medications: Active Medications Generic Name Dose Route Start Last Admin Trade Name Freq PRN Reason Stop Dose Admin Acetaminophen 650 mg 02/04/20 23:47 02/06/20 00:09 Acetaminophen 325 Mg Tab PO 650 mg Q4H PRN Administration Headache/Fever/Mild Pain (1-3) Acetaminophen/Codeine Phosphate 1 tab 02/05/20 23:06 02/09/20 18:01 Acetaminophen/Codeine 30-300mg Tablet PO 1 tab Q6H PRN Administration Moderate Pain (4-6) Albuterol/Ipratropium 3 ml 02/05/20 02:30 02/10/20 14:31 Ipratropium/Albuterol Sulfate 3 Ml Neb NEB 3 ml [id number] NICKIE Administration Amlodipine Besylate 5 mg 02/08/20 09:00 02/10/20 09:17 Amlodipine 5 Mg Tab PO 5 mg DAILY NICKIE Administration Benzonatate 100 mg 02/05/20 16:22 02/07/20 20:04 Benzonatate 100 Mg Cap PO 100 mg TIDPRN PRN Administration Cough Doxycycline Hyclate 100 mg 02/08/20 21:00 02/10/20 09:16 Doxycycline 100 Mg Cap PO 100 mg BID NICKIE Administration Enoxaparin Sodium 30 mg 02/06/20 09:00 02/10/20 09:16 Enoxaparin Sodium 30 Mg/0.3 Ml Syringe SC 30 mg 0900 NICKIE Administration Guaifenesin 600 mg 02/05/20 18:00 02/10/20 05:10 Guaifenesin Er 600 Mg Tab PO 600 mg 0600,1800 NICKIE Administration Hydralazine HCl 25 mg 02/08/20 15:00 02/10/20 14:56 Hydralazine 25 Mg Tab PO 25 mg TID NICKIE Administration Cefepime HCl 2 gm/ Sodium 100 mls @ 200 mls/hr 02/09/20 18:00 02/10/20 09:24 Chloride IVPB 100 mls 0200,1000,1800 NICKIE Administration Isosorbide Mononitrate 60 mg 02/07/20 09:00 02/10/20 09:17 Isosorbide Mononitrate Er 60 Mg Tab PO 60 mg QAM NICKIE Administration Levetiracetam 500 mg 02/06/20 09:00 02/10/20 09:17 Levetiracetam 500 Mg Tab PO 500 mg BID NICKIE Administration Lidocaine 1 patch 02/05/20 09:00 02/10/20 09:16 Lidocaine 5% Patch TD 1 patch DAILY NICKIE Administration Lorazepam 0.5 mg 02/08/20 09:45 02/10/20 13:02 Lorazepam 0.5 Mg Tab PO 0.5 mg Q4H PRN Administration Anxiety Losartan Potassium 100 mg 02/06/20 09:00 02/10/20 09:16 Losartan 25 Mg Tab PO 100 mg DAILY NICKIE Administration Mirabegron 50 mg 02/06/20 09:00 02/10/20 09:16 Mirabegron Er 25 Mg Tab PO 50 mg DAILY NICKIE Administration Miscellaneous Medication 1 each 02/05/20 21:00 02/09/20 20:14 Lidocaine Patch Removal 1 Each TOP Not Given 2100 NICKIE Quetiapine Fumarate 25 mg 02/05/20 21:00 02/09/20 20:04 Quetiapine Fumarate 25 Mg Tab PO 25 mg HS NICKIE Administration Ranolazine 500 mg 02/05/20 21:00 02/10/20 09:17 Ranolazine 500 Mg Tab PO 500 mg BID NICKIE Administration Sodium Chloride 10 ml 02/06/20 09:00 02/10/20 09:17 Flush - Normal Saline 10 Ml Syringe IVF 10 ml Q12HR NICKIE Administration Sodium Chloride 10 ml 02/06/20 06:15 02/07/20 01:20 Flush - Normal Saline 10 Ml Syringe IVF 10 ml PRN PRN Administration Saline Flush Venlafaxine HCl 37.5 mg 02/05/20 09:00 02/10/20 09:17 Venlafaxine Xr 37.5 Mg Cap PO 37.5 mg DAILY NICKIE Administration Venlafaxine HCl 75 mg 02/05/20 09:00 02/10/20 09:17 Venlafaxine Hcl Xr 75 Mg Cap PO 75 mg DAILY NICKIE Administration - Exam General Appearance: NAD, awake alert General - other findings: very malnourished Eye: PERRL, anicteric sclera ENT: normocephalic atraumatic, no oropharyngeal lesions Neck: no JVD Heart: RRR, no murmur, no gallops, no rubs Respiratory: no wheezes, no rales, no ronchi Respiratory - other findings: diminished breath sounds Gastrointestinal: soft, non-tender, non-distended, normal bowel sounds, no palpable masses Extremities: no cyanosis, no clubbing, no edema Skin: normal turgor, no lesions, no rashes Hosp A/P - Plan CTA chest: LLL consolidation with reticulonodular densities in lungs bilaterally. Nodular densities right lower lobe. Filling defects left lower lobe bronchi aspiration or mucous plugging. Bilateral hilar adenopathy Chest X ray 12/23: vascular calcification. Emphysema. Bibasilar patchy parenchymal opacity. Foot X ray 02/08: no acute abnormality This is an 85 year old female who presented with left sided chest pain and was incidentally found to have a pneumonia #Acute bilateral pneumonia #Chronic respiratory failure - CTA shows LLL consolidation and nodular densities in the right lower lobe and reticulonodular densities bilaterally. The patient only received IV flagyl init ially due to patient's concerns for antibiotic allergies. She was started on vancomycin and cefepime on 02/05 with no reaction. Doxycycline added 02/07 for atypical coverage due to increasing leukocytosis - 02/09: WBC is downtrending to 16. Will discontinue vancomycin. Sputum culture is growing pseudomonas. She is s/p 4 days of cefepime. Continue for three more days. Continue doxycycline day 3. Cannot switch to levaquin due to seizures on this. - I feel she needs rehab since she is so malnourished. Will consult case management Hyponatremia - sodium down to 129. Will start IV fluids Left ankle pain -foot X ray showed no abnormalities. Had a mild lump which is nontender and has significantly shrunk in size per family members. Possibly could have been abscess, does not appear cancerous Hypertension- controlled - continue amlodipine and hydralazine Weakness - patient very unsteady with walking. PT evaluation is recommending home with home health. Case management has been consulted Anemia - Hb 11.4, stable Chest pain - resolved
[2020-02-10] MEDS: Sodium Chloride 0.9% 1,000 ML IV SCH (17:18)
[2020-02-10] MEDS: Lidocaine Patch Removal 1 EACH TOP SCH (20:12)
--- NOTE | 2020-02-10 21:09 | PDOC.EVN ---
Event Note - Event Note Event Note: Notified by RN, patient with chest pain, 8/10 to left side of her chest. Occurred 30 min after night time meds given. BP 113 systolic. EKG requested. Troponins ordered. Patient seen & examined, by the time I assessed her, her pain had subsided. BP 103 systolic. Manual BP to be done. Awaiting EKG. Patient asymptomatic and without complaints at present.
[2020-02-10 21:33] LABS: Anion Gap 12 mmol/L (10-20); BUN (Urea Nitrogen) 29 mg/dL (9.8-20.1); Calc. Creatinine Clearance 27 mL/min (70-130); Calcium 9.9 mg/dL (7.8-10.44); Carbon Dioxide 24 mmol/L (23-31); Chloride 97 mmol/L (98-107); Glucose 121 mg/dL (83-110); Magnesium 1.5 mg/dL (1.6-2.6); Potassium 4.2 mmol/L (3.5-5.1); Sodium 129 mmol/L (136-145)
[2020-02-11] MEDS: Cefepime 2 GM in Sodium Chloride 0.9% 100 ML IVPB SCH ×3 (03:21→17:27)
[2020-02-11] MEDS ORDERED: Magnesium 2 GM/50 ML 2 GM in Premix Bag 1 BAG IVPB SCH (04:45)
[2020-02-11] MEDS: guaiFENesin ER 600 MG TAB PO SCH ×2 (05:20→17:27)
[2020-02-11 05:22] LABS: Mean Corpuscular HGB CONC 33.3 g/dL (32.0-36.0); Mean Corpuscular Hemoglobin 30.7 pg (27.0-31.0); Mean Corpuscular Volume 92.2 fL (78.0-98.0); Mean Platelet Volume 7.1 fL (7.4-10.4); Platelet Count 269 thou/uL (130-400); RBC Distribution Width 14.2 % (11.5-14.5); Red Blood Cell (RBC) Count 3.59 mill/uL (4.20-5.40); White Blood Cell (WBC) Count 12.8 thou/uL (4.8-10.8)
[2020-02-11 05:34] LABS: Anion Gap 12 mmol/L (10-20); BUN (Urea Nitrogen) 25 mg/dL (9.8-20.1); Calc. Creatinine Clearance 29 mL/min (70-130); Calcium 9.6 mg/dL (7.8-10.44); Carbon Dioxide 20 mmol/L (23-31); Chloride 101 mmol/L (98-107); Glucose 88 mg/dL (83-110); Potassium 4.4 mmol/L (3.5-5.1); Sodium 129 mmol/L (136-145)
[2020-02-11] MEDS: Doxycycline 100 MG CAP PO SCH ×2 (09:07→23:17)
[2020-02-11] MEDS: Enoxaparin Sodium 30 MG/0.3 ML SYRINGE SC SCH (09:07)
[2020-02-11] MEDS: hydrALAZINE 25 MG TAB PO SCH ×3 (09:07→23:07)
[2020-02-11] MEDS: Amlodipine 5 MG TAB PO SCH (09:08)
[2020-02-11] MEDS: Losartan 25 MG TAB PO SCH (09:08)
[2020-02-11] MEDS: Venlafaxine XR 37.5 MG CAP PO SCH (09:08)
[2020-02-11] MEDS: levETIRAcetam 500 MG TAB PO SCH ×2 (09:08→23:16)
[2020-02-11] MEDS: Venlafaxine HCl XR 75 MG CAP PO SCH (09:08)
[2020-02-11] MEDS: Lidocaine 5% Patch TD SCH (09:09)
[2020-02-11] MEDS: Sodium Chloride 0.9% 1,000 ML IV SCH ×2 (09:19→22:00)
[2020-02-11] MEDS ORDERED: Fleet Enema 133 ML BOT PR SCH (12:58)
--- NOTE | 2020-02-11 17:05 | PDOC.HOSPP ---
- Subjective Encounter Date: 02/11/20 Encounter Time: 09:45 Subjective: awake, no sob, feels better daughter in law at bedside - Objective Vital Signs & Weight: Vital Signs (12 hours) Temp Pulse Resp BP Pulse Ox 02/11/20 15:20 87 20 02/11/20 11:41 93 21 H 02/11/20 09:08 87 02/11/20 09:07 87 02/11/20 08:00 95 02/11/20 07:47 98.6 F 87 16 119/57 L 95 Weight Admit Weight 94 lb 12.78 oz Weight 94 lb 12.78 oz I&O: 02/10/20 02/11/20 02/12/20 06:59 06:59 06:59 Intake Total 530 1385 Output Total 2700 1150 Balance -2170 235 Result Diagrams: 02/11/20 04:30 02/11/20 04:30 Hospitalist ROS - Medication Medications: Active Medications Generic Name Dose Route Start Last Admin Trade Name Freq PRN Reason Stop Dose Admin Acetaminophen 650 mg 02/04/20 23:47 02/06/20 00:09 Acetaminophen 325 Mg Tab PO 650 mg Q4H PRN Administration Headache/Fever/Mild Pain (1-3) Acetaminophen/Codeine Phosphate 1 tab 02/05/20 23:06 02/09/20 18:01 Acetaminophen/Codeine 30-300mg Tablet PO 1 tab Q6H PRN Administration Moderate Pain (4-6) Albuterol/Ipratropium 3 ml 02/05/20 02:30 02/11/20 15:20 Ipratropium/Albuterol Sulfate 3 Ml Neb NEB 3 ml [id number] NICKIE Administration Amlodipine Besylate 5 mg 02/08/20 09:00 02/11/20 09:08 Amlodipine 5 Mg Tab PO 5 mg DAILY NICKIE Administration Benzonatate 100 mg 02/05/20 16:22 02/07/20 20:04 Benzonatate 100 Mg Cap PO 100 mg TIDPRN PRN Administration Cough Doxycycline Hyclate 100 mg 02/08/20 21:00 02/11/20 09:07 Doxycycline 100 Mg Cap PO 100 mg BID NICKIE Administration Enoxaparin Sodium 30 mg 02/06/20 09:00 02/11/20 09:07 Enoxaparin Sodium 30 Mg/0.3 Ml Syringe SC 30 mg 0900 NICKIE Administration Guaifenesin 600 mg 02/05/20 18:00 02/11/20 05:20 Guaifenesin Er 600 Mg Tab PO 600 mg 0600,1800 NICKIE Administration Hydralazine HCl 25 mg 02/08/20 15:00 02/11/20 14:21 Hydralazine 25 Mg Tab PO 25 mg TID NICKIE Administration Cefepime HCl 2 gm/ Sodium 100 mls @ 200 mls/hr 02/09/20 18:00 02/11/20 09:19 Chloride IVPB 100 mls 0200,1000,1800 NICKIE Administration Sodium Chloride 1,000 mls @ 75 mls/hr 02/10/20 15:15 02/11/20 09:19 Normal Saline 0.9% IV 1,000 mls .[id number] NICKIE Administration Isosorbide Mononitrate 60 mg 02/07/20 09:00 02/11/20 09:08 Isosorbide Mononitrate Er 60 Mg Tab PO 60 mg QAM NICKIE Administration Levetiracetam 500 mg 02/06/20 09:00 02/11/20 09:08 Levetiracetam 500 Mg Tab PO 500 mg BID NICKIE Administration Lidocaine 1 patch 02/05/20 09:00 02/11/20 09:09 Lidocaine 5% Patch TD 1 patch DAILY NICKIE Administration Lorazepam 0.5 mg 02/08/20 09:45 02/10/20 13:02 Lorazepam 0.5 Mg Tab PO 0.5 mg Q4H PRN Administration Anxiety Losartan Potassium 100 mg 02/06/20 09:00 02/11/20 09:08 Losartan 25 Mg Tab PO 100 mg DAILY NICKIE Administration Mirabegron 50 mg 02/06/20 09:00 02/11/20 09:08 Mirabegron Er 25 Mg Tab PO 50 mg DAILY NICKIE Administration Miscellaneous Medication 1 each 02/05/20 21:00 02/10/20 20:12 Lidocaine Patch Removal 1 Each TOP 1 each 2099 NICKIE Administration Quetiapine Fumarate 25 mg 02/05/20 21:00 02/10/20 20:11 Quetiapine Fumarate 25 Mg Tab PO 25 mg HS NICKIE Administration Ranolazine 500 mg 02/05/20 21:00 02/11/20 09:08 Ranolazine 500 Mg Tab PO 500 mg BID NICKIE Administration Sodium Chloride 10 ml 02/06/20 09:00 02/11/20 09:09 Flush - Normal Saline 10 Ml Syringe IVF Not Given Q12HR NICKIE Sodium Chloride 10 ml 02/06/20 06:15 02/07/20 01:20 Flush - Normal Saline 10 Ml Syringe IVF 10 ml PRN PRN Administration Saline Flush Venlafaxine HCl 37.5 mg 02/05/20 09:00 02/11/20 09:08 Venlafaxine Xr 37.5 Mg Cap PO 37.5 mg DAILY NICKIE Administration Venlafaxine HCl 75 mg 02/05/20 09:00 02/11/20 09:08 Venlafaxine Hcl Xr 75 Mg Cap PO 75 mg DAILY NICKIE Administration - Exam General Appearance: awake alert, ill appearing Eye: PERRL, anicteric sclera ENT: no oropharyngeal lesions, dry oral mucosa Neck: supple, no JVD Heart: RRR, no murmur Respiratory: no wheezes, rales, rhonchi Gastrointestinal: soft, non-tender, non-distended, normal bowel sounds Extremities: no cyanosis, no edema Neurological: cranial nerve grossly intact, no focal deficits Hosp A/P (1) PNA (pneumonia) Code(s): J18.9 - PNEUMONIA, UNSPECIFIED ORGANISM Status: Acute Qualifiers: Pneumonia type: due to Pseudomonas (2) Acute respiratory failure with hypoxia Code(s): J96.01 - ACUTE RESPIRATORY FAILURE WITH HYPOXIA Status: Acute (3) Urinary retention Code(s): R33.9 - RETENTION OF URINE, UNSPECIFIED Status: Acute (4) FTT (failure to thrive) in adult Status: Acute (5) Moderate protein-calorie malnutrition Code(s): E44.0 - MODERATE PROTEIN-CALORIE MALNUTRITION Status: Chronic (6) Osteoporosis Code(s): M81.0 - AGE-RELATED OSTEOPOROSIS W/O CURRENT PATHOLOGICAL FRACTURE Status: Chronic Qualifiers: Osteoporosis type: age-related (7) Physical deconditioning Code(s): R53.81 - OTHER MALAISE Status: Chronic (8) Seizure disorder Code(s): G40.909 - EPILEPSY, UNSP, NOT INTRACTABLE, WITHOUT STATUS EPILEPTICUS Status: Chronic (9) RYLAN (acute kidney injury) Code(s): N17.9 - ACUTE KIDNEY FAILURE, UNSPECIFIED Status: Resolved (10) Hyponatremia Code(s): E87.1 - HYPO-OSMOLALITY AND HYPONATREMIA Status: Acute (11) HTN (hypertension) Code(s): I10 - ESSENTIAL (PRIMARY) HYPERTENSION Status: Chronic Qualifiers: Hypertension type: essential hypertension Qualified Code(s): I10 - Essential (primary) hypertension - Plan is a very frail elderly lady with bmi of 15, chronic medical conditions with progressive decline from last 6 months per family continue cefepime and doxy for pna along with nebs and O2 on cozaar, hydralazine, ranexa, seroquel, myrbetriq, venlafaxine, imdur, keppra and lidocaine tts has taken a few steps with PT today, will need rehab or [facility] bed prognosis guarded, family is aware, I have given full updates to DIL at bedside to start palliative care and eventually transition to hospice, d/w daughter in law wbc down to 12k from 21k, is on iv fluids for low sod and hydration miralax, colace and prn fleets for constipation (last bm was 5 days back) mobilize as tolerated, encourage po intake
[2020-02-11] MEDS: Lidocaine Patch Removal 1 EACH TOP SCH (22:00)
[2020-02-11] MEDS: Acetaminophen/Codeine 30-300mg Tablet PO PRN (23:03)
[2020-02-11] MEDS: Benzonatate 100 MG CAP PO PRN (23:03)
[2020-02-11] MEDS: Docusate 100 MG CAP PO SCH (23:17)
[2020-02-12] MEDS: Cefepime 2 GM in Sodium Chloride 0.9% 100 ML IVPB SCH (04:42)
[2020-02-12] MEDS: guaiFENesin ER 600 MG TAB PO SCH ×2 (05:35→17:38)
[2020-02-12] MEDS: Enoxaparin Sodium 30 MG/0.3 ML SYRINGE SC SCH (09:12)
[2020-02-12] MEDS: Lidocaine 5% Patch TD SCH (09:12)
[2020-02-12] MEDS: hydrALAZINE 25 MG TAB PO SCH ×3 (09:13→21:12)
[2020-02-12] MEDS: Losartan 25 MG TAB PO SCH (09:13)
[2020-02-12] MEDS: Polyethylene Glycol 3350 17 GM Packet PO SCH (09:13)
[2020-02-12] MEDS: Doxycycline 100 MG CAP PO SCH ×2 (09:14→21:12)
[2020-02-12] MEDS: Venlafaxine HCl XR 75 MG CAP PO SCH (09:14)
[2020-02-12] MEDS: Docusate 100 MG CAP PO SCH ×2 (09:14→21:13)
[2020-02-12] MEDS: Amlodipine 5 MG TAB PO SCH (09:14)
[2020-02-12] MEDS: Venlafaxine XR 37.5 MG CAP PO SCH (09:14)
[2020-02-12] MEDS: levETIRAcetam 500 MG TAB PO SCH ×2 (09:14→21:12)
[2020-02-12] MEDS: Acetaminophen/Codeine 30-300mg Tablet PO PRN ×2 (09:18→17:41)
[2020-02-12 09:50] LABS: #Eosinphils 0.3 thou/uL (0.0-0.7); #Monocytes 0.9 thou/uL (0.11-0.59); #Neutrophils 11.1 thou/uL (1.40-6.50); %Basophils 0.3 % (0.0-1.0); %Eosinophils 2.1 % (0.0-10.0); %Lymphocytes 7.7 % (21.0-51.0); %Monocytes 6.7 % (0.0-10.0); %Neutrophils 83.2 % (42.0-75.0); Hemoglobin 11.7 g/dL (12.0-16.0); Mean Corpuscular HGB CONC 32.2 g/dL (32.0-36.0); Mean Corpuscular Hemoglobin 29.8 pg (27.0-31.0); Mean Corpuscular Volume 92.5 fL (78.0-98.0); Mean Platelet Volume 6.8 fL (7.4-10.4); Platelet Count 313 thou/uL (130-400); RBC Distribution Width 14.2 % (11.5-14.5); Red Blood Cell (RBC) Count 3.92 mill/uL (4.20-5.40); White Blood Cell (WBC) Count 13.4 thou/uL (4.8-10.8)
[2020-02-12 10:04] LABS: ALT (SGPT) 15 U/L (8-55); AST (SGOT) 18 U/L (5-34); Albumin 3.1 g/dL (3.4-4.8); Alkaline Phosphatase 85 U/L (40-110); Anion Gap 11 mmol/L (10-20); BUN (Urea Nitrogen) 23 mg/dL (9.8-20.1); Bilirubin, Total 0.3 mg/dL (0.2-1.2); Calc. Creatinine Clearance 9 mL/min (70-130); Carbon Dioxide 22 mmol/L (23-31); Chloride 102 mmol/L (98-107); Globulin 3.1 g/dL (2.4-3.5); Glucose 92 mg/dL (83-110); Potassium 4.3 mmol/L (3.5-5.1); Protein, Total 6.2 g/dL (6.0-8.3); Sodium 131 mmol/L (136-145)
[2020-02-12] MEDS ORDERED: Cefepime 2 GM in Sodium Chloride 0.9% 100 ML IVPB SCH (12:00)
[2020-02-12] MEDS: Sodium Chloride 0.9% 1,000 ML IV SCH (12:38)
--- NOTE | 2020-02-12 13:50 | PDOC.HOSPP ---
- Subjective Encounter Date: 02/12/20 Encounter Time: 10:15 Subjective: no sob says she got anxiety spell overnight and didn't feel good - Objective Vital Signs & Weight: Vital Signs (12 hours) Temp Pulse Resp BP BP Pulse Ox 02/12/20 12:00 98.1 F 70 19 129/62 02/12/20 10:32 78 16 02/12/20 09:14 90 02/12/20 09:13 90 145/69 H 02/12/20 08:00 98.2 F 90 17 145/65 H 93 L 02/12/20 06:52 84 19 02/12/20 03:15 98.4 F 88 18 108/55 L 94 L 02/12/20 02:47 20 Weight Admit Weight 94 lb 12.78 oz Weight 33 lb 13.808 oz I&O: 02/11/20 02/12/20 02/13/20 06:59 06:59 06:59 Intake Total 1385 1284 Output Total 1150 1620 Balance 235 -336 Result Diagrams: 02/12/20 09:25 02/12/20 09:25 Hospitalist ROS - Medication Medications: Active Medications Generic Name Dose Route Start Last Admin Trade Name Freq PRN Reason Stop Dose Admin Acetaminophen 650 mg 02/04/20 23:47 02/06/20 00:09 Acetaminophen 325 Mg Tab PO 650 mg Q4H PRN Administration Headache/Fever/Mild Pain (1-3) Acetaminophen/Codeine Phosphate 1 tab 02/05/20 23:06 02/12/20 09:18 Acetaminophen/Codeine 30-300mg Tablet PO 1 tab Q6H PRN Administration Moderate Pain (4-6) Albuterol/Ipratropium 3 ml 02/05/20 02:30 02/12/20 10:32 Ipratropium/Albuterol Sulfate 3 Ml Neb NEB 3 ml [id number] NICKIE Administration Amlodipine Besylate 5 mg 02/08/20 09:00 02/12/20 09:14 Amlodipine 5 Mg Tab PO 5 mg DAILY NICKIE Administration Benzonatate 100 mg 02/05/20 16:22 02/11/20 23:03 Benzonatate 100 Mg Cap PO 100 mg TIDPRN PRN Administration Cough Docusate Sodium 100 mg 02/11/20 21:00 02/12/20 09:14 Docusate 100 Mg Cap PO 100 mg BID NICKIE Administration Doxycycline Hyclate 100 mg 02/08/20 21:00 02/12/20 09:14 Doxycycline 100 Mg Cap PO 100 mg BID NICKIE Administration Enoxaparin Sodium 30 mg 02/06/20 09:00 02/12/20 09:12 Enoxaparin Sodium 30 Mg/0.3 Ml Syringe SC 30 mg 0900 NICKIE Administration Guaifenesin 600 mg 02/05/20 18:00 02/12/20 05:35 Guaifenesin Er 600 Mg Tab PO 600 mg 0600,1800 NICKIE Administration Hydralazine HCl 25 mg 02/08/20 15:00 02/12/20 09:13 Hydralazine 25 Mg Tab PO 25 mg TID NICKIE Administration Sodium Chloride 1,000 mls @ 75 mls/hr 02/10/20 15:15 02/12/20 12:38 Normal Saline 0.9% IV Not Given .[id number] [facility] Cefepime HCl 2 gm/ Sodium 100 mls @ 200 mls/hr 02/12/20 12:00 02/12/20 12:39 Chloride IVPB 100 mls 0400,1200,2000 NICKIE Administration Isosorbide Mononitrate 60 mg 02/07/20 09:00 02/12/20 09:14 Isosorbide Mononitrate Er 60 Mg Tab PO 60 mg QAM NICKIE Administration Levetiracetam 500 mg 02/06/20 09:00 02/12/20 09:14 Levetiracetam 500 Mg Tab PO 500 mg BID NICKIE Administration Lidocaine 1 patch 02/05/20 09:00 02/12/20 09:12 Lidocaine 5% Patch TD 1 patch DAILY NICKIE Administration Lorazepam 0.5 mg 02/08/20 09:45 02/10/20 13:02 Lorazepam 0.5 Mg Tab PO 0.5 mg Q4H PRN Administration Anxiety Losartan Potassium 100 mg 02/06/20 09:00 02/12/20 09:13 Losartan 25 Mg Tab PO 100 mg DAILY NICKIE Administration Mirabegron 50 mg 02/06/20 09:00 02/12/20 09:14 Mirabegron Er 25 Mg Tab PO 50 mg DAILY NICKIE Administration Miscellaneous Medication 1 each 02/05/20 21:00 02/11/20 22:00 Lidocaine Patch Removal 1 Each TOP Not Given 2100 [facility] Polyethylene Glycol 17 gm 02/12/20 09:00 02/12/20 09:13 Polyethylene Glycol 3350 17 Gm Packet PO 17 gm DAILY NICKIE Administration Quetiapine Fumarate 25 mg 02/05/20 21:00 02/11/20 23:16 Quetiapine Fumarate 25 Mg Tab PO 25 mg HS NICKIE Administration Ranolazine 500 mg 02/05/20 21:00 02/12/20 09:13 Ranolazine 500 Mg Tab PO 500 mg BID NICKIE Administration Sodium Chloride 10 ml 02/06/20 09:00 02/12/20 09:15 Flush - Normal Saline 10 Ml Syringe IVF 10 ml Q12HR NICKIE Administration Sodium Chloride 10 ml 02/06/20 06:15 02/07/20 01:20 Flush - Normal Saline 10 Ml Syringe IVF 10 ml PRN PRN Administration Saline Flush Venlafaxine HCl 37.5 mg 02/05/20 09:00 02/12/20 09:14 Venlafaxine Xr 37.5 Mg Cap PO 37.5 mg DAILY NICKIE Administration Venlafaxine HCl 75 mg 02/05/20 09:00 02/12/20 09:14 Venlafaxine Hcl Xr 75 Mg Cap PO 75 mg DAILY NICKIE Administration - Exam General Appearance: awake alert Eye: PERRL, anicteric sclera ENT: no oropharyngeal lesions, dry oral mucosa Neck: supple, no JVD Heart: RRR, no murmur Respiratory: no wheezes, rales, rhonchi Gastrointestinal: soft, non-tender, non-distended, normal bowel sounds Extremities: no cyanosis, no edema Neurological: cranial nerve grossly intact, no focal deficits Hosp A/P (1) PNA (pneumonia) Code(s): J18.9 - PNEUMONIA, UNSPECIFIED ORGANISM Status: Acute Qualifiers: Pneumonia type: due to Pseudomonas (2) Acute respiratory failure with hypoxia Code(s): J96.01 - ACUTE RESPIRATORY FAILURE WITH HYPOXIA Status: Acute (3) Urinary retention Code(s): R33.9 - RETENTION OF URINE, UNSPECIFIED Status: Acute (4) FTT (failure to thrive) in adult Status: Acute (5) Moderate protein-calorie malnutrition Code(s): E44.0 - MODERATE PROTEIN-CALORIE MALNUTRITION Status: Chronic (6) Osteoporosis Code(s): M81.0 - AGE-RELATED OSTEOPOROSIS W/O CURRENT PATHOLOGICAL FRACTURE Status: Chronic Qualifiers: Osteoporosis type: age-related (7) Physical deconditioning Code(s): R53.81 - OTHER MALAISE Status: Chronic (8) Seizure disorder Code(s): G40.909 - EPILEPSY, UNSP, NOT INTRACTABLE, WITHOUT STATUS EPILEPTICUS Status: Chronic (9) RYLAN (acute kidney injury) Code(s): N17.9 - ACUTE KIDNEY FAILURE, UNSPECIFIED Status: Resolved (10) Hyponatremia Code(s): E87.1 - HYPO-OSMOLALITY AND HYPONATREMIA Status: Acute (11) HTN (hypertension) Code(s): I10 - ESSENTIAL (PRIMARY) HYPERTENSION Status: Chronic Qualifiers: Hypertension type: essential hypertension Qualified Code(s): I10 - Essential (primary) hypertension - Plan is a very frail elderly lady with bmi of 15, chronic medical conditions with progressive decline from last 6 months per family continue omnicef and doxy for pna along with nebs and O2 on cozaar, hydralazine, ranexa, seroquel, myrbetriq, venlafaxine, imdur, keppra and lidocaine tts has taken a few steps with PT today, will need rehab or [facility] bed prognosis guarded, family is aware, I have given full updates to DIL at bedside 02/10 to start palliative care and eventually transition to hospice, d/w daughter in law 02/10 wbc down to 13k from 21k, is on iv fluids for low sod and hydration miralax, colace and prn fleets for constipation (last bm was 5 days back) mobilize as tolerated, encourage po intake
[2020-02-12] MEDS: Lorazepam 0.5 MG TAB PO PRN ×2 (14:09→21:18)
[2020-02-12] MEDS: Cefdinir 300 MG CAP PO SCH (21:12)
[2020-02-12] MEDS: Lidocaine Patch Removal 1 EACH TOP SCH (21:13)
[2020-02-13] MEDS: guaiFENesin ER 600 MG TAB PO SCH ×2 (05:09→17:37)
[2020-02-13 05:32] LABS: ALT (SGPT) 15 U/L (8-55); AST (SGOT) 18 U/L (5-34); Albumin 2.8 g/dL (3.4-4.8); Alkaline Phosphatase 77 U/L (40-110); Anion Gap 11 mmol/L (10-20); BUN (Urea Nitrogen) 20 mg/dL (9.8-20.1); Bilirubin, Total 0.3 mg/dL (0.2-1.2); Calc. Creatinine Clearance 11 mL/min (70-130); Calcium 9.6 mg/dL (7.8-10.44); Carbon Dioxide 23 mmol/L (23-31); Chloride 103 mmol/L (98-107); Globulin 2.9 g/dL (2.4-3.5); Glucose 85 mg/dL (83-110); Potassium 4.2 mmol/L (3.5-5.1); Protein, Total 5.7 g/dL (6.0-8.3); Sodium 133 mmol/L (136-145)
[2020-02-13] MEDS: Enoxaparin Sodium 30 MG/0.3 ML SYRINGE SC SCH (08:59)
[2020-02-13] MEDS: Polyethylene Glycol 3350 17 GM Packet PO SCH (08:59)
[2020-02-13] MEDS: Acetaminophen/Codeine 30-300mg Tablet PO PRN (09:02)
[2020-02-13] MEDS: levETIRAcetam 500 MG TAB PO SCH ×2 (09:03→21:30)
[2020-02-13] MEDS: Venlafaxine XR 37.5 MG CAP PO SCH (09:03)
[2020-02-13] MEDS: Doxycycline 100 MG CAP PO SCH ×2 (09:03→21:29)
[2020-02-13] MEDS: Losartan 25 MG TAB PO SCH (09:03)
[2020-02-13] MEDS: Amlodipine 5 MG TAB PO SCH (09:04)
[2020-02-13] MEDS: Cefdinir 300 MG CAP PO SCH ×2 (09:04→21:29)
[2020-02-13] MEDS: Docusate 100 MG CAP PO SCH ×2 (09:04→21:30)
[2020-02-13] MEDS: Venlafaxine HCl XR 75 MG CAP PO SCH (09:04)
[2020-02-13] MEDS: hydrALAZINE 25 MG TAB PO SCH ×3 (09:04→21:29)
[2020-02-13] MEDS: Sodium Chloride 0.9% 1,000 ML IV SCH ×3 (09:18→17:37)
[2020-02-13] MEDS: Lidocaine 5% Patch TD SCH (09:30)
[2020-02-13] MEDS: Lorazepam 0.5 MG TAB PO PRN ×2 (12:58→21:44)
--- NOTE | 2020-02-13 14:12 | PDOC.HOSPP ---
- Subjective Encounter Date: 02/13/20 Encounter Time: 07:55 Subjective: feels better did not have any anxiety issues overnight, says she slept good daughter in law at bedside - Objective Vital Signs & Weight: Vital Signs (12 hours) Temp Pulse Pulse Pulse Resp BP BP 02/13/20 12:20 98.5 F 78 17 02/13/20 10:42 107 H 101 H 116/53 L 125/56 L 02/13/20 09:04 97 02/13/20 08:54 97.7 F 97 19 02/13/20 07:21 90 14 02/13/20 05:08 98.8 F 88 16 02/13/20 02:25 16 BP Pulse Ox 02/13/20 12:20 124/81 94 L 02/13/20 10:42 02/13/20 09:04 02/13/20 08:54 142/65 H 91 L 02/13/20 07:21 96 02/13/20 05:08 139/65 95 02/13/20 02:25 Weight Admit Weight 94 lb 12.78 oz Weight 33 lb 13.808 oz I&O: 02/12/20 02/13/20 02/14/20 06:59 06:59 06:59 Intake Total 1284 1860 Output Total 8687 7088 Balance -336 -6882 Result Diagrams: 02/12/20 09:25 02/13/20 04:32 Hospitalist ROS - Medication Medications: Active Medications Generic Name Dose Route Start Last Admin Trade Name Freq PRN Reason Stop Dose Admin Acetaminophen 650 mg 02/04/20 23:47 02/06/20 00:09 Acetaminophen 325 Mg Tab PO 650 mg Q4H PRN Administration Headache/Fever/Mild Pain (1-3) Acetaminophen/Codeine Phosphate 1 tab 02/05/20 23:06 02/13/20 09:02 Acetaminophen/Codeine 30-300mg Tablet PO 1 tab Q6H PRN Administration Moderate Pain (4-6) Albuterol/Ipratropium 3 ml 02/05/20 02:30 02/13/20 10:51 Ipratropium/Albuterol Sulfate 3 Ml Neb NEB Not Given [id number] NICKIE Amlodipine Besylate 5 mg 02/08/20 09:00 02/13/20 09:04 Amlodipine 5 Mg Tab PO 5 mg DAILY NICKIE Administration Benzonatate 100 mg 02/05/20 16:22 02/11/20 23:03 Benzonatate 100 Mg Cap PO 100 mg TIDPRN PRN Administration Cough Cefdinir 300 mg 02/12/20 21:00 02/13/20 09:04 Cefdinir 300 Mg Cap PO 300 mg BID NICKIE Administration Docusate Sodium 100 mg 02/11/20 21:00 02/13/20 09:04 Docusate 100 Mg Cap PO 100 mg BID NICKIE Administration Doxycycline Hyclate 100 mg 02/08/20 21:00 02/13/20 09:03 Doxycycline 100 Mg Cap PO 100 mg BID NICKIE Administration Enoxaparin Sodium 30 mg 02/06/20 09:00 02/13/20 08:59 Enoxaparin Sodium 30 Mg/0.3 Ml Syringe SC 30 mg 0900 NICKIE Administration Guaifenesin 600 mg 02/05/20 18:00 02/13/20 05:09 Guaifenesin Er 600 Mg Tab PO 600 mg 0600,1800 NICKIE Administration Hydralazine HCl 25 mg 02/08/20 15:00 02/13/20 09:04 Hydralazine 25 Mg Tab PO 25 mg TID NICKIE Administration Sodium Chloride 1,000 mls @ 75 mls/hr 02/10/20 15:15 02/12/20 12:38 Normal Saline 0.9% IV Not Given .[id number] NICKIE Isosorbide Mononitrate 60 mg 02/07/20 09:00 02/13/20 09:03 Isosorbide Mononitrate Er 60 Mg Tab PO 60 mg QAM NICKIE Administration Levetiracetam 500 mg 02/06/20 09:00 02/13/20 09:03 Levetiracetam 500 Mg Tab PO 500 mg BID NICKIE Administration Lidocaine 1 patch 02/05/20 09:00 02/13/20 09:30 Lidocaine 5% Patch TD 1 patch DAILY NICKIE Administration Lorazepam 0.5 mg 02/08/20 09:45 02/13/20 12:58 Lorazepam 0.5 Mg Tab PO 0.5 mg Q4H PRN Administration Anxiety Losartan Potassium 100 mg 02/06/20 09:00 02/13/20 09:03 Losartan 25 Mg Tab PO 100 mg DAILY NICKIE Administration Mirabegron 50 mg 02/06/20 09:00 02/13/20 12:21 Mirabegron Er 25 Mg Tab PO Not Given DAILY NICKIE Miscellaneous Medication 1 each 02/05/20 21:00 02/12/20 21:13 Lidocaine Patch Removal 1 Each TOP Not Given 2100 NICKIE Polyethylene Glycol 17 gm 02/12/20 09:00 02/13/20 08:59 Polyethylene Glycol 3350 17 Gm Packet PO 17 gm DAILY NICKIE Administration Quetiapine Fumarate 25 mg 02/05/20 21:00 02/12/20 21:12 Quetiapine Fumarate 25 Mg Tab PO 25 mg HS NICKIE Administration Ranolazine 500 mg 02/05/20 21:00 02/13/20 09:02 Ranolazine 500 Mg Tab PO 500 mg BID NICKIE Administration Sodium Chloride 10 ml 02/06/20 09:00 02/13/20 09:04 Flush - Normal Saline 10 Ml Syringe IVF 10 ml Q12HR NICKIE Administration Sodium Chloride 10 ml 02/06/20 06:15 02/07/20 01:20 Flush - Normal Saline 10 Ml Syringe IVF 10 ml PRN PRN Administration Saline Flush Venlafaxine HCl 37.5 mg 02/05/20 09:00 02/13/20 09:03 Venlafaxine Xr 37.5 Mg Cap PO 37.5 mg DAILY NICKIE Administration Venlafaxine HCl 75 mg 02/05/20 09:00 02/13/20 09:04 Venlafaxine Hcl Xr 75 Mg Cap PO 75 mg DAILY NICKIE Administration - Exam General Appearance: awake alert Eye: PERRL, anicteric sclera ENT: no oropharyngeal lesions, dry oral mucosa Neck: supple, no JVD Heart: RRR, no murmur Respiratory: no wheezes, no rales, rhonchi Gastrointestinal: soft, non-tender, non-distended, normal bowel sounds Extremities: no cyanosis, no edema Neurological: cranial nerve grossly intact, no focal deficits Hosp A/P (1) PNA (pneumonia) Code(s): J18.9 - PNEUMONIA, UNSPECIFIED ORGANISM Status: Acute Qualifiers: Pneumonia type: due to Pseudomonas (2) Acute respiratory failure with hypoxia Code(s): J96.01 - ACUTE RESPIRATORY FAILURE WITH HYPOXIA Status: Acute (3) Urinary retention Code(s): R33.9 - RETENTION OF URINE, UNSPECIFIED Status: Acute (4) FTT (failure to thrive) in adult Status: Acute (5) Moderate protein-calorie malnutrition Code(s): E44.0 - MODERATE PROTEIN-CALORIE MALNUTRITION Status: Chronic (6) Osteoporosis Code(s): M81.0 - AGE-RELATED OSTEOPOROSIS W/O CURRENT PATHOLOGICAL FRACTURE Status: Chronic Qualifiers: Osteoporosis type: age-related (7) Physical deconditioning Code(s): R53.81 - OTHER MALAISE Status: Chronic (8) Seizure disorder Code(s): G40.909 - EPILEPSY, UNSP, NOT INTRACTABLE, WITHOUT STATUS EPILEPTICUS Status: Chronic (9) RYLAN (acute kidney injury) Code(s): N17.9 - ACUTE KIDNEY FAILURE, UNSPECIFIED Status: Resolved (10) Hyponatremia Code(s): E87.1 - HYPO-OSMOLALITY AND HYPONATREMIA Status: Acute (11) HTN (hypertension) Code(s): I10 - ESSENTIAL (PRIMARY) HYPERTENSION Status: Chronic Qualifiers: Hypertension type: essential hypertension Qualified Code(s): I10 - Essential (primary) hypertension - Plan is a very frail elderly lady with bmi of 15, chronic medical conditions with progressive decline from last 6 months per family continue omnicef and doxy for pna along with nebs and O2 on cozaar, hydralazine, ranexa, seroquel, myrbetriq, venlafaxine, imdur, keppra and lidocaine tts will need rehab or [facility] bed prognosis guarded, family is aware, I have given full updates to DIL at bedside 02/10, 02/12 to start palliative care and eventually transition to hospice, d/w daughter in law 02/10 wbc down to 13k from 21k, is on iv fluids for low sod and hydration miralax, colace and prn fleets for constipation mobilize as tolerated, encourage po intake may dc if placement is ready
--- NOTE | 2020-02-13 15:16 | EKG ---
Test Reason : Blood Pressure : / mmHG Vent. Rate : 093 BPM Atrial Rate : 093 BPM P-R Int : 180 ms QRS Dur : 126 ms QT Int : 386 ms P-R-T Axes : 041 040 037 degrees QTc Int : 479 ms Sinus rhythm with Premature atrial complexes Right bundle branch block Abnormal ECG When compared with ECG of 04-FEB-2020 22:20, (Unconfirmed) Premature atrial complexes are now Present GA interval has decreased Right bundle branch block is now Present Criteria for Septal infarct are no longer Present Confirmed by MELANIE RAMOS, DR. Echeverria (4) on 02/13/2020 3:16:22 PM Referred By: ONELIA MUNOZ Confirmed By:DR. Juwan NAVARRO MD
[2020-02-13] MEDS: HYDROcodone/Acetaminophen 5/325 mg Tablet PO PRN ×2 (17:37→21:43)
[2020-02-13] MEDS: Lidocaine Patch Removal 1 EACH TOP SCH (21:30)
[2020-02-14] MEDS: guaiFENesin ER 600 MG TAB PO SCH (05:19)
[2020-02-14] MEDS: Sodium Chloride 0.9% 1,000 ML IV SCH (05:19)
[2020-02-14] MEDS: Enoxaparin Sodium 30 MG/0.3 ML SYRINGE SC SCH (09:43)
[2020-02-14] MEDS: Polyethylene Glycol 3350 17 GM Packet PO SCH (09:44)
[2020-02-14] MEDS: Lidocaine 5% Patch TD SCH (09:44)
[2020-02-14] MEDS: Doxycycline 100 MG CAP PO SCH (09:44)
[2020-02-14] MEDS: Cefdinir 300 MG CAP PO SCH (09:44)
[2020-02-14] MEDS: Losartan 25 MG TAB PO SCH (09:45)
[2020-02-14] MEDS: hydrALAZINE 25 MG TAB PO SCH ×2 (09:45→16:27)
[2020-02-14] MEDS: Docusate 100 MG CAP PO SCH (09:45)
[2020-02-14] MEDS: Amlodipine 5 MG TAB PO SCH (09:46)
[2020-02-14] MEDS: Venlafaxine XR 37.5 MG CAP PO SCH (09:49)
[2020-02-14] MEDS: levETIRAcetam 500 MG TAB PO SCH (09:49)
[2020-02-14] MEDS: Venlafaxine HCl XR 75 MG CAP PO SCH (09:49)
[2020-02-14] MEDS: HYDROcodone/Acetaminophen 5/325 mg Tablet PO PRN (13:18)
--- NOTE | 2020-02-14 15:12 | PDOC.HOSPP ---
- Subjective Encounter Date: 02/14/20 Encounter Time: 09:15 Subjective: had good sleep overnight, no anxiety issues feels better, no sob daughter in law at bedside - Objective Vital Signs & Weight: Vital Signs (12 hours) Temp Pulse Resp BP Pulse Ox 02/14/20 12:42 98.0 F 89 18 137/65 91 L 02/14/20 09:34 97.7 F 85 17 134/68 95 02/14/20 06:49 104 H 18 94 L 02/14/20 05:18 98.8 F 73 18 130/60 98 Weight Admit Weight 94 lb 12.78 oz Weight 33 lb 13.808 oz I&O: 02/13/20 02/14/20 02/15/20 06:59 06:59 06:59 Intake Total 1860 9095 Output Total 8163 6130 Balance -1265 -640 Result Diagrams: 02/12/20 09:25 02/13/20 04:32 Hospitalist ROS - Medication Medications: Active Medications Generic Name Dose Route Start Last Admin Trade Name Freq PRN Reason Stop Dose Admin Acetaminophen 650 mg 02/04/20 23:47 02/06/20 00:09 Acetaminophen 325 Mg Tab PO 650 mg Q4H PRN Administration Headache/Fever/Mild Pain (1-3) Hydrocodone Bitart/Acetaminophen 1 tab 02/13/20 15:57 02/14/20 13:18 Hydrocodone/Acetaminophen 5/325 Mg Tablet PO 1 tab Q4H PRN Administration mild to moderate pain Albuterol/Ipratropium 3 ml 02/05/20 02:30 02/14/20 14:44 Ipratropium/Albuterol Sulfate 3 Ml Neb NEB Not Given [id number] NICKIE Amlodipine Besylate 5 mg 02/08/20 09:00 02/14/20 09:46 Amlodipine 5 Mg Tab PO 5 mg DAILY NICKIE Administration Benzonatate 100 mg 02/05/20 16:22 02/11/20 23:03 Benzonatate 100 Mg Cap PO 100 mg TIDPRN PRN Administration Cough Cefdinir 300 mg 02/12/20 21:00 02/14/20 09:44 Cefdinir 300 Mg Cap PO 300 mg BID NICKIE Administration Docusate Sodium 100 mg 02/11/20 21:00 02/14/20 09:45 Docusate 100 Mg Cap PO 100 mg BID NICKIE Administration Doxycycline Hyclate 100 mg 02/08/20 21:00 02/14/20 09:44 Doxycycline 100 Mg Cap PO 100 mg BID NICKIE Administration Enoxaparin Sodium 30 mg 02/06/20 09:00 02/14/20 09:43 Enoxaparin Sodium 30 Mg/0.3 Ml Syringe SC 30 mg 0900 NICKIE Administration Guaifenesin 600 mg 02/05/20 18:00 02/14/20 05:19 Guaifenesin Er 600 Mg Tab PO 600 mg 0600,1800 NICKIE Administration Hydralazine HCl 25 mg 02/08/20 15:00 02/14/20 09:45 Hydralazine 25 Mg Tab PO 25 mg TID NICKIE Administration Sodium Chloride 1,000 mls @ 75 mls/hr 02/10/20 15:15 02/14/20 05:19 Normal Saline 0.9% IV 1,000 mls .[id number] NICKIE Administration Isosorbide Mononitrate 60 mg 02/07/20 09:00 02/14/20 09:46 Isosorbide Mononitrate Er 60 Mg Tab PO 60 mg QAM NICKIE Administration Levetiracetam 500 mg 02/06/20 09:00 02/14/20 09:49 Levetiracetam 500 Mg Tab PO 500 mg BID NICKIE Administration Lidocaine 1 patch 02/05/20 09:00 02/14/20 09:44 Lidocaine 5% Patch TD 1 patch DAILY NICKIE Administration Lorazepam 0.5 mg 02/08/20 09:45 02/13/20 21:44 Lorazepam 0.5 Mg Tab PO 0.5 mg Q4H PRN Administration Anxiety Losartan Potassium 100 mg 02/06/20 09:00 02/14/20 09:45 Losartan 25 Mg Tab PO 100 mg DAILY NICKIE Administration Mirabegron 50 mg 02/06/20 09:00 02/14/20 09:45 Mirabegron Er 25 Mg Tab PO 50 mg DAILY NICKIE Administration Miscellaneous Medication 1 each 02/05/20 21:00 02/13/20 21:30 Lidocaine Patch Removal 1 Each TOP Not Given 2100 NICKIE Polyethylene Glycol 17 gm 02/12/20 09:00 02/14/20 09:44 Polyethylene Glycol 3350 17 Gm Packet PO 17 gm DAILY NICKIE Administration Quetiapine Fumarate 25 mg 02/05/20 21:00 02/13/20 21:30 Quetiapine Fumarate 25 Mg Tab PO 25 mg HS NICKIE Administration Ranolazine 500 mg 02/05/20 21:00 02/14/20 09:49 Ranolazine 500 Mg Tab PO 500 mg BID NICKIE Administration Sodium Chloride 10 ml 02/06/20 09:00 02/14/20 09:50 Flush - Normal Saline 10 Ml Syringe IVF 10 ml Q12HR NICKIE Administration Sodium Chloride 10 ml 02/06/20 06:15 02/07/20 01:20 Flush - Normal Saline 10 Ml Syringe IVF 10 ml PRN PRN Administration Saline Flush Venlafaxine HCl 37.5 mg 02/05/20 09:00 02/14/20 09:49 Venlafaxine Xr 37.5 Mg Cap PO 37.5 mg DAILY NICKIE Administration Venlafaxine HCl 75 mg 02/05/20 09:00 02/14/20 09:49 Venlafaxine Hcl Xr 75 Mg Cap PO 75 mg DAILY NICKIE Administration - Exam General Appearance: awake alert Eye: PERRL, anicteric sclera ENT: no oropharyngeal lesions, dry oral mucosa Neck: supple, no JVD Heart: RRR, no murmur Respiratory: no wheezes, no rales Gastrointestinal: soft, non-tender, non-distended, normal bowel sounds Extremities: no cyanosis, no edema Neurological: cranial nerve grossly intact, no focal deficits Hosp A/P (1) PNA (pneumonia) Code(s): J18.9 - PNEUMONIA, UNSPECIFIED ORGANISM Status: Acute Qualifiers: Pneumonia type: due to Pseudomonas (2) Acute respiratory failure with hypoxia Code(s): J96.01 - ACUTE RESPIRATORY FAILURE WITH HYPOXIA Status: Acute (3) Urinary retention Code(s): R33.9 - RETENTION OF URINE, UNSPECIFIED Status: Acute (4) FTT (failure to thrive) in adult Status: Acute (5) Moderate protein-calorie malnutrition Code(s): E44.0 - MODERATE PROTEIN-CALORIE MALNUTRITION Status: Chronic (6) Osteoporosis Code(s): M81.0 - AGE-RELATED OSTEOPOROSIS W/O CURRENT PATHOLOGICAL FRACTURE Status: Chronic Qualifiers: Osteoporosis type: age-related (7) Physical deconditioning Code(s): R53.81 - OTHER MALAISE Status: Chronic (8) Seizure disorder Code(s): G40.909 - EPILEPSY, UNSP, NOT INTRACTABLE, WITHOUT STATUS EPILEPTICUS Status: Chronic (9) RYLAN (acute kidney injury) Code(s): N17.9 - ACUTE KIDNEY FAILURE, UNSPECIFIED Status: Resolved (10) Hyponatremia Code(s): E87.1 - HYPO-OSMOLALITY AND HYPONATREMIA Status: Acute (11) HTN (hypertension) Code(s): I10 - ESSENTIAL (PRIMARY) HYPERTENSION Status: Chronic Qualifiers: Hypertension type: essential hypertension Qualified Code(s): I10 - Essential (primary) hypertension - Plan is a very frail elderly lady with bmi of 15, chronic medical conditions with progressive decline from last 6 months per family omnicef and doxy for pna along with nebs and O2 on cozaar, hydralazine, ranexa, seroquel, myrbetriq, venlafaxine, imdur, keppra and lidocaine tts dc to [facility] bed if accepted prognosis guarded, family is aware, I have given full updates to DIL at bedside 02/10, 02/12, 02/13 to start palliative care and eventually transition to hospice, d/w daughter in law 02/10 miralax, colace and prn fleets for constipation mobilize as tolerated, encourage po intake may dc if placement is ready
[2020-02-14] MEDS ORDERED: Bisacodyl 10 MG SUPP PR SCH (15:15)
[2020-02-14 16:13] VITALS: BP 126/60; TEMP 98.2
[2020-02-14] MEDS: Lorazepam 0.5 MG TAB PO PRN (16:45)
--- NOTE | 2020-02-14 18:22 | DIS ---
DATE OF ADMISSION: 02/06/2020 DATE OF DISCHARGE: 02/14/2020 DISCHARGE DISPOSITION: [facility] Swing bed. PRIMARY DISCHARGE DIAGNOSES: Pneumonia, acute respiratory failure with hypoxia, failure to thrive with BMI of less than 15, moderate protein calorie malnutrition, advanced age, urinary retention with indwelling Frazier catheter for another week and to follow up with Dr. Parada, physical deconditioning, severe osteoporosis, seizure disorder, acute kidney injury on arrival resolved, hyponatremia resolving, hypertension. PROCEDURES DONE DURING HOSPITALIZATION: CT angio chest done on the day of admission showed the findings of persistent consolidation in the left lower lobe with reticulonodular densities bilaterally, which were increased when compared to prior exam. Findings were worrisome for infectious process. No CT evidence of PE. Echo with 2D Doppler showed an EF of 60% to 65%, there was diastolic dysfunction. Abdominal and pelvic CAT scan done on 02/09/2020 showed findings of nonspecific mild ascites and mild anasarca. There is prominent distention of urinary bladder. Blood cultures x2, no growth, sputum culture grew Pseudomonas resistant to Zosyn but sensitive to all other antibiotics. Hemoglobin and hematocrit of 11 and 36, platelet count 313, white count on the 27th was 13, had a white count of 23 on the 24th. D-dimer 2.43. Discharge BUN and creatinine of 20 and 0.9, albumin 2.8, BUN 20, creatinine 0.9. Troponin x3 negative. BNP 36. COVID-19 PCR was not detected on 02/04/2020. Influenza A and B, PCR were negative as well. DISCHARGE MEDICATIONS: 1. Venlafaxine extended release 112.5 mg p.o. daily. 2. Keppra 500 mg p.o. twice daily. 3. Lipitor 40 mg p.o. at bedtime. 4. Myrbetriq extended release 50 mg daily. 5. Ranexa 500 mg twice daily. 6. Seroquel 25 mg at bedtime. 7. Hydralazine 25 mg three times daily. 8. Colace 100 mg twice daily. 9. DuoNeb 4 times daily p.r.n. 10. Imdur extended release 60 mg p.o. daily. 11. Lidocaine 5% transdermal patch once daily. 12. Losartan 100 mg p.o. daily. 13. MiraLAX 17 g daily. 14. Norvasc 5 mg daily. 15. Omnicef 300 mg p.o. twice daily for another 4 days. 16. Tylenol No. 4 one tablet three times daily p.r.n. for pain. ALLERGIES: THE PATIENT HAS MULTIPLE ALLERGIES TO SEVERAL GROUP OF MEDICATIONS. SHE APPARENTLY HAD ALLERGY TO CEPHALEXIN, BUT HAS TOLERATED OMNICEF AND CEFEPIME DURING HER STAY HERE. SHE IS ALLERGIC TO CIPRO, LEVOFLOXACIN, MACROBID, SULFA, MACROLIDES, PENICILLIN, DOXYCYCLINE, FLUCONAZOLE. BRIEF COURSE DURING HOSPITALIZATION: The patient got admitted on the 03 of February with complaints of shortness of breath. The patient was found to have had pneumonia with acute respiratory failure on top of her chronic respiratory failure. She was placed on oxygen and broad-spectrum antibiotics were started. Her sputum cultures grew Pseudomonas. Antibiotics were switched over to Omnicef and has tolerated it well without any allergic symptoms. The patient is 85 years old and is very frail with weighing nearly pounds. She has had gentle recovery during her stay. The patient has had some anxiety attacks with spells overnight, which have resolved in the last 3 to 4 days now. Her medications were optimized. All through her stay, her [id number] and POA were given complete updates. Though, she do not attempt to resuscitate. Ms. Wilkerson has had progressive decline in her functional status from almost a year and worse from last 6 months per family. She would benefit from palliative care and likely transition to hospice if she were to get worse. A total of 35 minutes was spent on discharge plan. Please see a [id number] documentation for the day of discharge on [employer]. Job ID: [id number]
== END 2020-02-14 17:00 | disposition swing bed (61) | DRG 177 ==
LOC: ERS 16:54 → 2NO 22:52 → OBSVTOIN 02-06 09:47
PROVIDERS: ADMIT Student in an Organized Health Care Education/Training Program; ATTEND Internal Medicine
DX: J15.1 Pneumonia due to Pseudomonas (principal); J96.01 Acute respiratory failure with hypoxia; J44.1 Chronic obstructive pulmonary disease with (acute) exacerbation; E87.1 Hypo-osmolality and hyponatremia; J44.0 Chronic obstructive pulmonary disease with (acute) lower respiratory infection; R64 Cachexia; Z68.1 Body mass index [BMI] 19.9 or less, adult; E44.0 Moderate protein-calorie malnutrition; N17.9 Acute kidney failure, unspecified; M81.0 Age-related osteoporosis without current pathological fracture; I10 Essential (primary) hypertension; I48.91 Unspecified atrial fibrillation; M48.00 Spinal stenosis, site unspecified; F17.210 Nicotine dependence, cigarettes, uncomplicated; I25.10 Atherosclerotic heart disease of native coronary artery without angina pectoris; G40.909 Epilepsy, unspecified, not intractable, without status epilepticus; G89.29 Other chronic pain; M54.9 Dorsalgia, unspecified; R07.9 Chest pain, unspecified; M25.572 Pain in left ankle and joints of left foot; F41.9 Anxiety disorder, unspecified; F32.9 Major depressive disorder, single episode, unspecified; D64.9 Anemia, unspecified; R62.7 Adult failure to thrive; R33.9 Retention of urine, unspecified; Z88.1 Allergy status to other antibiotic agents; Z88.0 Allergy status to penicillin; Z88.2 Allergy status to sulfonamides; Z88.8 Allergy status to other drugs, medicaments and biological substances; Z88.6 Allergy status to analgesic agent; Z79.899 Other long term (current) drug therapy; Z99.81 Dependence on supplemental oxygen; Z20.828 Contact with and (suspected) exposure to other viral communicable diseases
CPT/HCPCS: 0240U; 36415; 36416; 71045; 71275; 74177; 76770; 80048; 80053; 80202; 81001; 83605; 83690; 83735; 83880; 84484; 85025; 85027; 85379; 87040; 87070; 87077; 87086; 87186; 87205; 93005; 93010; 93306; 94640; 96365; 96367; 96372; 96375; 96376; G0378; J0692; J1650; J2920; J2930; J3370; J3475; J3490; J7050; J7512; J7620; Q9967; S0028